=== PATIENT | male | born 1950 | race Caucasian/White ===

== ENCOUNTER → 2018-01-23 | Day surgery (SDC) | payer OTHER, SELFPAY | END | disposition home or self-care (01) | PROVIDERS: Family Provider Family Medicine; PCP Family Medicine; Visit Provider Surgery | DX: Z12.11 Encounter for screening for malignant neoplasm of colon (principal); K57.30 Diverticulosis of large intestine without perforation or abscess without bleeding; K64.0 First degree hemorrhoids; D12.0 Benign neoplasm of cecum | CPT/HCPCS: 45380; 99152; 99153; J2250; J3010 ==

== ENCOUNTER → 2019-02-11 07:09 | Outpatient (CLI) | payer OTHER, SELFPAY ==
[2019-02-11 08:11] LABS: Add Manual Diff / Slide Review NO; Basophils Absolute Auto 0 /uL (0-100); Basophils Percent Auto 0.7 % (0-2); Eosinophils Absolute Auto 100 /uL (0-450); Eosinophils Percent Auto 1.3 % (2-4); Hematocrit 47.3 % (41-53); Hemoglobin 15.8 g/dL (13.5-17.5); Lymphocytes Absolute Auto 1500 /uL (1100-4500); Lymphocytes Percent Auto 22.7 % (25-40); Mean Corpuscular HGB Conc 33.5 % (30-36); Mean Corpuscular Hemoglobin 32.8 PG (26-34); Monocytes Absolute Auto 500 /uL (0-900); Monocytes Percent Auto 7.5 % (3-14); Neutrophils Absolute Auto 4500 /uL (1500-7000); Neutrophils Percent Auto 67.8 % (50-75); Platelet Count 256 X10^3/uL (150-400); Red Blood Cell Count 4.83 X10^6/uL (4.5-5.9); Red Cell Distribution Width 12.9 % (11.6-14.8); White Blood Cell Count 6.7 X10^3/uL (4.5-11.0)
[2019-02-11 08:15] LABS: Alanine Aminotransferase 29 IU/L (21-72); Albumin 3.9 g/dL (3.5-5.0); Albumin Globulin Ratio 1.4 (1.0-2.8); Alkaline Phosphatase 70 U/L (38-126); Aspartate Aminotransferase 44 IU/L (17-59); BUN Creatinine Ratio 21.1 (6-22); Bilirubin Total 0.8 mg/dL (0.2-1.3); Blood Urea Nitrogen 19 mg/dL (9-20); Carbon Dioxide 30 mmol/L (22-32); Chloride 103 mmol/L (98-107); Cholesterol 145 mg/dL (140-199); Estimated Glomerular Filt Rate > 60.0 mL/min (>60); Globulin 2.7 g/dL (1.7-4.1); Glucose 105 mg/dL (80-110); HDL Cholesterol 42 mg/dL (40-60); HEMOLYSIS < 15 (0-50); LDL Cholesterol Calculated 93 mg/dL (<100); Sodium 140 mmol/L (137-145); Total Protein 6.6 g/dL (6.3-8.2); Triglycerides 51 mg/dL (35-150)
[2019-02-11 08:42] LABS: Prostate Specific Antigen Scrn 1.15 ng/mL (0.1-4.0)
[2019-02-11 08:44] LABS: Thyroid Stimulating Hormone 2.75 uIU/mL (0.47-4.68)
== END ==
PROVIDERS: PCP Family Medicine; Visit Provider Family Medicine
DX: R89.9 Unspecified abnormal finding in specimens from other organs, systems and tissues (principal); Z12.5 Encounter for screening for malignant neoplasm of prostate; Z13.0 Encounter for screening for diseases of the blood and blood-forming organs and certain disorders involving the immune mechanism; Z13.1 Encounter for screening for diabetes mellitus; Z13.220 Encounter for screening for lipoid disorders; Z68.32 Body mass index [BMI] 32.0-32.9, adult
CPT/HCPCS: 36415; 80053; 80061; 84443; 85025; G0103

== ENCOUNTER → 2020-04-10 07:14 | Outpatient (CLI) | payer OTHER, SELFPAY ==
[2020-04-10 08:29] LABS: Add Manual Diff / Slide Review NO; Basophils Absolute Auto 0 /uL (0-100); Basophils Percent Auto 0.7 % (0-2); Eosinophils Absolute Auto 200 /uL (0-450); Eosinophils Percent Auto 3.3 % (2-4); Hematocrit 45.2 % (41-53); Lymphocytes Absolute Auto 1400 /uL (1100-4500); Lymphocytes Percent Auto 23.9 % (25-40); Mean Corpuscular HGB Conc 35.3 % (30-36); Mean Corpuscular Hemoglobin 34.7 PG (26-34); Mean Corpuscular Volume 98.3 fL (80-100); Monocytes Absolute Auto 400 /uL (0-900); Monocytes Percent Auto 7.7 % (3-14); Neutrophils Absolute Auto 3700 /uL (1500-7000); Neutrophils Percent Auto 64.4 % (50-75); Platelet Count 203 X10^3/uL (150-400); Red Cell Distribution Width 12.5 % (11.6-14.8); White Blood Cell Count 5.8 X10^3/uL (4.5-11.0)
[2020-04-10 08:54] LABS: Alanine Aminotransferase 24 IU/L (<50); Albumin 3.7 g/dL (3.5-5.0); Albumin Globulin Ratio 1.5 (1.0-2.8); Alkaline Phosphatase 49 U/L (38-126); Aspartate Aminotransferase 39 IU/L (17-59); BUN Creatinine Ratio 19.5 (6-22); Bilirubin Total 0.7 mg/dL (0.2-1.3); Blood Urea Nitrogen 17 mg/dL (9-20); Calcium 9.2 mg/dL (8.4-10.2); Carbon Dioxide 28 mmol/L (22-32); Chloride 105 mmol/L (98-107); Cholesterol 128 mg/dL (140-199); Estimated Glomerular Filt Rate > 60.0 mL/min (>60); Globulin 2.4 g/dL (1.7-4.1); Glucose 102 mg/dL (80-110); HDL Cholesterol 44 mg/dL (40-60); HEMOLYSIS < 15 (0-50); LDL Cholesterol Calculated 75 mg/dL (<100); Potassium 4.3 mmol/L (3.4-5.1); Sodium 138 mmol/L (137-145); Total Protein 6.1 g/dL (6.3-8.2); Triglycerides 44 mg/dL (35-150)
[2020-04-10 09:17] LABS: Prostate Specific Antigen Scrn 0.866 ng/mL (0.1-4.0)
== END ==
PROVIDERS: PCP Family Medicine; Referring Provider Family Medicine; Visit Provider Family Medicine
DX: N40.1 Benign prostatic hyperplasia with lower urinary tract symptoms (principal); R39.11 Hesitancy of micturition; Z12.5 Encounter for screening for malignant neoplasm of prostate
CPT/HCPCS: 36415; 80053; 80061; 85025; G0103

== ENCOUNTER → 2021-01-11 15:28 | Outpatient (CLI) | payer OTHER, SELFPAY ==
--- NOTE | 2021-01-11 15:31 | DI.RAD.S_ITS ---
PROCEDURE: XR CHEST 2V INDICATIONS: dizziness TECHNIQUE: 2 views of the chest were acquired. COMPARISON: [facility], , XR CXR 2 VIEW, 09/16/2003, 12:20. FINDINGS: Surgical changes and devices: None. Lungs and pleura: Lungs are clear. No pleural effusions or pneumothorax. Mediastinum: Mediastinal contours are normal. Heart size is normal. Bones and chest wall: No suspicious bony abnormalities. Soft tissues appear unremarkable. IMPRESSION: No acute cardiopulmonary disease. Dictated by: Suzie Denton M.D. on 01/11/2021 at 17:23 Approved by: Suzie Denton M.D. on 01/11/2021 at 17:23
--- NOTE | 2021-01-11 15:31 | DI.RAD.S_ITS ---
PROCEDURE: XR SHOULDER LT MIN 2V INDICATIONS: Left shoulder pain. TECHNIQUE: 3 views of the shoulder were acquired. COMPARISON: [facility], CR, XR CHEST 2V, 01/11/2021, 15:46. FINDINGS: Bones: No fractures or dislocations. No suspicious bony lesions. Downsloping acromion. Visualized ribs appear intact. Soft tissues: Calcific densities over the humeral head suspicious for calcific tendinitis. IMPRESSION: 1. Downsloping acromion likely impinging the rotator cuff tendons. If clinically indicated, MRI would be helpful. 2. Suspect rotator cuff calcific tendinitis. Dictated by: Suzie Denton M.D. on 01/11/2021 at 17:23 Approved by: Suzie Denton M.D. on 01/11/2021 at 17:25
[2021-01-11 16:05] LABS: Add Manual Diff / Slide Review NO; Basophils Absolute Auto 0 /uL (0-100); Basophils Percent Auto 0.5 % (0-2); Eosinophils Absolute Auto 100 /uL (0-450); Eosinophils Percent Auto 0.8 % (2-4); Hematocrit 42.5 % (41-53); Hemoglobin 14.5 g/dL (13.5-17.5); Lymphocytes Absolute Auto 1300 /uL (1100-4500); Lymphocytes Percent Auto 15.9 % (25-40); Mean Corpuscular Hemoglobin 32.2 PG (26-34); Mean Corpuscular Volume 94.5 fL (80-100); Monocytes Absolute Auto 600 /uL (0-900); Monocytes Percent Auto 6.6 % (3-14); Neutrophils Absolute Auto 6400 /uL (1500-7000); Neutrophils Percent Auto 76.2 % (50-75); Platelet Count 247 X10^3/uL (150-400); Red Cell Distribution Width 12.9 % (11.6-14.8); White Blood Cell Count 8.4 X10^3/uL (4.5-11.0)
[2021-01-11 16:35] LABS: Alanine Aminotransferase 18 IU/L (<50); Albumin Globulin Ratio 1.5 (1.0-2.8); Alkaline Phosphatase 68 U/L (38-126); Aspartate Aminotransferase 37 IU/L (17-59); BUN Creatinine Ratio 25.6 (6-22); Bilirubin Total 0.5 mg/dL (0.2-1.3); Blood Urea Nitrogen 21 mg/dL (9-20); Calcium 9.6 mg/dL (8.4-10.2); Carbon Dioxide 30 mmol/L (22-32); Chloride 105 mmol/L (98-107); Estimated Glomerular Filt Rate > 60.0 mL/min (>60); Globulin 2.6 g/dL (1.7-4.1); Glucose 121 mg/dL (80-110); HEMOLYSIS < 15 (0-50); Potassium 4.2 mmol/L (3.4-5.1); Sodium 141 mmol/L (137-145); Total Protein 6.6 g/dL (6.3-8.2)
[2021-01-11 17:52] LABS: TSH w/ Reflex to FT4 2.07 uIU/mL (0.47-4.68)
== END ==
PROVIDERS: PCP Family Medicine; Referring Provider Family Medicine; Visit Provider Family Medicine
DX: D33.2 Benign neoplasm of brain, unspecified (principal); R42 Dizziness and giddiness; D33.3 Benign neoplasm of cranial nerves; M25.512 Pain in left shoulder
CPT/HCPCS: 36415; 71046; 73030; 80053; 84443; 85025

== ENCOUNTER → 2021-01-22 13:45 | Outpatient (CLI) | payer OTHER, SELFPAY ==
--- NOTE | 2021-01-22 13:46 | DI.MRI.S_ITS ---
PROCEDURE: MR BRAIN (IAC) WWO CON INDICATIONS: persistent vertigo and hx of acoustic neuroma TECHNIQUE: Noncontrast sagittal T1 spin echo, axial FLAIR, axial gradient echo, axial diffusion and ADC through the brain. Axial thin-slice 3D CISS, coronal TruFISP, axial T1 spin echo with fat saturation through the internal auditory canals. After the administration of contrast, thin slice axial and coronal T1 spin echo with fat saturation through the internal auditory canals, and axial T1 spin echo with fat saturation through the brain. COMPARISON: [facility], , BRAIN (IAC) W AND WO CONTRAST, 10/05/2009, 8:08. [facility], , MRI BRAIN (IAC) W/WO CONTRAST, 10/08/2006, 10:25. [facility], , MRI BRAIN (IAC) W/WO CONTRAST, 09/21/2003, 14:02. FINDINGS: Image quality: Excellent. Cerebellopontine angles: No cerebellopontine angle masses. Inner ear structures appear normally formed. No suspicious enhancement in the internal auditory canal or along the course of the 7th cranial nerve. CSF spaces: Ventricles are normal in size and shape. No extra-axial fluid collections. Basal cisterns are patent. Brain: No intracranial bleeds or mass effects. Ferrer-white matter interface is intact. No abnormal intracranial enhancement. Diffusion weighted images demonstrate no acute ischemic insults. Brainstem appears normal. Curvilinear foci of decreased signal on all sequences and GRE blossoming noted in the right parietal lobe which is not significantly changed in size or contour compared to prior exams. Lesion may represent an area of focal superficial siderosis or could represent thrombosed venous anomaly such as DVA. Normal intravascular flow voids are present. Dural sinuses demonstrate normal postcontrast enhancement. Skull and face: Calvarial marrow signal is normal. Orbits appear normal. Sinuses: Mucosal thickening causes complete opacification of the right maxillary sinus. The mastoids are clear. IMPRESSION: 1. No evidence of residual or recurrent vestibular schwannoma. 2. No acute intracranial disease process. 3. No abnormal intracranial mass or mass effect. 4. No areas of acute or chronic infarction. 5. No suspicious postcontrast enhancement. Dictated by: Kaylan Hernandez MD, PhD on 01/22/2021 at 16:29 Approved by: Kaylan Hernandez MD, PhD on 01/22/2021 at 16:38
== END ==
PROVIDERS: PCP Family Medicine; Referring Provider Family Medicine; Visit Provider Family Medicine
DX: R42 Dizziness and giddiness (principal); D33.3 Benign neoplasm of cranial nerves
CPT/HCPCS: 70553; A9579

== ENCOUNTER → 2021-04-18 13:03 | Outpatient (CLI) | payer OTHER, SELFPAY ==
--- NOTE | 2021-04-18 13:48 | DI.MRI.S_ITS ---
PROCEDURE: MR SHOULDER LT WO CON INDICATIONS: ongoing pain TECHNIQUE: Noncontrast oblique coronal T2 fast spin echo with fat saturation, oblique sagittal T1 spin echo and T2 fast spin echo with fat saturation, axial T1 spin echo and T2 fast spin echo with fat saturation through the shoulder. COMPARISON: None. FINDINGS: Image quality: Excellent. Rotator cuff: There is full-thickness rupture of distal supraspinatus at its insertion on the humeral head with up to 2.9 cm medial retraction of torn tendon fibers to the level of acromion. Tendinosis and low-grade articular surface partial-thickness tear involving distal infraspinatus at its insertion on the humeral head is also seen. Distal subscapularis tendinosis and low-grade intrasubstance partial-thickness tear is noted. Sagittal images demonstrate moderate supraspinatus muscle atrophy. Bones and bursae: No bone marrow contusions or fractures. Moderate acromioclavicular joint and glenohumeral joint osteoarthritic changes are seen. Moderate amount of joint effusion and subacromial subdeltoid bursal fluid is noted. No gross intra-articular loose body. Capsule and soft tissues: There is suggestion of focal superior anterior labral tear at 12 to 1 o'clock position. The long head of the biceps tendinosis and moderate grade partial-thickness tear is seen. The rotator interval appears normal, without fibrosis. The coracohumeral ligament is normal in thickness. IMPRESSION: 1. Full-thickness rupture of distal supraspinatus at its insertion on the humeral head with up to 2.9 cm medial retraction of torn tendon fibers to the level of acromion. Moderate supraspinatus muscle atrophy. 2. Tendinosis and low to moderate grade articular surface partial thickness tear involving distal infraspinatus. Tendinosis and low-grade intrasubstance partial-thickness tear involving distal subscapularis. 3. Moderate acromioclavicular joint and glenohumeral joint osteoarthritis. Moderate amount of joint effusion and subacromial subdeltoid bursal fluid. 4. Suggestion of focal superior anterior labral tear at 12 to 1 o'clock position. 5. Tendinosis and moderate grade intrasubstance partial-thickness tear involving intra-articular portion of proximal long head of biceps tendon. Dictated by: Chu Wheeler M.D. on 04/18/2021 at 15:50 Approved by: Chu Wheeler M.D. on 04/18/2021 at 15:54
== END ==
PROVIDERS: PCP Family Medicine; Referring Provider Family Medicine; Visit Provider Family Medicine
DX: M25.512 Pain in left shoulder (principal); M75.122 Complete rotator cuff tear or rupture of left shoulder, not specified as traumatic; M19.012 Primary osteoarthritis, left shoulder; S46.112A Strain of muscle, fascia and tendon of long head of biceps, left arm, initial encounter
CPT/HCPCS: 73221

== ENCOUNTER 2021-06-12 09:00 | Outpatient (RCR) | payer OTHER, SELFPAY ==
--- NOTE | 2021-02-26 16:03 | PT.OIE ---
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) Dizziness and giddiness (02/26/21) Other reduced mobility (02/26/21) Past Medical History (Last Updated 01/11/21 @ 14:39 by Francesco Chester MD) Acoustic neuroma (1987) Benign colon polyp (01/23/18) BPH w urinary obs/LUTS Diverticular disease (2006) Edema Hearing loss (1987) History of poliovirus vaccination (1954) History of recurrent ear infection (1955) Hyperglycemia Measles (1955) Nocturia Screening for hyperlipidemia Skin cancer (1993) Tinnitus (1967) Vertigo Past Surgical History (Last Reviewed 11/22/20 @ 18:22 by Marcelo Weeks MD) Anesthesia H/O knee surgery H/O vasectomy History of brain surgery (1987) History of colonoscopy (11/24/06) History of colonoscopy with polypectomy (01/23/18) Status post surgical removal of malignant neoplasm of skin (2010) Status post tonsillectomy and adenoidectomy Visit Care Team Role Provider Type Neal Foote DO Attending Provider Physician Primary Care Provider Referring Provider Specialty: [facility] Address: [address] [place] [address], [facility] Email: Physical Therapy Initial Evaluation PT-OP-A Visit Information Start: 02/26/21 07:29 Freq: Status: Active Protocol: Document 02/26/21 14:31 MB (Rec: 02/26/21 14:49 MB [id number]) Out-Patient Physical Therapy Visit Information Visit Information Visit Type Initial Evaluation Visit Note [facility] [place], Medicare Advantage Visit Start Time 14:31 Visit Stop Time 15:15 Total Visit Minutes 44 Visit Number 1 Evaluation Information Evaluation Date 02/26/21 Precautions Precautions Fall risk PT-OP-B Current Condition Start: 02/26/21 07:29 Freq: Status: Active Protocol: Document 02/26/21 14:31 MB (Rec: 02/26/21 14:49 MB [id number]) Current Condition History of Current Condition Onset Date 12/12/20 Current Complaints Balance issues come and go History of Current Condition Pt states that after his second COVID shot, he had a lot of dizziness and he was horizontal for two days. He had worst dizziness and nausea with eyes opened. He vomited a lot. Pt saw a neurologist. He was concerned about PD and the neurologist said it is not PD. He was told to keep doing the Carrie 3x/day which he has been doing. He was told that dizziness should go away within few months. He went to an opthamologist and was told that his vision is okay. He did see abnormal eye movement in his right eye. 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 He lost his balance nerve and auditory nerve with the surgery. 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 He had balance trouble after the surgery. Ultimately, his brain adjusted and he had normal balance and could ride a bike. He has ringing in his right ear. PMH: essential tremor, removed right acoustic neuroma, B foot numbness Pt states that he is getting better. He did have falls and injured his left shoulder. He always fell to the left. Pt reports left shoulder pain rated 3-4/10. Pt reports 5 falls in the last year and three in the last three months . He is just now feeling comfortable driving in town. Pt reports numbness and tingling in bottom of his feet only, vision changes with reports that his vision bounces around and roaring/ ringing in the ears, performance of sit-ups, chronic hearing change. Pt denies ear pressure, history of concussion or whiplash, weakness, sinus/allergy issues , trouble swallowing, recent overhead lifting, B12 deficiency, eye pressure changes, chirpractor treatment , TMJ/headache. Pt is afraid of falling, walking downstairs is a challenge, he cannot ride a bike and occ has to use his walking sticks. Walking in the dark is really a problem. Prior Treatments and Tests MR brain: some changes on the report but the impression says NAD X-ray left shoulder: downsloping acromion likely impinging the rotator cuff tendons, if clinically indicated, MRI may be helpful. Treatment Goals Patient/Caregiver Goals To improve balance and confidence with walking. PT-OP-C Subjective Start: 02/26/21 07:29 Freq: Status: Active Protocol: Document 02/26/21 14:31 MB (Rec: 02/26/21 15:31 MB [id number]) OP-PT Subjective Patient Comments Patient Comments See history of current condition Patient Reported Progress Improving PT-OP-D Balance Start: 02/26/21 07:29 Freq: Status: Active Protocol: Document 02/26/21 14:31 MB (Rec: 02/26/21 16:03 MB [id number]) OP-PT Balance Assessment Sitting Balance Static Sitting Balance Ability Fair Dynamic Sitting Balance Ability Fair Sitting Balance Comments UE support for static and dynamic sitting balance Standing Balance Static Standing Balance Ability Fair Dynamic Standing Balance Ability Fair Standing Balance Comments Pt occ reaches for chair d/t LOB Mullins Fall Scale Copyright Permission PT-OP-H Neuro Start: 02/26/21 07:29 Freq: Status: Active Protocol: Document 02/26/21 14:31 MB (Rec: 02/26/21 16:03 MB [id number]) Sensation Evaluation Comments Summary Comments Pt reports chronic change in sensation both feet Coordination Evaluation Comments Coordination Comments B finger to nose altered d/t B tremor, more noticeable in right UE today Vital Signs Comments Vital Signs Comments Positive orthostatic assessment with BP and HR in LUE: supine 168/81, 73; standing 150/80, 76; standing 30 sec 140/76, 69; standing 1 min 30 sec 144/77, 70. Pt reports spinning type dizziness upon standing PT-OP-J Posture/Palpation/Skin Start: 02/26/21 07:29 Freq: Status: Active Protocol: Document 02/26/21 14:31 MB (Rec: 02/26/21 16:03 MB [id number]) Posture Evaluation Comments Posture Comments Standing with shoes donned: forward head with left tragus 2 1/2 inch in front of left AC joint, rounded left shoulder, decreased cervical and thoracic curvature, increased convexity right thoracic spine , right shoulder lower than the left with some scapular positioning differences, anterior tilt pelvis, head rests in mild right rotation and left SB PT-OP-K Range of Motion Start: 02/26/21 07:29 Freq: Status: Active Protocol: Document 02/26/21 14:31 MB (Rec: 02/26/21 16:03 MB [id number]) Cervical Spine Range of Motion Cervical Spine Active Testing Position Standing Flexion 40 Extension 30 Rotation Left 20 Rotation Right 35 Comments Increased tension right SCM and scalenes Shoulder Goniometric Range of Motion Shoulder ROM Limitations Comments B shoulder flexion and abduction grossly normal and pt reports pain 3-4/10 left shoulder PT-OP-M Strength Start: 02/26/21 07:29 Freq: Status: Active Protocol: Document 02/26/21 14:31 MB (Rec: 02/26/21 16:03 MB [id number]) Shoulder Strength Shoulder Manual Muscle Testing Left Comments NT in setting of injury and painful active movement Right Flexion 5 Normal Abduction (C5) 5 Normal Elbow/Forearm Strength Elbow and Forearm Manual Muscle Testing Left Comments NT in setting of left shoulder injury Right Flexion (C6) 5 Normal Extension (C7) 5 Normal Pronation 5 Normal Supination 5 Normal Wrist Strength Wrist Manual Muscle Testing Left Flexion (C7) 5 Normal Extension (C6) 4 Good Right Flexion (C7) 5 Normal Extension (C6) 5 Normal PT-OP-O Vestibular Start: 02/26/21 07:29 Freq: Status: Active Protocol: Document 02/26/21 14:31 MB (Rec: 02/26/21 16:03 MB [id number]) Vestibular Assessment Visual Testing Smooth Pursuits Horizontal Normal Smooth Pursuits Vertical Normal Gaze Evoked Nystagmus With Fixation Negative Convergence Test WNL Spontaneous Nystagmus Negative Positional Testing [place]-Hallpike Negative Left,Negative Right Rolling Test Negative Left,Negative Right Comments Vestibular Comments Pt reports dizziness with Roll Test moving from right to left and may have had one beat nystagmus but very difficult to see if it was PT-OP-Q Treatments Start: 02/26/21 07:29 Freq: Status: Active Protocol: Document 02/26/21 14:31 MB (Rec: 02/26/21 16:03 MB [id number]) Self-Care/Home Management Treatment Education Other Education Stop sit ups and self-Carrie Increase non-caffeinated fluid intake Signs and sxs of PD, BPPV, decreasing BP Proper sleeping position with towel roll in pillow case PT-OP-T Assessment and Plan Start: 02/26/21 07:29 Freq: Status: Active Protocol: Document 02/26/21 14:31 MB (Rec: 02/26/21 16:03 MB [id number]) Physical Therapy Assessment Rehab Potential Rehabilitation Potential Fair Evaluation Complexity Number of Personal Factors/Comorbidities 1-2 Number of Body Systems Impaired 3 Clinical Presentation at Evaluation Evolving Impairments Impairments Activity Tolerance,Balance, Coordination,Functional Activities,Functional Mobility ,Gait,Pain,Posture,ROM, Sensation,Soft Tissue Mobility ,Strength,Vestibular Other Concerns Fall Risk Yes Goals 4 Marine Electrician Goal (LTG) Pt will gait train at least 1400 feet in 6 minutes without AD to decrease fall risk by . LTG Duration 8 weeks 3 Marine Electrician Goal (LTG) Pt will perform HEP with I including postural, cervical, VOR, balance, and relaxation exercises to improve dizziness and balance by 04/28/21. LTG Duration 8 weeks 2 Skilled Nursing Goal (LTG) Pt will perform WNLs on FGA to decrease fall risk by 04/28/21 . LTG Duration 8 weeks 1 Marine Electrician Goal (LTG) Pt will deny falls to decrease risk of injury by 04/28/21. LTG Duration 8 weeks Assessment Summary Assessment Pt is a 70 y/o male presenting with postural changes, thoracic and cervical limitations, cervical myofascial changes, imbalance, B UE and cervical tremor and left shoulder pain and weakness. BPPV testing is essentially negative with reports of dizziness with log roll from right side lying to upright (rolling left) with perhaps one quick beat nystagmus. Orthostatic testing is positive. Pt reports he has been performing the Carrie 3x/day and performing sit ups. PT ed him to stop this in setting of his cervical changes and dizziness. 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 Pt's brain MRI does have a lot of comments in it and the overall impression is negative. He has a history of right schanoma removal. Of note, his right pupil constricts less than the left when checked by pen light in dark room today. Physical Therapy Plan Frequency and Duration Frequency of Treatment 2x/Week Duration of Treatment 8 weeks Plan of Care Start Date 02/26/21 Plan of Care End Date 04/30/21 Therapeutic Interventions Therapeutic Interventions Balance Training,Canalithic Repositioning,Coordination Training,Gait Training,Home Exercise Program,Joint Mobilizations,Manual Therapy, Neuromuscular Re-education, Patient/Caregiver Education, Self-Care/Home Management,Soft Tissue Mobilization,Taping, Therapeutic Activities, Therapeutic Exercises, Vestibular Rehabilitation Modalities Cold Pack/Ice Massage,Hot Packs Next Visit Focus/Plan Next Note Type Treatment Note Next Visit Plan Postural training, use of racquet ball, consider VOR testing
--- NOTE | 2021-02-26 16:03 | PT.OPPOC ---
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) Dizziness and giddiness (02/26/21) Other reduced mobility (02/26/21) Visit Care Team Role Provider Type Neal Foote DO Attending Provider Physician Primary Care Provider Referring Provider Specialty: [facility] Practice Address: [address] [place] [address], [facility] Email: Plan Of Care PT-OP-T Assessment and Plan Start: 02/26/21 07:29 Freq: Status: Active Protocol: Document 02/26/21 14:31 MB (Rec: 02/26/21 16:03 MB [id number]) Physical Therapy Assessment Rehab Potential Rehabilitation Potential Fair Evaluation Complexity Number of Personal Factors/Comorbidities 1-2 Number of Body Systems Impaired 3 Clinical Presentation at Evaluation Evolving Impairments Impairments Activity Tolerance,Balance, Coordination,Functional Activities,Functional Mobility ,Gait,Pain,Posture,ROM, Sensation,Soft Tissue Mobility ,Strength,Vestibular Other Concerns Fall Risk Yes Goals 4 Mcc Goal (LTG) Pt will gait train at least 1400 feet in 6 minutes without AD to decrease fall risk by . LTG Duration 8 weeks 3 Physician Relations Specialist Goal (LTG) Pt will perform HEP with I including postural, cervical, VOR, balance, and relaxation exercises to improve dizziness and balance by 04/28/21. LTG Duration 8 weeks 2 Mcc Goal (LTG) Pt will perform WNLs on FGA to decrease fall risk by 04/28/21 . LTG Duration 8 weeks 1 Physician Relations Specialist Goal (LTG) Pt will deny falls to decrease risk of injury by 04/28/21. LTG Duration 8 weeks Assessment Summary Assessment Pt is a 70 y/o male presenting with postural changes, thoracic and cervical limitations, cervical myofascial changes, imbalance, B UE and cervical tremor and left shoulder pain and weakness. BPPV testing is essentially negative with reports of dizziness with log roll from right side lying to upright (rolling left) with perhaps one quick beat nystagmus. Orthostatic testing is positive. Pt reports he has been performing the Carrie 3x/day and performing sit ups. PT ed him to stop this in setting of his cervical changes and dizziness. 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 Pt's brain MRI does have a lot of comments in it and the overall impression is negative. He has a history of right schanoma removal. Of note, his right pupil constricts less than the left when checked by pen light in dark room today. Physical Therapy Plan Frequency and Duration Frequency of Treatment 2x/Week Duration of Treatment 8 weeks Plan of Care Start Date 02/26/21 Plan of Care End Date 04/30/21 Therapeutic Interventions Therapeutic Interventions Balance Training,Canalithic Repositioning,Coordination Training,Gait Training,Home Exercise Program,Joint Mobilizations,Manual Therapy, Neuromuscular Re-education, Patient/Caregiver Education, Self-Care/Home Management,Soft Tissue Mobilization,Taping, Therapeutic Activities, Therapeutic Exercises, Vestibular Rehabilitation Modalities Cold Pack/Ice Massage,Hot Packs Next Visit Focus/Plan Next Note Type Treatment Note Next Visit Plan Postural training, use of racquet ball, consider VOR testing Plan of Care Dates Plan of Care Start Date 02/26/21 Plan of Care End Date 04/30/21 Electronically Signed by: Frida Polo PT 02/26/21 [id number] Please Sign and Return: I have reviewed this Plan of Care and certify that the skilled therapy services above are required to meet the patient?s needs. Physician Signature Date Printed Name and Credentials Clinical Instructor Signature Printed Name and Credentials
--- NOTE | 2021-03-01 15:39 | PT.OTN ---
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) Dizziness and giddiness (03/01/21) Other reduced mobility (03/01/21) Physical Therapy Treatment Note PT-OP-A Visit Information Start: 02/26/21 07:29 Freq: Status: Active Protocol: Document 03/01/21 13:48 MB (Rec: 03/01/21 14:34 MB [id number]) Out-Patient Physical Therapy Visit Information Visit Information Visit Type Treatment Note Visit Note [facility] [place], Medicare Advantage Pt's , Glory, comes to appointment Visit Start Time 13:48 Visit Stop Time 14:30 Total Visit Minutes 42 Visit Number 2 PT-OP-B Current Condition Start: 02/26/21 07:29 Freq: Status: Active Protocol: Document 02/26/21 14:31 MB (Rec: 02/26/21 14:49 MB [id number]) Current Condition History of Current Condition Onset Date 12/12/20 Current Complaints Balance issues come and go History of Current Condition Pt states that after his second COVID shot, he had a lot of dizziness and he was horizontal for two days. He had worst dizziness and nausea with eyes opened. He vomited a lot. Pt saw a neurologist. He was concerned about PD and the neurologist said it is not PD. He was told to keep doing the Carrie 3x/day which he has been doing. He was told that dizziness should go away within few months. He went to an opthamologist and was told that his vision is okay. He did see abnormal eye movement in his right eye. 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 He lost his balance nerve and auditory nerve with the surgery. 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 He had balance trouble after the surgery. Ultimately, his brain adjusted and he had normal balance and could ride a bike. He has ringing in his right ear. PMH: essential tremor, removed right acoustic neuroma, B foot numbness Pt states that he is getting better. He did have falls and injured his left shoulder. He always fell to the left. Pt reports left shoulder pain rated 3-4/10. Pt reports 5 falls in the last year and three in the last three months . He is just now feeling comfortable driving in town. Pt reports numbness and tingling in bottom of his feet only, vision changes with reports that his vision bounces around and roaring/ ringing in the ears, performance of sit-ups, chronic hearing change. Pt denies ear pressure, history of concussion or whiplash, weakness, sinus/allergy issues , trouble swallowing, recent overhead lifting, B12 deficiency, eye pressure changes, chirpractor treatment , TMJ/headache. Pt is afraid of falling, walking downstairs is a challenge, he cannot ride a bike and occ has to use his walking sticks. Walking in the dark is really a problem. Prior Treatments and Tests MR brain: some changes on the report but the impression says NAD X-ray left shoulder: downsloping acromion likely impinging the rotator cuff tendons, if clinically indicated, MRI may be helpful. Treatment Goals Patient/Caregiver Goals To improve balance and confidence with walking. PT-OP-C Subjective Start: 02/26/21 07:29 Freq: Status: Active Protocol: Document 03/01/21 13:48 MB (Rec: 03/01/21 14:34 MB [id number]) OP-PT Subjective Patient Comments Patient Comments Pt presents in , Glory, who is a retired teacher. He asks about PT's comments about his spinal changes, sit-ups, superman and double leg lifts. Pt con't to feel like his eyes are bouncing in his head. PT-OP-D Balance Start: 02/26/21 07:29 Freq: Status: Active Protocol: Document 02/26/21 14:31 MB (Rec: 02/26/21 16:03 MB [id number]) OP-PT Balance Assessment Sitting Balance Static Sitting Balance Ability Fair Dynamic Sitting Balance Ability Fair Sitting Balance Comments UE support for static and dynamic sitting balance Standing Balance Static Standing Balance Ability Fair Dynamic Standing Balance Ability Fair Standing Balance Comments Pt occ reaches for chair d/t LOB Mullins Fall Scale Copyright Permission PT-OP-H Neuro Start: 02/26/21 07:29 Freq: Status: Active Protocol: Document 02/26/21 14:31 MB (Rec: 02/26/21 16:03 MB [id number]) Sensation Evaluation Comments Summary Comments Pt reports chronic change in sensation both feet Coordination Evaluation Comments Coordination Comments B finger to nose altered d/t B tremor, more noticeable in right UE today Vital Signs Comments Vital Signs Comments Positive orthostatic assessment with BP and HR in LUE: supine 168/81, 73; standing 150/80, 76; standing 30 sec 140/76, 69; standing 1 min 30 sec 144/77, 70. Pt reports spinning type dizziness upon standing PT-OP-J Posture/Palpation/Skin Start: 02/26/21 07:29 Freq: Status: Active Protocol: Document 02/26/21 14:31 MB (Rec: 02/26/21 16:03 MB [id number]) Posture Evaluation Comments Posture Comments Standing with shoes donned: forward head with left tragus 2 1/2 inch in front of left AC joint, rounded left shoulder, decreased cervical and thoracic curvature, increased convexity right thoracic spine , right shoulder lower than the left with some scapular positioning differences, anterior tilt pelvis, head rests in mild right rotation and left SB PT-OP-K Range of Motion Start: 02/26/21 07:29 Freq: Status: Active Protocol: Document 02/26/21 14:31 MB (Rec: 02/26/21 16:03 MB [id number]) Cervical Spine Range of Motion Cervical Spine Active Testing Position Standing Flexion 40 Extension 30 Rotation Left 20 Rotation Right 35 Comments Increased tension right SCM and scalenes Shoulder Goniometric Range of Motion Shoulder ROM Limitations Comments B shoulder flexion and abduction grossly normal and pt reports pain 3-4/10 left shoulder PT-OP-M Strength Start: 02/26/21 07:29 Freq: Status: Active Protocol: Document 02/26/21 14:31 MB (Rec: 02/26/21 16:03 MB [id number]) Shoulder Strength Shoulder Manual Muscle Testing Left Comments NT in setting of injury and painful active movement Right Flexion 5 Normal Abduction (C5) 5 Normal Elbow/Forearm Strength Elbow and Forearm Manual Muscle Testing Left Comments NT in setting of left shoulder injury Right Flexion (C6) 5 Normal Extension (C7) 5 Normal Pronation 5 Normal Supination 5 Normal Wrist Strength Wrist Manual Muscle Testing Left Flexion (C7) 5 Normal Extension (C6) 4 Good Right Flexion (C7) 5 Normal Extension (C6) 5 Normal PT-OP-O Vestibular Start: 02/26/21 07:29 Freq: Status: Active Protocol: Document 02/26/21 14:31 MB (Rec: 02/26/21 16:03 MB [id number]) Vestibular Assessment Visual Testing Smooth Pursuits Horizontal Normal Smooth Pursuits Vertical Normal Gaze Evoked Nystagmus With Fixation Negative Convergence Test WNL Spontaneous Nystagmus Negative Positional Testing М[place]-Hallpike Negative Left,Negative Right Rolling Test Negative Left,Negative Right Comments Vestibular Comments Pt reports dizziness with Roll Test moving from right to left and may have had one beat nystagmus but very difficult to see if it was PT-OP-Q Treatments Start: 02/26/21 07:29 Freq: Status: Active Protocol: Document 03/01/21 13:48 MB (Rec: 03/01/21 15:39 MB [id number]) Self-Care/Home Management Treatment Education Other Education Extensive education to patient and about PT findings about pt's posture, further plan to recheck orthostatics and for BPPV, PT plan for postural, vestibular and visual motor exercises. Pt presents with negative orthostatic hypotension with BP and HR in left UE: supine 144/84; standing 142/70, 70; standing 1' 138/80, 73; standing 2' 148/84, 75. Pt had spinning vertigo upon standing up quickly from the left and Semont was performed Canalithic Repositioning BPPV Treatment Semont Comments L [place]-Hallpike negative for nystagmus though findings for 1 to 2 beat rotatory nystagmus found with rolling pt from right side lying to center and also with lying down on the the left. Treated with modified Carrie for left posterior canalithiasis. Once this was done, roll test was performed and pt still with dizziness and so treated with Semont for left posterior canalithiasis. PT-OP-T Assessment and Plan Start: 02/26/21 07:29 Freq: Status: Active Protocol: Document 03/01/21 13:48 MB (Rec: 03/01/21 14:34 MB [id number]) Physical Therapy Assessment Rehab Potential Rehabilitation Potential Fair Evaluation Complexity Number of Personal Factors/Comorbidities 1-2 Number of Body Systems Impaired 3 Clinical Presentation at Evaluation Evolving Impairments Impairments Activity Tolerance,Balance, Coordination,Functional Activities,Functional Mobility ,Gait,Pain,Posture,ROM, Sensation,Soft Tissue Mobility ,Strength,Vestibular Other Concerns Fall Risk Yes Goals 4 Crane Crew Supervisor Goal (LTG) Pt will gait train at least 1400 feet in 6 minutes without AD to decrease fall risk by . LTG Duration 8 weeks 3 Detention Goal (LTG) Pt will perform HEP with I including postural, cervical, VOR, balance, and relaxation exercises to improve dizziness and balance by 04/28/21. LTG Duration 8 weeks 2 Detention Goal (LTG) Pt will perform WNLs on FGA to decrease fall risk by 04/28/21 . LTG Duration 8 weeks 1 Detention Goal (LTG) Pt will deny falls to decrease risk of injury by 04/28/21. LTG Duration 8 weeks Assessment Summary Assessment Pt arrives with , Glory. Pt has concerns about his posture, asks PT if it is okay for him to give blood given his dizziness, con't to report rotatory symptoms. Pt has one beat torsional nystagmus with roll test from right side lying to the left and also dizziness and two beat rotatory nystagmus moving from sitting to left side lying. PT treats pt with modified Carrie and Vanessa. Extensive education to pt and about his postural and vestibular presentation, benefits of further VOR and visual motor work-up, treat for BPPV as needed. Physical Therapy Plan Frequency and Duration Frequency of Treatment 2x/Week Duration of Treatment 8 weeks Plan of Care Start Date 02/26/21 Plan of Care End Date 04/30/21 Therapeutic Interventions Therapeutic Interventions Balance Training,Canalithic Repositioning,Coordination Training,Gait Training,Home Exercise Program,Joint Mobilizations,Manual Therapy, Neuromuscular Re-education, Patient/Caregiver Education, Self-Care/Home Management,Soft Tissue Mobilization,Taping, Therapeutic Activities, Therapeutic Exercises, Vestibular Rehabilitation Modalities Cold Pack/Ice Massage,Hot Packs Next Visit Focus/Plan Next Note Type Treatment Note Next Visit Plan Postural training, use of racquet ball, consider VOR testing and visual motor testing
--- NOTE | 2021-03-06 14:30 | PT.OTN ---
Current Diagnoses Benign neoplasm of cranial nerves (03/06/21) Dizziness and giddiness (03/06/21) Other reduced mobility (03/06/21) Physical Therapy Treatment Note PT-OP-A Visit Information Start: 02/26/21 07:29 Freq: Status: Active Protocol: Document 03/06/21 13:41 MB (Rec: 03/06/21 14:15 MB [id number]) Out-Patient Physical Therapy Visit Information Visit Information Visit Type Treatment Note Visit Note [facility] [place], Medicare Advantage Visit Start Time 13:41 Visit Stop Time 14:21 Total Visit Minutes 40 Visit Number 3 PT-OP-B Current Condition Start: 02/26/21 07:29 Freq: Status: Active Protocol: Document 02/26/21 14:31 MB (Rec: 02/26/21 14:49 MB [id number]) Current Condition History of Current Condition Onset Date 12/12/20 Current Complaints Balance issues come and go History of Current Condition Pt states that after his second COVID shot, he had a lot of dizziness and he was horizontal for two days. He had worst dizziness and nausea with eyes opened. He vomited a lot. Pt saw a neurologist. He was concerned about PD and the neurologist said it is not PD. He was told to keep doing the Carrie 3x/day which he has been doing. He was told that dizziness should go away within few months. He went to an opthamologist and was told that his vision is okay. He did see abnormal eye movement in his right eye. 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 He lost his balance nerve and auditory nerve with the surgery. 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 He had balance trouble after the surgery. Ultimately, his brain adjusted and he had normal balance and could ride a bike. He has ringing in his right ear. PMH: essential tremor, removed right acoustic neuroma, B foot numbness Pt states that he is getting better. He did have falls and injured his left shoulder. He always fell to the left. Pt reports left shoulder pain rated 3-4/10. Pt reports 5 falls in the last year and three in the last three months . He is just now feeling comfortable driving in town. Pt reports numbness and tingling in bottom of his feet only, vision changes with reports that his vision bounces around and roaring/ ringing in the ears, performance of sit-ups, chronic hearing change. Pt denies ear pressure, history of concussion or whiplash, weakness, sinus/allergy issues , trouble swallowing, recent overhead lifting, B12 deficiency, eye pressure changes, chirpractor treatment , TMJ/headache. Pt is afraid of falling, walking downstairs is a challenge, he cannot ride a bike and occ has to use his walking sticks. Walking in the dark is really a problem. Prior Treatments and Tests MR brain: some changes on the report but the impression says NAD X-ray left shoulder: downsloping acromion likely impinging the rotator cuff tendons, if clinically indicated, MRI may be helpful. Treatment Goals Patient/Caregiver Goals To improve balance and confidence with walking. PT-OP-C Subjective Start: 02/26/21 07:29 Freq: Status: Active Protocol: Document 03/06/21 13:41 MB (Rec: 03/06/21 14:15 MB [id number]) OP-PT Subjective Patient Comments Patient Comments Pt asks about exercises to do at home. PT-OP-D Balance Start: 02/26/21 07:29 Freq: Status: Active Protocol: Document 02/26/21 14:31 MB (Rec: 02/26/21 16:03 MB [id number]) OP-PT Balance Assessment Sitting Balance Static Sitting Balance Ability Fair Dynamic Sitting Balance Ability Fair Sitting Balance Comments UE support for static and dynamic sitting balance Standing Balance Static Standing Balance Ability Fair Dynamic Standing Balance Ability Fair Standing Balance Comments Pt occ reaches for chair d/t LOB Mullins Fall Scale Copyright Permission PT-OP-H Neuro Start: 02/26/21 07:29 Freq: Status: Active Protocol: Document 02/26/21 14:31 MB (Rec: 02/26/21 16:03 MB [id number]) Sensation Evaluation Comments Summary Comments Pt reports chronic change in sensation both feet Coordination Evaluation Comments Coordination Comments B finger to nose altered d/t B tremor, more noticeable in right UE today Vital Signs Comments Vital Signs Comments Positive orthostatic assessment with BP and HR in LUE: supine 168/81, 73; standing 150/80, 76; standing 30 sec 140/76, 69; standing 1 min 30 sec 144/77, 70. Pt reports spinning type dizziness upon standing PT-OP-J Posture/Palpation/Skin Start: 02/26/21 07:29 Freq: Status: Active Protocol: Document 02/26/21 14:31 MB (Rec: 02/26/21 16:03 MB [id number]) Posture Evaluation Comments Posture Comments Standing with shoes donned: forward head with left tragus 2 1/2 inch in front of left AC joint, rounded left shoulder, decreased cervical and thoracic curvature, increased convexity right thoracic spine , right shoulder lower than the left with some scapular positioning differences, anterior tilt pelvis, head rests in mild right rotation and left SB PT-OP-K Range of Motion Start: 02/26/21 07:29 Freq: Status: Active Protocol: Document 02/26/21 14:31 MB (Rec: 02/26/21 16:03 MB [id number]) Cervical Spine Range of Motion Cervical Spine Active Testing Position Standing Flexion 40 Extension 30 Rotation Left 20 Rotation Right 35 Comments Increased tension right SCM and scalenes Shoulder Goniometric Range of Motion Shoulder ROM Limitations Comments B shoulder flexion and abduction grossly normal and pt reports pain 3-4/10 left shoulder PT-OP-M Strength Start: 02/26/21 07:29 Freq: Status: Active Protocol: Document 02/26/21 14:31 MB (Rec: 02/26/21 16:03 MB [id number]) Shoulder Strength Shoulder Manual Muscle Testing Left Comments NT in setting of injury and painful active movement Right Flexion 5 Normal Abduction (C5) 5 Normal Elbow/Forearm Strength Elbow and Forearm Manual Muscle Testing Left Comments NT in setting of left shoulder injury Right Flexion (C6) 5 Normal Extension (C7) 5 Normal Pronation 5 Normal Supination 5 Normal Wrist Strength Wrist Manual Muscle Testing Left Flexion (C7) 5 Normal Extension (C6) 4 Good Right Flexion (C7) 5 Normal Extension (C6) 5 Normal PT-OP-O Vestibular Start: 02/26/21 07:29 Freq: Status: Active Protocol: Document 02/26/21 14:31 MB (Rec: 02/26/21 16:03 MB [id number]) Vestibular Assessment Visual Testing Smooth Pursuits Horizontal Normal Smooth Pursuits Vertical Normal Gaze Evoked Nystagmus With Fixation Negative Convergence Test WNL Spontaneous Nystagmus Negative Positional Testing [place]-Hallpike Negative Left,Negative Right Rolling Test Negative Left,Negative Right Comments Vestibular Comments Pt reports dizziness with Roll Test moving from right to left and may have had one beat nystagmus but very difficult to see if it was PT-OP-Q Treatments Start: 02/26/21 07:29 Freq: Status: Active Protocol: Document 03/06/21 13:41 MB (Rec: 03/06/21 14:15 MB [id number]) Neuro Re-Education Treatment Vestibular Rehabilitation DVA testing and exercises Comments Pt has 6 line difference with reading eye chart with head still and head moving right and left and up and down Exercises: letter a provided and pt ed and practices 3 exercises for home: letter still with head turns, pt holding card with both hands; letter moving, head still with both hands holding card, card and hands moving opposite. Next, ed pt in up and down with these exercises Self-Care/Home Management Treatment Education Other Education Reviewed inner ear anatomy using head of acquisitions, provided APTA patient education handouts about the VOR, why see a PT for dizziness and how the balance system works and ed pt and answered questions PT-OP-T Assessment and Plan Start: 02/26/21 07:29 Freq: Status: Active Protocol: Document 03/06/21 13:41 MB (Rec: 03/06/21 14:15 MB [id number]) Physical Therapy Assessment Rehab Potential Rehabilitation Potential Fair Evaluation Complexity Number of Personal Factors/Comorbidities 1-2 Number of Body Systems Impaired 3 Clinical Presentation at Evaluation Evolving Impairments Impairments Activity Tolerance,Balance, Coordination,Functional Activities,Functional Mobility ,Gait,Pain,Posture,ROM, Sensation,Soft Tissue Mobility ,Strength,Vestibular Other Concerns Fall Risk Yes Goals 4 Mcc Goal (LTG) Pt will gait train at least 1400 feet in 6 minutes without AD to decrease fall risk by . LTG Duration 8 weeks 3 Mcc Goal (LTG) Pt will perform HEP with I including postural, cervical, VOR, balance, and relaxation exercises to improve dizziness and balance by 04/28/21. LTG Duration 8 weeks 2 Mcc Goal (LTG) Pt will perform WNLs on FGA to decrease fall risk by 04/28/21 . LTG Duration 8 weeks 1 Mcc Goal (LTG) Pt will deny falls to decrease risk of injury by 04/28/21. LTG Duration 8 weeks Assessment Summary Assessment Initiated VOR testing today and exercises. Pt has 6 line difference between reading eye chart with head still and reading it with vertical and horizontal head turns. 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 Testing and exercises are very challenging for pt. Pt presents with unsteadiness with gait, has walking sticks, unsteadiness is similar after VOR exercises and pt does state that he feels light-headed. Provided water and chair for pt to rest in. Physical Therapy Plan Frequency and Duration Frequency of Treatment 2x/Week Duration of Treatment 8 weeks Plan of Care Start Date 02/26/21 Plan of Care End Date 04/30/21 Therapeutic Interventions Therapeutic Interventions Balance Training,Canalithic Repositioning,Coordination Training,Gait Training,Home Exercise Program,Joint Mobilizations,Manual Therapy, Neuromuscular Re-education, Patient/Caregiver Education, Self-Care/Home Management,Soft Tissue Mobilization,Taping, Therapeutic Activities, Therapeutic Exercises, Vestibular Rehabilitation Modalities Cold Pack/Ice Massage,Hot Packs Next Visit Focus/Plan Next Note Type Treatment Note Next Visit Plan Postural training, use of racquet ball, balance exercises
--- NOTE | 2021-03-08 10:31 | PT.OTN ---
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) Dizziness and giddiness (03/08/21) Other reduced mobility (03/08/21) Physical Therapy Treatment Note PT-OP-A Visit Information Start: 02/26/21 07:29 Freq: Status: Active Protocol: Document 03/08/21 09:45 MB (Rec: 03/08/21 10:26 MB [id number]) Out-Patient Physical Therapy Visit Information Visit Information Visit Type Treatment Note Visit Note [facility] [place], Medicare Advantage Visit Start Time 09:45 Visit Stop Time 10:28 Total Visit Minutes 43 Visit Number 4 PT-OP-B Current Condition Start: 02/26/21 07:29 Freq: Status: Active Protocol: Document 02/26/21 14:31 MB (Rec: 02/26/21 14:49 MB [id number]) Current Condition History of Current Condition Onset Date 12/12/20 Current Complaints Balance issues come and go History of Current Condition Pt states that after his second COVID shot, he had a lot of dizziness and he was horizontal for two days. He had worst dizziness and nausea with eyes opened. He vomited a lot. Pt saw a neurologist. He was concerned about PD and the neurologist said it is not PD. He was told to keep doing the Carrie 3x/day which he has been doing. He was told that dizziness should go away within few months. He went to an opthamologist and was told that his vision is okay. He did see abnormal eye movement in his right eye. 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 He lost his balance nerve and auditory nerve with the surgery. 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 He had balance trouble after the surgery. Ultimately, his brain adjusted and he had normal balance and could ride a bike. He has ringing in his right ear. PMH: essential tremor, removed right acoustic neuroma, B foot numbness Pt states that he is getting better. He did have falls and injured his left shoulder. He always fell to the left. Pt reports left shoulder pain rated 3-4/10. Pt reports 5 falls in the last year and three in the last three months . He is just now feeling comfortable driving in town. Pt reports numbness and tingling in bottom of his feet only, vision changes with reports that his vision bounces around and roaring/ ringing in the ears, performance of sit-ups, chronic hearing change. Pt denies ear pressure, history of concussion or whiplash, weakness, sinus/allergy issues , trouble swallowing, recent overhead lifting, B12 deficiency, eye pressure changes, chirpractor treatment , TMJ/headache. Pt is afraid of falling, walking downstairs is a challenge, he cannot ride a bike and occ has to use his walking sticks. Walking in the dark is really a problem. Prior Treatments and Tests MR brain: some changes on the report but the impression says NAD X-ray left shoulder: downsloping acromion likely impinging the rotator cuff tendons, if clinically indicated, MRI may be helpful. Treatment Goals Patient/Caregiver Goals To improve balance and confidence with walking. PT-OP-C Subjective Start: 02/26/21 07:29 Freq: Status: Active Protocol: Document 03/08/21 09:45 MB (Rec: 03/08/21 10:26 MB [id number]) OP-PT Subjective Patient Comments Patient Comments Pt has a few questions. He does leg lifts lying today and asks about his neck. PT-OP-D Balance Start: 02/26/21 07:29 Freq: Status: Active Protocol: Document 02/26/21 14:31 MB (Rec: 02/26/21 16:03 MB [id number]) OP-PT Balance Assessment Sitting Balance Static Sitting Balance Ability Fair Dynamic Sitting Balance Ability Fair Sitting Balance Comments UE support for static and dynamic sitting balance Standing Balance Static Standing Balance Ability Fair Dynamic Standing Balance Ability Fair Standing Balance Comments Pt occ reaches for chair d/t LOB Mullins Fall Scale Copyright Permission PT-OP-H Neuro Start: 02/26/21 07:29 Freq: Status: Active Protocol: Document 02/26/21 14:31 MB (Rec: 02/26/21 16:03 MB [id number]) Sensation Evaluation Comments Summary Comments Pt reports chronic change in sensation both feet Coordination Evaluation Comments Coordination Comments B finger to nose altered d/t B tremor, more noticeable in right UE today Vital Signs Comments Vital Signs Comments Positive orthostatic assessment with BP and HR in LUE: supine 168/81, 73; standing 150/80, 76; standing 30 sec 140/76, 69; standing 1 min 30 sec 144/77, 70. Pt reports spinning type dizziness upon standing PT-OP-J Posture/Palpation/Skin Start: 02/26/21 07:29 Freq: Status: Active Protocol: Document 02/26/21 14:31 MB (Rec: 02/26/21 16:03 MB [id number]) Posture Evaluation Comments Posture Comments Standing with shoes donned: forward head with left tragus 2 1/2 inch in front of left AC joint, rounded left shoulder, decreased cervical and thoracic curvature, increased convexity right thoracic spine , right shoulder lower than the left with some scapular positioning differences, anterior tilt pelvis, head rests in mild right rotation and left SB PT-OP-K Range of Motion Start: 02/26/21 07:29 Freq: Status: Active Protocol: Document 02/26/21 14:31 MB (Rec: 02/26/21 16:03 MB [id number]) Cervical Spine Range of Motion Cervical Spine Active Testing Position Standing Flexion 40 Extension 30 Rotation Left 20 Rotation Right 35 Comments Increased tension right SCM and scalenes Shoulder Goniometric Range of Motion Shoulder ROM Limitations Comments B shoulder flexion and abduction grossly normal and pt reports pain 3-4/10 left shoulder PT-OP-M Strength Start: 02/26/21 07:29 Freq: Status: Active Protocol: Document 02/26/21 14:31 MB (Rec: 02/26/21 16:03 MB [id number]) Shoulder Strength Shoulder Manual Muscle Testing Left Comments NT in setting of injury and painful active movement Right Flexion 5 Normal Abduction (C5) 5 Normal Elbow/Forearm Strength Elbow and Forearm Manual Muscle Testing Left Comments NT in setting of left shoulder injury Right Flexion (C6) 5 Normal Extension (C7) 5 Normal Pronation 5 Normal Supination 5 Normal Wrist Strength Wrist Manual Muscle Testing Left Flexion (C7) 5 Normal Extension (C6) 4 Good Right Flexion (C7) 5 Normal Extension (C6) 5 Normal PT-OP-O Vestibular Start: 02/26/21 07:29 Freq: Status: Active Protocol: Document 02/26/21 14:31 MB (Rec: 02/26/21 16:03 MB [id number]) Vestibular Assessment Visual Testing Smooth Pursuits Horizontal Normal Smooth Pursuits Vertical Normal Gaze Evoked Nystagmus With Fixation Negative Convergence Test WNL Spontaneous Nystagmus Negative Positional Testing [place]-Hallpike Negative Left,Negative Right Rolling Test Negative Left,Negative Right Comments Vestibular Comments Pt reports dizziness with Roll Test moving from right to left and may have had one beat nystagmus but very difficult to see if it was PT-OP-Q Treatments Start: 02/26/21 07:29 Freq: Status: Active Protocol: Document 03/08/21 09:45 MB (Rec: 03/08/21 10:26 MB [id number]) Therapeutic Exercises Supine Exercises Core progression Supine Exercise Name Abdominal drawing in, lumbar rotation, HS, knee fall out, mini march Side bilateral Comments Lots of ed and practice with abd draw in, then 10 reps all exercises Neuro Re-Education Treatment Vestibular Rehabilitation DVA testing and exercises Comments Pt demonstrates all letter a exercises with horizontal and vertical movements and performs well. Started in setting and pt presents with forward head posture and having to extend neck. Moved to standing against the wall and he performs better Added convergence with letter a. Self-Care/Home Management Treatment Education Other Education Proper position for core exercises with head and neck support, proper sleeping position, need to change core exercises to help neck, COR and how cervical muscles contribute to dizziness, benefits of Buteyko/nasal breathing PT-OP-T Assessment and Plan Start: 02/26/21 07:29 Freq: Status: Active Protocol: Document 03/08/21 09:45 MB (Rec: 03/08/21 10:26 MB [id number]) Physical Therapy Assessment Rehab Potential Rehabilitation Potential Fair Evaluation Complexity Number of Personal Factors/Comorbidities 1-2 Number of Body Systems Impaired 3 Clinical Presentation at Evaluation Evolving Impairments Impairments Activity Tolerance,Balance, Coordination,Functional Activities,Functional Mobility ,Gait,Pain,Posture,ROM, Sensation,Soft Tissue Mobility ,Strength,Vestibular Other Concerns Fall Risk Yes Goals 4 [employer] Goal (LTG) Pt will gait train at least 1400 feet in 6 minutes without AD to decrease fall risk by . LTG Duration 8 weeks 3 Mcfp Goal (LTG) Pt will perform HEP with I including postural, cervical, VOR, balance, and relaxation exercises to improve dizziness and balance by 04/28/21. LTG Duration 8 weeks 2 Mcfp Goal (LTG) Pt will perform WNLs on FGA to decrease fall risk by 04/28/21 . LTG Duration 8 weeks 1 Mcfp Goal (LTG) Pt will deny falls to decrease risk of injury by 04/28/21. LTG Duration 8 weeks Assessment Summary Assessment Education to pt and today , core education and training with lots of cues and practice and re-training on VOR and visual motor exercises with cues and in standing. Pt does well with core training and will con't to work on anterior neck relaxation. Physical Therapy Plan Frequency and Duration Frequency of Treatment 2x/Week Duration of Treatment 8 weeks Plan of Care Start Date 02/26/21 Plan of Care End Date 04/30/21 Therapeutic Interventions Therapeutic Interventions Balance Training,Canalithic Repositioning,Coordination Training,Gait Training,Home Exercise Program,Joint Mobilizations,Manual Therapy, Neuromuscular Re-education, Patient/Caregiver Education, Self-Care/Home Management,Soft Tissue Mobilization,Taping, Therapeutic Activities, Therapeutic Exercises, Vestibular Rehabilitation Modalities Cold Pack/Ice Massage,Hot Packs Next Visit Focus/Plan Next Note Type Treatment Note Next Visit Plan Postural training, use of racquet ball, balance exercises, intrascpaular and shoulder ER strengthening, multifidi strengthening with band in standing, possibly self-massage SCM, Buteyko breathing in hook lying
--- NOTE | 2021-03-14 15:43 | PT.OTN ---
Current Diagnoses Benign neoplasm of cranial nerves (03/14/21) Dizziness and giddiness (03/14/21) Other reduced mobility (03/14/21) Physical Therapy Treatment Note PT-OP-A Visit Information Start: 02/26/21 07:29 Freq: Status: Active Protocol: Document 03/14/21 13:47 MB (Rec: 03/14/21 14:30 MB [id number]) Out-Patient Physical Therapy Visit Information Visit Information Visit Type Treatment Note Visit Note [facility] [place], Medicare Advantage Visit Start Time 13:47 Visit Stop Time 14:30 Total Visit Minutes 43 Visit Number 5 PT-OP-B Current Condition Start: 02/26/21 07:29 Freq: Status: Active Protocol: Document 02/26/21 14:31 MB (Rec: 02/26/21 14:49 MB [id number]) Current Condition History of Current Condition Onset Date 12/12/20 Current Complaints Balance issues come and go History of Current Condition Pt states that after his second COVID shot, he had a lot of dizziness and he was horizontal for two days. He had worst dizziness and nausea with eyes opened. He vomited a lot. Pt saw a neurologist. He was concerned about PD and the neurologist said it is not PD. He was told to keep doing the Carrie 3x/day which he has been doing. He was told that dizziness should go away within few months. He went to an opthamologist and was told that his vision is okay. He did see abnormal eye movement in his right eye. 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 He lost his balance nerve and auditory nerve with the surgery. 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 He had balance trouble after the surgery. Ultimately, his brain adjusted and he had normal balance and could ride a bike. He has ringing in his right ear. PMH: essential tremor, removed right acoustic neuroma, B foot numbness Pt states that he is getting better. He did have falls and injured his left shoulder. He always fell to the left. Pt reports left shoulder pain rated 3-4/10. Pt reports 5 falls in the last year and three in the last three months . He is just now feeling comfortable driving in town. Pt reports numbness and tingling in bottom of his feet only, vision changes with reports that his vision bounces around and roaring/ ringing in the ears, performance of sit-ups, chronic hearing change. Pt denies ear pressure, history of concussion or whiplash, weakness, sinus/allergy issues , trouble swallowing, recent overhead lifting, B12 deficiency, eye pressure changes, chirpractor treatment , TMJ/headache. Pt is afraid of falling, walking downstairs is a challenge, he cannot ride a bike and occ has to use his walking sticks. Walking in the dark is really a problem. Prior Treatments and Tests MR brain: some changes on the report but the impression says NAD X-ray left shoulder: downsloping acromion likely impinging the rotator cuff tendons, if clinically indicated, MRI may be helpful. Treatment Goals Patient/Caregiver Goals To improve balance and confidence with walking. PT-OP-C Subjective Start: 02/26/21 07:29 Freq: Status: Active Protocol: Document 03/14/21 13:47 MB (Rec: 03/14/21 14:30 MB [id number]) OP-PT Subjective Patient Comments Patient Comments Pt states that he feels better . He has stopped sit-ups and leg lifts. He is doing push-up . Occ, he gets dizzy sensation with getting up. PT-OP-D Balance Start: 02/26/21 07:29 Freq: Status: Active Protocol: Document 02/26/21 14:31 MB (Rec: 02/26/21 16:03 MB [id number]) OP-PT Balance Assessment Sitting Balance Static Sitting Balance Ability Fair Dynamic Sitting Balance Ability Fair Sitting Balance Comments UE support for static and dynamic sitting balance Standing Balance Static Standing Balance Ability Fair Dynamic Standing Balance Ability Fair Standing Balance Comments Pt occ reaches for chair d/t LOB Mullins Fall Scale Copyright Permission PT-OP-H Neuro Start: 02/26/21 07:29 Freq: Status: Active Protocol: Document 02/26/21 14:31 MB (Rec: 02/26/21 16:03 MB [id number]) Sensation Evaluation Comments Summary Comments Pt reports chronic change in sensation both feet Coordination Evaluation Comments Coordination Comments B finger to nose altered d/t B tremor, more noticeable in right UE today Vital Signs Comments Vital Signs Comments Positive orthostatic assessment with BP and HR in LUE: supine 168/81, 73; standing 150/80, 76; standing 30 sec 140/76, 69; standing 1 min 30 sec 144/77, 70. Pt reports spinning type dizziness upon standing PT-OP-J Posture/Palpation/Skin Start: 02/26/21 07:29 Freq: Status: Active Protocol: Document 02/26/21 14:31 MB (Rec: 02/26/21 16:03 MB [id number]) Posture Evaluation Comments Posture Comments Standing with shoes donned: forward head with left tragus 2 1/2 inch in front of left AC joint, rounded left shoulder, decreased cervical and thoracic curvature, increased convexity right thoracic spine , right shoulder lower than the left with some scapular positioning differences, anterior tilt pelvis, head rests in mild right rotation and left SB PT-OP-K Range of Motion Start: 02/26/21 07:29 Freq: Status: Active Protocol: Document 02/26/21 14:31 MB (Rec: 02/26/21 16:03 MB [id number]) Cervical Spine Range of Motion Cervical Spine Active Testing Position Standing Flexion 40 Extension 30 Rotation Left 20 Rotation Right 35 Comments Increased tension right SCM and scalenes Shoulder Goniometric Range of Motion Shoulder ROM Limitations Comments B shoulder flexion and abduction grossly normal and pt reports pain 3-4/10 left shoulder PT-OP-M Strength Start: 02/26/21 07:29 Freq: Status: Active Protocol: Document 02/26/21 14:31 MB (Rec: 02/26/21 16:03 MB [id number]) Shoulder Strength Shoulder Manual Muscle Testing Left Comments NT in setting of injury and painful active movement Right Flexion 5 Normal Abduction (C5) 5 Normal Elbow/Forearm Strength Elbow and Forearm Manual Muscle Testing Left Comments NT in setting of left shoulder injury Right Flexion (C6) 5 Normal Extension (C7) 5 Normal Pronation 5 Normal Supination 5 Normal Wrist Strength Wrist Manual Muscle Testing Left Flexion (C7) 5 Normal Extension (C6) 4 Good Right Flexion (C7) 5 Normal Extension (C6) 5 Normal PT-OP-O Vestibular Start: 02/26/21 07:29 Freq: Status: Active Protocol: Document 02/26/21 14:31 MB (Rec: 02/26/21 16:03 MB [id number]) Vestibular Assessment Visual Testing Smooth Pursuits Horizontal Normal Smooth Pursuits Vertical Normal Gaze Evoked Nystagmus With Fixation Negative Convergence Test WNL Spontaneous Nystagmus Negative Positional Testing [place]-Hallpike Negative Left,Negative Right Rolling Test Negative Left,Negative Right Comments Vestibular Comments Pt reports dizziness with Roll Test moving from right to left and may have had one beat nystagmus but very difficult to see if it was PT-OP-Q Treatments Start: 02/26/21 07:29 Freq: Status: Active Protocol: Document 03/14/21 13:47 MB (Rec: 03/14/21 15:40 MB [id number]) Therapeutic Exercises Sidelying Exercises Open book with elbows bent and rib breathing Side bilateral Comments Several reps slowly both sides with rib breathing Other Exercises Push-up posture Comments Ed in chin tuck, scapular retraction and to slow down, several reps Self-Care/Home Management Treatment Education Other Education Talk with provider and about electrolytes and increased non-caffeinated fluid intake on the days that he swims and works outside, postural changes to include relaxing neck and keeping it loose, head and neck support with abdominal exercises, handouts and education about BPPV, anatomy, likelihood of recurrence given his spinal posture and neck stiffness Canalithic Repositioning BPPV Treatment Other Comments Positive dizziness and no nystagmus with B Roll Test. Pt has 2 slow beat torsional nystagmus with left [place]- Hallpike and treated x2 PT-OP-T Assessment and Plan Start: 02/26/21 07:29 Freq: Status: Active Protocol: Document 03/14/21 13:47 MB (Rec: 03/14/21 14:30 MB [id number]) Physical Therapy Assessment Rehab Potential Rehabilitation Potential Fair Evaluation Complexity Number of Personal Factors/Comorbidities 1-2 Number of Body Systems Impaired 3 Clinical Presentation at Evaluation Evolving Impairments Impairments Activity Tolerance,Balance, Coordination,Functional Activities,Functional Mobility ,Gait,Pain,Posture,ROM, Sensation,Soft Tissue Mobility ,Strength,Vestibular Other Concerns Fall Risk Yes Goals 4 [employer] Goal (LTG) Pt will gait train at least 1400 feet in 6 minutes without AD to decrease fall risk by . LTG Duration 8 weeks 3 Alf Goal (LTG) Pt will perform HEP with I including postural, cervical, VOR, balance, and relaxation exercises to improve dizziness and balance by 04/28/21. LTG Duration 8 weeks 2 [employer] Goal (LTG) Pt will perform WNLs on FGA to decrease fall risk by 04/28/21 . LTG Duration 8 weeks 1 Alf Goal (LTG) Pt will deny falls to decrease risk of injury by 04/28/21. LTG Duration 8 weeks Assessment Summary Assessment Pt presents with dizziness and transient nystagmus with lying down on the left for open book exercise today and so re-checked for BPPV and treated. Ed pt in pect stretch with open book and will need to give handout in future treatment. Ed pt in self-care as well. Pt's presentation is complicated and includes cervicogenic, BPPV, and vestibular hypofunction as well as balance and postural changes. His presentation is complicated. Con't per plan. Physical Therapy Plan Frequency and Duration Frequency of Treatment 2x/Week Duration of Treatment 8 weeks Plan of Care Start Date 02/26/21 Plan of Care End Date 04/30/21 Therapeutic Interventions Therapeutic Interventions Balance Training,Canalithic Repositioning,Coordination Training,Gait Training,Home Exercise Program,Joint Mobilizations,Manual Therapy, Neuromuscular Re-education, Patient/Caregiver Education, Self-Care/Home Management,Soft Tissue Mobilization,Taping, Therapeutic Activities, Therapeutic Exercises, Vestibular Rehabilitation Modalities Cold Pack/Ice Massage,Hot Packs Next Visit Focus/Plan Next Note Type Treatment Note Next Visit Plan Provide handout for open book with elbows bent. Postural training, use of racquet ball, balance exercises, intrascpaular and shoulder ER strengthening, multifidi strengthening with band in standing, possibly self- massage SCM, Buteyko breathing in hook lying
--- NOTE | 2021-03-19 14:03 | PT.OTN ---
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) Dizziness and giddiness (03/19/21) Other reduced mobility (03/19/21) Physical Therapy Treatment Note PT-OP-A Visit Information Start: 02/26/21 07:29 Freq: Status: Active Protocol: Document 03/19/21 13:02 MB (Rec: 03/19/21 13:51 MB [id number]) Out-Patient Physical Therapy Visit Information Visit Information Visit Type Treatment Note Visit Note [facility] [place], Medicare Advantage Visit Start Time 13:02 Visit Stop Time 13:45 Total Visit Minutes 43 Visit Number 6 PT-OP-B Current Condition Start: 02/26/21 07:29 Freq: Status: Active Protocol: Document 02/26/21 14:31 MB (Rec: 02/26/21 14:49 MB [id number]) Current Condition History of Current Condition Onset Date 12/12/20 Current Complaints Balance issues come and go History of Current Condition Pt states that after his second COVID shot, he had a lot of dizziness and he was horizontal for two days. He had worst dizziness and nausea with eyes opened. He vomited a lot. Pt saw a neurologist. He was concerned about PD and the neurologist said it is not PD. He was told to keep doing the Carrie 3x/day which he has been doing. He was told that dizziness should go away within few months. He went to an opthamologist and was told that his vision is okay. He did see abnormal eye movement in his right eye. 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 He lost his balance nerve and auditory nerve with the surgery. 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 He had balance trouble after the surgery. Ultimately, his brain adjusted and he had normal balance and could ride a bike. He has ringing in his right ear. PMH: essential tremor, removed right acoustic neuroma, B foot numbness Pt states that he is getting better. He did have falls and injured his left shoulder. He always fell to the left. Pt reports left shoulder pain rated 3-4/10. Pt reports 5 falls in the last year and three in the last three months . He is just now feeling comfortable driving in town. Pt reports numbness and tingling in bottom of his feet only, vision changes with reports that his vision bounces around and roaring/ ringing in the ears, performance of sit-ups, chronic hearing change. Pt denies ear pressure, history of concussion or whiplash, weakness, sinus/allergy issues , trouble swallowing, recent overhead lifting, B12 deficiency, eye pressure changes, chirpractor treatment , TMJ/headache. Pt is afraid of falling, walking downstairs is a challenge, he cannot ride a bike and occ has to use his walking sticks. Walking in the dark is really a problem. Prior Treatments and Tests MR brain: some changes on the report but the impression says NAD X-ray left shoulder: downsloping acromion likely impinging the rotator cuff tendons, if clinically indicated, MRI may be helpful. Treatment Goals Patient/Caregiver Goals To improve balance and confidence with walking. PT-OP-C Subjective Start: 02/26/21 07:29 Freq: Status: Active Protocol: Document 03/19/21 13:02 MB (Rec: 03/19/21 13:51 MB [id number]) OP-PT Subjective Patient Comments Patient Comments Pt states that he drove today. He just got out of the pool. PT-OP-D Balance Start: 02/26/21 07:29 Freq: Status: Active Protocol: Document 02/26/21 14:31 MB (Rec: 02/26/21 16:03 MB [id number]) OP-PT Balance Assessment Sitting Balance Static Sitting Balance Ability Fair Dynamic Sitting Balance Ability Fair Sitting Balance Comments UE support for static and dynamic sitting balance Standing Balance Static Standing Balance Ability Fair Dynamic Standing Balance Ability Fair Standing Balance Comments Pt occ reaches for chair d/t LOB Mullins Fall Scale Copyright Permission PT-OP-H Neuro Start: 02/26/21 07:29 Freq: Status: Active Protocol: Document 02/26/21 14:31 MB (Rec: 02/26/21 16:03 MB [id number]) Sensation Evaluation Comments Summary Comments Pt reports chronic change in sensation both feet Coordination Evaluation Comments Coordination Comments B finger to nose altered d/t B tremor, more noticeable in right UE today Vital Signs Comments Vital Signs Comments Positive orthostatic assessment with BP and HR in LUE: supine 168/81, 73; standing 150/80, 76; standing 30 sec 140/76, 69; standing 1 min 30 sec 144/77, 70. Pt reports spinning type dizziness upon standing PT-OP-J Posture/Palpation/Skin Start: 02/26/21 07:29 Freq: Status: Active Protocol: Document 02/26/21 14:31 MB (Rec: 02/26/21 16:03 MB [id number]) Posture Evaluation Comments Posture Comments Standing with shoes donned: forward head with left tragus 2 1/2 inch in front of left AC joint, rounded left shoulder, decreased cervical and thoracic curvature, increased convexity right thoracic spine , right shoulder lower than the left with some scapular positioning differences, anterior tilt pelvis, head rests in mild right rotation and left SB PT-OP-K Range of Motion Start: 02/26/21 07:29 Freq: Status: Active Protocol: Document 02/26/21 14:31 MB (Rec: 02/26/21 16:03 MB [id number]) Cervical Spine Range of Motion Cervical Spine Active Testing Position Standing Flexion 40 Extension 30 Rotation Left 20 Rotation Right 35 Comments Increased tension right SCM and scalenes Shoulder Goniometric Range of Motion Shoulder ROM Limitations Comments B shoulder flexion and abduction grossly normal and pt reports pain 3-4/10 left shoulder PT-OP-M Strength Start: 02/26/21 07:29 Freq: Status: Active Protocol: Document 02/26/21 14:31 MB (Rec: 02/26/21 16:03 MB [id number]) Shoulder Strength Shoulder Manual Muscle Testing Left Comments NT in setting of injury and painful active movement Right Flexion 5 Normal Abduction (C5) 5 Normal Elbow/Forearm Strength Elbow and Forearm Manual Muscle Testing Left Comments NT in setting of left shoulder injury Right Flexion (C6) 5 Normal Extension (C7) 5 Normal Pronation 5 Normal Supination 5 Normal Wrist Strength Wrist Manual Muscle Testing Left Flexion (C7) 5 Normal Extension (C6) 4 Good Right Flexion (C7) 5 Normal Extension (C6) 5 Normal PT-OP-O Vestibular Start: 02/26/21 07:29 Freq: Status: Active Protocol: Document 02/26/21 14:31 MB (Rec: 02/26/21 16:03 MB [id number]) Vestibular Assessment Visual Testing Smooth Pursuits Horizontal Normal Smooth Pursuits Vertical Normal Gaze Evoked Nystagmus With Fixation Negative Convergence Test WNL Spontaneous Nystagmus Negative Positional Testing [place]-Hallpike Negative Left,Negative Right Rolling Test Negative Left,Negative Right Comments Vestibular Comments Pt reports dizziness with Roll Test moving from right to left and may have had one beat nystagmus but very difficult to see if it was PT-OP-Q Treatments Start: 02/26/21 07:29 Freq: Status: Active Protocol: Document 03/19/21 13:02 MB (Rec: 03/19/21 13:51 MB [id number]) Neuro Re-Education Treatment Balance Activities FGA tasks Comments Walking with head turns, backwards walking, eyes closed with superv to CGA and then ed how to safely perform at home with one index finger on the wall FGA Comments FGA score is 18/30, indicating increased risk for falling and pt with most trouble with walking with eyes closed, tandem, head turns, and he must use rail to descend steps and must slow down to prepare to step over obstacles Self-Care/Home Management Treatment Education Other Education Ed pt in signs and symptoms of central movement problems such as festinating gait, trouble smelling, trouble swallowing, ED, orthostatic hypotension, weakness in one limb, cogwheeling. Pt states that he has had trouble smelling and with tasting. He reports trouble with slowing his gait and keeping his feet under him (pt with forward gait and weight shifting of upper body) PT-OP-T Assessment and Plan Start: 02/26/21 07:29 Freq: Status: Active Protocol: Document 03/19/21 13:02 MB (Rec: 03/19/21 13:51 MB [id number]) Physical Therapy Assessment Rehab Potential Rehabilitation Potential Fair Evaluation Complexity Number of Personal Factors/Comorbidities 1-2 Number of Body Systems Impaired 3 Clinical Presentation at Evaluation Evolving Impairments Impairments Activity Tolerance,Balance, Coordination,Functional Activities,Functional Mobility ,Gait,Pain,Posture,ROM, Sensation,Soft Tissue Mobility ,Strength,Vestibular Other Concerns Fall Risk Yes Goals 4 Detention Goal (LTG) Pt will gait train at least 1400 feet in 6 minutes without AD to decrease fall risk by . LTG Duration 8 weeks 3 Racetrack Steward Goal (LTG) Pt will perform HEP with I including postural, cervical, VOR, balance, and relaxation exercises to improve dizziness and balance by 04/28/21. LTG Duration 8 weeks 2 Detention Goal (LTG) Pt will perform WNLs on FGA to decrease fall risk by 04/28/21 . LTG Duration 8 weeks 1 Racetrack Steward Goal (LTG) Pt will deny falls to decrease risk of injury by 04/28/21. LTG Duration 8 weeks Assessment Summary Assessment FGA score reflects increased risk for falls and extensive balance training today. Pt states that he returns to neurologist on 03/07/21. He states that he had a cervical MRI and is awaiting speaking with neurologist about it as well as neuropathic symptoms in his feet. He states that that neurologist reported he did not have PD and he pulled on his arms to see if they were stiff. PT is concerned about central process given pt 's festinating gait pattern, tremor, reports of trouble smelling and testing, and overall postural presentation. Recommend a second opinion or follow-up with his current neurologist. PT will send this note to Dr. Foote, referring provider, and asked pt to sign release so that PT can send this note to his neurologist. Pt does have cervical and vestibular components to his imbalance. He will con't to benefit from PT to address these. Physical Therapy Plan Frequency and Duration Frequency of Treatment 2x/Week Duration of Treatment 8 weeks Plan of Care Start Date 02/26/21 Plan of Care End Date 04/30/21 Therapeutic Interventions Therapeutic Interventions Balance Training,Canalithic Repositioning,Coordination Training,Gait Training,Home Exercise Program,Joint Mobilizations,Manual Therapy, Neuromuscular Re-education, Patient/Caregiver Education, Self-Care/Home Management,Soft Tissue Mobilization,Taping, Therapeutic Activities, Therapeutic Exercises, Vestibular Rehabilitation Modalities Cold Pack/Ice Massage,Hot Packs Next Visit Focus/Plan Next Note Type Treatment Note Next Visit Plan Ongoing balance work. Provide handout for open book with elbows bent. Postural training, use of racquet ball, balance exercises, intrascpaular and shoulder ER strengthening, multifidi strengthening with band in standing, hip abduction and extension with band in standing, possibly self- massage SCM, Buteyko breathing in hook lying
--- NOTE | 2021-03-28 08:24 | PT.OTN ---
Current Diagnoses Benign neoplasm of cranial nerves (03/28/21) Dizziness and giddiness (03/28/21) Other reduced mobility (03/28/21) Physical Therapy Treatment Note PT-OP-A Visit Information Start: 02/26/21 07:29 Freq: Status: Active Protocol: Document 03/28/21 07:32 MB (Rec: 03/28/21 08:19 MB [id number]) Out-Patient Physical Therapy Visit Information Visit Information Visit Type Treatment Note Visit Note [facility] [place], Medicare Advantage Visit Start Time 07:32 Visit Stop Time 08:15 Total Visit Minutes 43 Visit Number 7 PT-OP-B Current Condition Start: 02/26/21 07:29 Freq: Status: Active Protocol: Document 02/26/21 14:31 MB (Rec: 02/26/21 14:49 MB [id number]) Current Condition History of Current Condition Onset Date 12/12/20 Current Complaints Balance issues come and go History of Current Condition Pt states that after his second COVID shot, he had a lot of dizziness and he was horizontal for two days. He had worst dizziness and nausea with eyes opened. He vomited a lot. Pt saw a neurologist. He was concerned about PD and the neurologist said it is not PD. He was told to keep doing the Carrie 3x/day which he has been doing. He was told that dizziness should go away within few months. He went to an opthamologist and was told that his vision is okay. He did see abnormal eye movement in his right eye. 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 He lost his balance nerve and auditory nerve with the surgery. 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 He had balance trouble after the surgery. Ultimately, his brain adjusted and he had normal balance and could ride a bike. He has ringing in his right ear. PMH: essential tremor, removed right acoustic neuroma, B foot numbness Pt states that he is getting better. He did have falls and injured his left shoulder. He always fell to the left. Pt reports left shoulder pain rated 3-4/10. Pt reports 5 falls in the last year and three in the last three months . He is just now feeling comfortable driving in town. Pt reports numbness and tingling in bottom of his feet only, vision changes with reports that his vision bounces around and roaring/ ringing in the ears, performance of sit-ups, chronic hearing change. Pt denies ear pressure, history of concussion or whiplash, weakness, sinus/allergy issues , trouble swallowing, recent overhead lifting, B12 deficiency, eye pressure changes, chirpractor treatment , TMJ/headache. Pt is afraid of falling, walking downstairs is a challenge, he cannot ride a bike and occ has to use his walking sticks. Walking in the dark is really a problem. Prior Treatments and Tests MR brain: some changes on the report but the impression says NAD X-ray left shoulder: downsloping acromion likely impinging the rotator cuff tendons, if clinically indicated, MRI may be helpful. Treatment Goals Patient/Caregiver Goals To improve balance and confidence with walking. PT-OP-C Subjective Start: 02/26/21 07:29 Freq: Status: Active Protocol: Document 03/28/21 07:32 MB (Rec: 03/28/21 08:19 MB [id number]) OP-PT Subjective Patient Comments Patient Comments Pt states that he got a MRI of his cervical spine and was told by the nurse that he might need a neurosurgery consult if he has pain in his arms. When he lies down, he gets a tense neck and vertigo symptom lying down. PT-OP-D Balance Start: 02/26/21 07:29 Freq: Status: Active Protocol: Document 02/26/21 14:31 MB (Rec: 02/26/21 16:03 MB [id number]) OP-PT Balance Assessment Sitting Balance Static Sitting Balance Ability Fair Dynamic Sitting Balance Ability Fair Sitting Balance Comments UE support for static and dynamic sitting balance Standing Balance Static Standing Balance Ability Fair Dynamic Standing Balance Ability Fair Standing Balance Comments Pt occ reaches for chair d/t LOB Mullins Fall Scale Copyright Permission PT-OP-H Neuro Start: 02/26/21 07:29 Freq: Status: Active Protocol: Document 02/26/21 14:31 MB (Rec: 02/26/21 16:03 MB [id number]) Sensation Evaluation Comments Summary Comments Pt reports chronic change in sensation both feet Coordination Evaluation Comments Coordination Comments B finger to nose altered d/t B tremor, more noticeable in right UE today Vital Signs Comments Vital Signs Comments Positive orthostatic assessment with BP and HR in LUE: supine 168/81, 73; standing 150/80, 76; standing 30 sec 140/76, 69; standing 1 min 30 sec 144/77, 70. Pt reports spinning type dizziness upon standing PT-OP-J Posture/Palpation/Skin Start: 02/26/21 07:29 Freq: Status: Active Protocol: Document 02/26/21 14:31 MB (Rec: 02/26/21 16:03 MB [id number]) Posture Evaluation Comments Posture Comments Standing with shoes donned: forward head with left tragus 2 1/2 inch in front of left AC joint, rounded left shoulder, decreased cervical and thoracic curvature, increased convexity right thoracic spine , right shoulder lower than the left with some scapular positioning differences, anterior tilt pelvis, head rests in mild right rotation and left SB PT-OP-K Range of Motion Start: 02/26/21 07:29 Freq: Status: Active Protocol: Document 02/26/21 14:31 MB (Rec: 02/26/21 16:03 MB [id number]) Cervical Spine Range of Motion Cervical Spine Active Testing Position Standing Flexion 40 Extension 30 Rotation Left 20 Rotation Right 35 Comments Increased tension right SCM and scalenes Shoulder Goniometric Range of Motion Shoulder ROM Limitations Comments B shoulder flexion and abduction grossly normal and pt reports pain 3-4/10 left shoulder PT-OP-M Strength Start: 02/26/21 07:29 Freq: Status: Active Protocol: Document 02/26/21 14:31 MB (Rec: 02/26/21 16:03 MB [id number]) Shoulder Strength Shoulder Manual Muscle Testing Left Comments NT in setting of injury and painful active movement Right Flexion 5 Normal Abduction (C5) 5 Normal Elbow/Forearm Strength Elbow and Forearm Manual Muscle Testing Left Comments NT in setting of left shoulder injury Right Flexion (C6) 5 Normal Extension (C7) 5 Normal Pronation 5 Normal Supination 5 Normal Wrist Strength Wrist Manual Muscle Testing Left Flexion (C7) 5 Normal Extension (C6) 4 Good Right Flexion (C7) 5 Normal Extension (C6) 5 Normal PT-OP-O Vestibular Start: 02/26/21 07:29 Freq: Status: Active Protocol: Document 02/26/21 14:31 MB (Rec: 02/26/21 16:03 MB [id number]) Vestibular Assessment Visual Testing Smooth Pursuits Horizontal Normal Smooth Pursuits Vertical Normal Gaze Evoked Nystagmus With Fixation Negative Convergence Test WNL Spontaneous Nystagmus Negative Positional Testing [place]-Hallpike Negative Left,Negative Right Rolling Test Negative Left,Negative Right Comments Vestibular Comments Pt reports dizziness with Roll Test moving from right to left and may have had one beat nystagmus but very difficult to see if it was PT-OP-Q Treatments Start: 02/26/21 07:29 Freq: Status: Active Protocol: Document 03/28/21 07:32 MB (Rec: 03/28/21 08:19 MB [id number]) Manual Therapy Treatment Other Other Manual Treatments Pt agrees to Counterstrain to assess and treat fascial tension and pt presents with tension in the following fascial systems: costocartilage, AINTs, LF, ALL , DPR, sympathetics, spinal medullary veins and standard lymphatic row. PT treats stacks in lymphatic venous and ALL systems and his scan improves and pt tolerates treatment well. Self-Care/Home Management Treatment Education Other Education PT and pt discuss impression on brain MRI in 01/24 and recent cervical MRI and possible central contributions to brain and neck and PT plan for this: manual work, postural training, ongoing vestibular and balance work. PT answers questions. PT-OP-T Assessment and Plan Start: 02/26/21 07:29 Freq: Status: Active Protocol: Document 03/28/21 07:32 MB (Rec: 03/28/21 08:19 MB [id number]) Physical Therapy Assessment Rehab Potential Rehabilitation Potential Fair Evaluation Complexity Number of Personal Factors/Comorbidities 1-2 Number of Body Systems Impaired 3 Clinical Presentation at Evaluation Evolving Impairments Impairments Activity Tolerance,Balance, Coordination,Functional Activities,Functional Mobility ,Gait,Pain,Posture,ROM, Sensation,Soft Tissue Mobility ,Strength,Vestibular Other Concerns Fall Risk Yes Goals 4 Public Health Educator Goal (LTG) Pt will gait train at least 1400 feet in 6 minutes without AD to decrease fall risk by . LTG Duration 8 weeks 3 Half-Way Goal (LTG) Pt will perform HEP with I including postural, cervical, VOR, balance, and relaxation exercises to improve dizziness and balance by 04/28/21. LTG Duration 8 weeks 2 Half-Way Goal (LTG) Pt will perform WNLs on FGA to decrease fall risk by 04/28/21 . LTG Duration 8 weeks 1 Public Health Educator Goal (LTG) Pt will deny falls to decrease risk of injury by 04/28/21. LTG Duration 8 weeks Assessment Summary Assessment Cervical MRI has changes and impression says that results do not correlate with his balance changes and surgical consult can be offered if he has UE pain, which he does not . PT does feel that cervical changes influence his balance and will con't to work on manual, postural, balance and strengthening interventions to assist pt with this as best as possible in setting of cervical postural changes. His thorax is also tight. He responds well to initial Counterstrain assessment today . Physical Therapy Plan Frequency and Duration Frequency of Treatment 2x/Week Duration of Treatment 8 weeks Plan of Care Start Date 02/26/21 Plan of Care End Date 04/30/21 Therapeutic Interventions Therapeutic Interventions Balance Training,Canalithic Repositioning,Coordination Training,Gait Training,Home Exercise Program,Joint Mobilizations,Manual Therapy, Neuromuscular Re-education, Patient/Caregiver Education, Self-Care/Home Management,Soft Tissue Mobilization,Taping, Therapeutic Activities, Therapeutic Exercises, Vestibular Rehabilitation Modalities Cold Pack/Ice Massage,Hot Packs Next Visit Focus/Plan Next Note Type Treatment Note Next Visit Plan Ongoing balance work and manual work. Provide handout for open book with elbows bent. Postural training, use of racquet ball, balance exercises, intrascpaular and shoulder ER strengthening, multifidi strengthening with band in standing, hip abduction and extension with band in standing, possibly self- massage SCM, Buteyko breathing in hook lying
--- NOTE | 2021-03-30 12:12 | PT.OTN ---
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) Dizziness and giddiness (03/30/21) Other reduced mobility (03/30/21) Physical Therapy Treatment Note PT-OP-A Visit Information Start: 02/26/21 07:29 Freq: Status: Active Protocol: Document 03/30/21 10:30 MB (Rec: 03/30/21 11:18 MB [id number]) Out-Patient Physical Therapy Visit Information Visit Information Visit Type Treatment Note Visit Note [facility] [place], Medicare Advantage Visit Start Time 10:30 Visit Stop Time 11:15 Total Visit Minutes 45 Visit Number 8 PT-OP-B Current Condition Start: 02/26/21 07:29 Freq: Status: Active Protocol: Document 02/26/21 14:31 MB (Rec: 02/26/21 14:49 MB [id number]) Current Condition History of Current Condition Onset Date 12/12/20 Current Complaints Balance issues come and go History of Current Condition Pt states that after his second COVID shot, he had a lot of dizziness and he was horizontal for two days. He had worst dizziness and nausea with eyes opened. He vomited a lot. Pt saw a neurologist. He was concerned about PD and the neurologist said it is not PD. He was told to keep doing the Carrie 3x/day which he has been doing. He was told that dizziness should go away within few months. He went to an opthamologist and was told that his vision is okay. He did see abnormal eye movement in his right eye. 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 He lost his balance nerve and auditory nerve with the surgery. 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 He had balance trouble after the surgery. Ultimately, his brain adjusted and he had normal balance and could ride a bike. He has ringing in his right ear. PMH: essential tremor, removed right acoustic neuroma, B foot numbness Pt states that he is getting better. He did have falls and injured his left shoulder. He always fell to the left. Pt reports left shoulder pain rated 3-4/10. Pt reports 5 falls in the last year and three in the last three months . He is just now feeling comfortable driving in town. Pt reports numbness and tingling in bottom of his feet only, vision changes with reports that his vision bounces around and roaring/ ringing in the ears, performance of sit-ups, chronic hearing change. Pt denies ear pressure, history of concussion or whiplash, weakness, sinus/allergy issues , trouble swallowing, recent overhead lifting, B12 deficiency, eye pressure changes, chirpractor treatment , TMJ/headache. Pt is afraid of falling, walking downstairs is a challenge, he cannot ride a bike and occ has to use his walking sticks. Walking in the dark is really a problem. Prior Treatments and Tests MR brain: some changes on the report but the impression says NAD X-ray left shoulder: downsloping acromion likely impinging the rotator cuff tendons, if clinically indicated, MRI may be helpful. Treatment Goals Patient/Caregiver Goals To improve balance and confidence with walking. PT-OP-C Subjective Start: 02/26/21 07:29 Freq: Status: Active Protocol: Document 03/30/21 10:30 MB (Rec: 03/30/21 11:18 MB [id number]) OP-PT Subjective Patient Comments Patient Comments Pt states that yesterday was not a good balance day. He was working outside. His hydration may have been off. He felt a little loopy. Looking up is his problem with balance with gait. PT-OP-D Balance Start: 02/26/21 07:29 Freq: Status: Active Protocol: Document 02/26/21 14:31 MB (Rec: 02/26/21 16:03 MB [id number]) OP-PT Balance Assessment Sitting Balance Static Sitting Balance Ability Fair Dynamic Sitting Balance Ability Fair Sitting Balance Comments UE support for static and dynamic sitting balance Standing Balance Static Standing Balance Ability Fair Dynamic Standing Balance Ability Fair Standing Balance Comments Pt occ reaches for chair d/t LOB Mullins Fall Scale Copyright Permission PT-OP-H Neuro Start: 02/26/21 07:29 Freq: Status: Active Protocol: Document 02/26/21 14:31 MB (Rec: 02/26/21 16:03 MB [id number]) Sensation Evaluation Comments Summary Comments Pt reports chronic change in sensation both feet Coordination Evaluation Comments Coordination Comments B finger to nose altered d/t B tremor, more noticeable in right UE today Vital Signs Comments Vital Signs Comments Positive orthostatic assessment with BP and HR in LUE: supine 168/81, 73; standing 150/80, 76; standing 30 sec 140/76, 69; standing 1 min 30 sec 144/77, 70. Pt reports spinning type dizziness upon standing PT-OP-J Posture/Palpation/Skin Start: 02/26/21 07:29 Freq: Status: Active Protocol: Document 02/26/21 14:31 MB (Rec: 02/26/21 16:03 MB [id number]) Posture Evaluation Comments Posture Comments Standing with shoes donned: forward head with left tragus 2 1/2 inch in front of left AC joint, rounded left shoulder, decreased cervical and thoracic curvature, increased convexity right thoracic spine , right shoulder lower than the left with some scapular positioning differences, anterior tilt pelvis, head rests in mild right rotation and left SB PT-OP-K Range of Motion Start: 02/26/21 07:29 Freq: Status: Active Protocol: Document 02/26/21 14:31 MB (Rec: 02/26/21 16:03 MB [id number]) Cervical Spine Range of Motion Cervical Spine Active Testing Position Standing Flexion 40 Extension 30 Rotation Left 20 Rotation Right 35 Comments Increased tension right SCM and scalenes Shoulder Goniometric Range of Motion Shoulder ROM Limitations Comments B shoulder flexion and abduction grossly normal and pt reports pain 3-4/10 left shoulder PT-OP-M Strength Start: 02/26/21 07:29 Freq: Status: Active Protocol: Document 02/26/21 14:31 MB (Rec: 02/26/21 16:03 MB [id number]) Shoulder Strength Shoulder Manual Muscle Testing Left Comments NT in setting of injury and painful active movement Right Flexion 5 Normal Abduction (C5) 5 Normal Elbow/Forearm Strength Elbow and Forearm Manual Muscle Testing Left Comments NT in setting of left shoulder injury Right Flexion (C6) 5 Normal Extension (C7) 5 Normal Pronation 5 Normal Supination 5 Normal Wrist Strength Wrist Manual Muscle Testing Left Flexion (C7) 5 Normal Extension (C6) 4 Good Right Flexion (C7) 5 Normal Extension (C6) 5 Normal PT-OP-O Vestibular Start: 02/26/21 07:29 Freq: Status: Active Protocol: Document 02/26/21 14:31 MB (Rec: 02/26/21 16:03 MB [id number]) Vestibular Assessment Visual Testing Smooth Pursuits Horizontal Normal Smooth Pursuits Vertical Normal Gaze Evoked Nystagmus With Fixation Negative Convergence Test WNL Spontaneous Nystagmus Negative Positional Testing [place]-Hallpike Negative Left,Negative Right Rolling Test Negative Left,Negative Right Comments Vestibular Comments Pt reports dizziness with Roll Test moving from right to left and may have had one beat nystagmus but very difficult to see if it was PT-OP-Q Treatments Start: 02/26/21 07:29 Freq: Status: Active Protocol: Document 03/30/21 10:30 MB (Rec: 03/30/21 11:18 MB [id number]) Manual Therapy Treatment Other Other Manual Treatments PT tapes pt's mouth before Counterstrain. Pt agrees to Counterstrain to assess and treat fascial tension and pt presents with tension in the following fascial systems: standard lymphatic row, spinal medullary venous row, dura, DPR and sympathetic nervis. PT treats stacks in lymphatic venous system and pt tolerates well. PT also treats spinal vein extension and some periosteal points. PT-OP-T Assessment and Plan Start: 02/26/21 07:29 Freq: Status: Active Protocol: Document 03/30/21 10:30 MB (Rec: 03/30/21 11:18 MB [id number]) Physical Therapy Assessment Rehab Potential Rehabilitation Potential Fair Evaluation Complexity Number of Personal Factors/Comorbidities 1-2 Number of Body Systems Impaired 3 Clinical Presentation at Evaluation Evolving Impairments Impairments Activity Tolerance,Balance, Coordination,Functional Activities,Functional Mobility ,Gait,Pain,Posture,ROM, Sensation,Soft Tissue Mobility ,Strength,Vestibular Other Concerns Fall Risk Yes Goals 4 Care Home Goal (LTG) Pt will gait train at least 1400 feet in 6 minutes without AD to decrease fall risk by . LTG Duration 8 weeks 3 Software Engineering Project Manager Goal (LTG) Pt will perform HEP with I including postural, cervical, VOR, balance, and relaxation exercises to improve dizziness and balance by 04/28/21. LTG Duration 8 weeks 2 Software Engineering Project Manager Goal (LTG) Pt will perform WNLs on FGA to decrease fall risk by 04/28/21 . LTG Duration 8 weeks 1 Software Engineering Project Manager Goal (LTG) Pt will deny falls to decrease risk of injury by 04/28/21. LTG Duration 8 weeks Assessment Summary Assessment Pt feels like he is doing better. He is more conscious about his posture, is more upright, is not using walking sticks. Even though he is better, he states that he realizes he does have trouble with his balance and posture. Today during Counterstrain, he presents with pain and decreased PROM left shoulder and he reports history of 3 falls to the left, at least one injuring left shoulder and while a MRI was ordered in the past, he never got it. He will follow-up with his PCP about that next week. PT is concerned about left-sided falling in setting of tremor with trouble signing name today on release for PT to write neurologist, balance impairment, postural changes and possible weakness left side. PT con't to have underlying central process such as PD in back of mind. He will con't to benefit from postural, vestibular and balance training and so will con't to perform these and see how he improves. His nasal breathing is better after having his mouth taped during Counterstrain. Physical Therapy Plan Frequency and Duration Frequency of Treatment 2x/Week Duration of Treatment 8 weeks Plan of Care Start Date 02/26/21 Plan of Care End Date 04/30/21 Therapeutic Interventions Therapeutic Interventions Balance Training,Canalithic Repositioning,Coordination Training,Gait Training,Home Exercise Program,Joint Mobilizations,Manual Therapy, Neuromuscular Re-education, Patient/Caregiver Education, Self-Care/Home Management,Soft Tissue Mobilization,Taping, Therapeutic Activities, Therapeutic Exercises, Vestibular Rehabilitation Modalities Cold Pack/Ice Massage,Hot Packs Next Visit Focus/Plan Next Note Type Treatment Note Next Visit Plan Open book with elbows bent and rib breathing, B[place] breathing, ongoing balance work and manual work. Postural training, use of racquet ball , balance exercises, intrascpaular and shoulder ER strengthening, multifidi strengthening with band in standing, hip abduction and extension with band in standing, possibly self- massage SCM, B[place]yko breathing in hook lying
--- NOTE | 2021-04-02 09:46 | PT.OTN ---
Current Diagnoses Benign neoplasm of cranial nerves (04/02/21) Dizziness and giddiness (04/02/21) Other reduced mobility (04/02/21) Physical Therapy Treatment Note PT-OP-A Visit Information Start: 02/26/21 07:29 Freq: Status: Active Protocol: Document 04/02/21 09:00 MB (Rec: 04/02/21 09:46 MB [id number]) Out-Patient Physical Therapy Visit Information Visit Information Visit Type Progress Note Visit Note [facility] [place], Medicare Advantage Visit Start Time 09:00 Visit Stop Time 09:40 Total Visit Minutes 40 Visit Number 9 PT-OP-B Current Condition Start: 02/26/21 07:29 Freq: Status: Active Protocol: Document 02/26/21 14:31 MB (Rec: 02/26/21 14:49 MB [id number]) Current Condition History of Current Condition Onset Date 12/12/20 Current Complaints Balance issues come and go History of Current Condition Pt states that after his second COVID shot, he had a lot of dizziness and he was horizontal for two days. He had worst dizziness and nausea with eyes opened. He vomited a lot. Pt saw a neurologist. He was concerned about PD and the neurologist said it is not PD. He was told to keep doing the Carrie 3x/day which he has been doing. He was told that dizziness should go away within few months. He went to an opthamologist and was told that his vision is okay. He did see abnormal eye movement in his right eye. 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 He lost his balance nerve and auditory nerve with the surgery. 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 He had balance trouble after the surgery. Ultimately, his brain adjusted and he had normal balance and could ride a bike. He has ringing in his right ear. PMH: essential tremor, removed right acoustic neuroma, B foot numbness Pt states that he is getting better. He did have falls and injured his left shoulder. He always fell to the left. Pt reports left shoulder pain rated 3-4/10. Pt reports 5 falls in the last year and three in the last three months . He is just now feeling comfortable driving in town. Pt reports numbness and tingling in bottom of his feet only, vision changes with reports that his vision bounces around and roaring/ ringing in the ears, performance of sit-ups, chronic hearing change. Pt denies ear pressure, history of concussion or whiplash, weakness, sinus/allergy issues , trouble swallowing, recent overhead lifting, B12 deficiency, eye pressure changes, chirpractor treatment , TMJ/headache. Pt is afraid of falling, walking downstairs is a challenge, he cannot ride a bike and occ has to use his walking sticks. Walking in the dark is really a problem. Prior Treatments and Tests MR brain: some changes on the report but the impression says NAD X-ray left shoulder: downsloping acromion likely impinging the rotator cuff tendons, if clinically indicated, MRI may be helpful. Treatment Goals Patient/Caregiver Goals To improve balance and confidence with walking. PT-OP-C Subjective Start: 02/26/21 07:29 Freq: Status: Active Protocol: Document 04/02/21 09:00 MB (Rec: 04/02/21 09:46 MB [id number]) OP-PT Subjective Patient Comments Patient Comments Pt walks in from the [employer] to [place] and then he got a ride to PT. He will be walking back to the [employer]. He might stop by the pool first. PT-OP-D Balance Start: 02/26/21 07:29 Freq: Status: Active Protocol: Document 02/26/21 14:31 MB (Rec: 02/26/21 16:03 MB [id number]) OP-PT Balance Assessment Sitting Balance Static Sitting Balance Ability Fair Dynamic Sitting Balance Ability Fair Sitting Balance Comments UE support for static and dynamic sitting balance Standing Balance Static Standing Balance Ability Fair Dynamic Standing Balance Ability Fair Standing Balance Comments Pt occ reaches for chair d/t LOB Mullins Fall Scale Copyright Permission PT-OP-H Neuro Start: 02/26/21 07:29 Freq: Status: Active Protocol: Document 02/26/21 14:31 MB (Rec: 02/26/21 16:03 MB [id number]) Sensation Evaluation Comments Summary Comments Pt reports chronic change in sensation both feet Coordination Evaluation Comments Coordination Comments B finger to nose altered d/t B tremor, more noticeable in right UE today Vital Signs Comments Vital Signs Comments Positive orthostatic assessment with BP and HR in LUE: supine 168/81, 73; standing 150/80, 76; standing 30 sec 140/76, 69; standing 1 min 30 sec 144/77, 70. Pt reports spinning type dizziness upon standing PT-OP-J Posture/Palpation/Skin Start: 02/26/21 07:29 Freq: Status: Active Protocol: Document 02/26/21 14:31 MB (Rec: 02/26/21 16:03 MB [id number]) Posture Evaluation Comments Posture Comments Standing with shoes donned: forward head with left tragus 2 1/2 inch in front of left AC joint, rounded left shoulder, decreased cervical and thoracic curvature, increased convexity right thoracic spine , right shoulder lower than the left with some scapular positioning differences, anterior tilt pelvis, head rests in mild right rotation and left SB PT-OP-K Range of Motion Start: 02/26/21 07:29 Freq: Status: Active Protocol: Document 02/26/21 14:31 MB (Rec: 02/26/21 16:03 MB [id number]) Cervical Spine Range of Motion Cervical Spine Active Testing Position Standing Flexion 40 Extension 30 Rotation Left 20 Rotation Right 35 Comments Increased tension right SCM and scalenes Shoulder Goniometric Range of Motion Shoulder ROM Limitations Comments B shoulder flexion and abduction grossly normal and pt reports pain 3-4/10 left shoulder PT-OP-M Strength Start: 02/26/21 07:29 Freq: Status: Active Protocol: Document 02/26/21 14:31 MB (Rec: 02/26/21 16:03 MB [id number]) Shoulder Strength Shoulder Manual Muscle Testing Left Comments NT in setting of injury and painful active movement Right Flexion 5 Normal Abduction (C5) 5 Normal Elbow/Forearm Strength Elbow and Forearm Manual Muscle Testing Left Comments NT in setting of left shoulder injury Right Flexion (C6) 5 Normal Extension (C7) 5 Normal Pronation 5 Normal Supination 5 Normal Wrist Strength Wrist Manual Muscle Testing Left Flexion (C7) 5 Normal Extension (C6) 4 Good Right Flexion (C7) 5 Normal Extension (C6) 5 Normal PT-OP-O Vestibular Start: 02/26/21 07:29 Freq: Status: Active Protocol: Document 02/26/21 14:31 MB (Rec: 02/26/21 16:03 MB [id number]) Vestibular Assessment Visual Testing Smooth Pursuits Horizontal Normal Smooth Pursuits Vertical Normal Gaze Evoked Nystagmus With Fixation Negative Convergence Test WNL Spontaneous Nystagmus Negative Positional Testing [place]-Hallpike Negative Left,Negative Right Rolling Test Negative Left,Negative Right Comments Vestibular Comments Pt reports dizziness with Roll Test moving from right to left and may have had one beat nystagmus but very difficult to see if it was PT-OP-Q Treatments Start: 02/26/21 07:29 Freq: Status: Active Protocol: Document 04/02/21 09:00 MB (Rec: 04/02/21 09:46 MB [id number]) Therapeutic Exercises Standing Exercises STM with racquet ball Standing Exercise Name Intrascapular massage and cervical rotation holding TrP Side bilateral Equipment Used Racquet ball in sock Other Exercises HEP review Comments Verbally reviewed today for progress note Gait Training Gait Activity 6MWT Comments Pt meets goal today, gait trains 1602 feet in 6 minutes. His gait pattern is similar during 6MWT and throughout treatment when walking in clinic: stiff posture with elevated left shoulder and little left scapular movement, forward head and posture Neuro Re-Education Treatment Balance Activities FGA Comments Score is 21/30 today and see goal for comments PT-OP-T Assessment and Plan Start: 02/26/21 07:29 Freq: Status: Active Protocol: Document 04/02/21 09:00 MB (Rec: 04/02/21 09:46 MB [id number]) Physical Therapy Assessment Rehab Potential Rehabilitation Potential Fair Evaluation Complexity Number of Personal Factors/Comorbidities 1-2 Number of Body Systems Impaired 3 Clinical Presentation at Evaluation Evolving Impairments Impairments Activity Tolerance,Balance, Coordination,Functional Activities,Functional Mobility ,Gait,Pain,Posture,ROM, Sensation,Soft Tissue Mobility ,Strength,Vestibular Other Concerns Fall Risk Yes Goals 4 Foreign Agent Goal (LTG) Pt will gait train at least 1400 feet in 6 minutes without AD to decrease fall risk by . 04/02/21: Pt gait trains 1602 feet in 6 minutes without problems LTG Duration Met 3 Intermediate Goal (LTG) Pt will perform HEP with I including postural, cervical, VOR, balance, and relaxation exercises to improve dizziness and balance by 06/02/21. 04/02/21: Pt is performing tandem gait, corner balance for SLS (PT did not give him this one), letter a exercise for VOR, head turns with gait and abdominal exercises LTG Duration 8 weeks 2 Foreign Agent Goal (LTG) Pt will perform WNLs on FGA to decrease fall risk by 06/02/21 . 04/02/21: FGA score is 21/30 and pt has most trouble gait training with narrow AMADOU, eyes closed, head turns and walking backwards LTG Duration 8 weeks 1 Foreign Agent Goal (LTG) Pt will deny falls to decrease risk of injury by 06/02/21. 04/02/21: Pt reports a fall when wacking weeds with his walking stick on [employer] last week. LTG Duration 8 weeks Assessment Summary Assessment Pt is diphoretic upon arrival and PT is concerned as [place] [employer] [place] [facility] [place] got a ride here and he will be walking after PT--it is up to the 90s today. He has not bought electrolytes yet. PT con't to encourage this. PT gives pt water, a towel to wipe his face, and cervical ice for 5' before treatment. Pt has met 6MWT goal since starting PT. He is performing progressive HEP . He con't to make questionable decisions about self-care regarding balance and hydration. This caused him to fall and PT is concerned about this. He sees his doctor tomorrow and he will ask him about his left shoulder. His left shoulder is elevated and does not move much passively with PT in previous PT treatments or actively when walking today. Tried open book with elbows bent today and pt had a lot of left shoulder pain and so stopped. He will benefit fromg ongoing PT for postual, VOR, balance and manual interventions. PT has not ruled out central contribution given left-sided weakness and falls, tremor. Physical Therapy Plan Frequency and Duration Frequency of Treatment 2x/Week Duration of Treatment 8 weeks Plan of Care Start Date 04/02/21 Plan of Care End Date 06/04/21 Therapeutic Interventions Therapeutic Interventions Balance Training,Canalithic Repositioning,Coordination Training,Gait Training,Home Exercise Program,Joint Mobilizations,Manual Therapy, Neuromuscular Re-education, Patient/Caregiver Education, Self-Care/Home Management,Soft Tissue Mobilization,Taping, Therapeutic Activities, Therapeutic Exercises, Vestibular Rehabilitation Modalities Cold Pack/Ice Massage,Hot Packs Next Visit Focus/Plan Next Note Type Treatment Note Next Visit Plan Progress outdoors balance training. B[place]yko breathing, ongoing balance work and manual work, hip abduction and extension with band in standing, possibly self- massage SCM
--- NOTE | 2021-04-02 09:46 | PT.OPPOC ---
Physical, Occupational & Speech Therapy At 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) Dizziness and giddiness (04/02/21) Other reduced mobility (04/02/21) Visit Care Team Role Provider Type Neal Foote DO Attending Provider Physician Primary Care Provider Referring Provider Specialty: [facility] Practice Address: [address] [place] [address], [facility] Email: Plan Of Care PT-OP-T Assessment and Plan Start: 02/26/21 07:29 Freq: Status: Active Protocol: Document 04/02/21 09:00 MB (Rec: 04/02/21 09:46 MB [id number]) Physical Therapy Assessment Rehab Potential Rehabilitation Potential Fair Evaluation Complexity Number of Personal Factors/Comorbidities 1-2 Number of Body Systems Impaired 3 Clinical Presentation at Evaluation Evolving Impairments Impairments Activity Tolerance,Balance, Coordination,Functional Activities,Functional Mobility ,Gait,Pain,Posture,ROM, Sensation,Soft Tissue Mobility ,Strength,Vestibular Other Concerns Fall Risk Yes Goals 4 Forest Economist Goal (LTG) Pt will gait train at least 1400 feet in 6 minutes without AD to decrease fall risk by . 04/02/21: Pt gait trains 1602 feet in 6 minutes without problems LTG Duration Met 3 Long-Term Goal (LTG) Pt will perform HEP with I including postural, cervical, VOR, balance, and relaxation exercises to improve dizziness and balance by 06/02/21. 04/02/21: Pt is performing tandem gait, corner balance for SLS (PT did not give him this one), letter a exercise for VOR, head turns with gait and abdominal exercises LTG Duration 8 weeks 2 Long-Term Goal (LTG) Pt will perform WNLs on FGA to decrease fall risk by 06/02/21 . 04/02/21: FGA score is 21/30 and pt has most trouble gait training with narrow AMADOU, eyes closed, head turns and walking backwards LTG Duration 8 weeks 1 Forest Economist Goal (LTG) Pt will deny falls to decrease risk of injury by 06/02/21. 04/02/21: Pt reports a fall when wacking weeds with his walking stick [place] last week. LTG Duration 8 weeks Assessment Summary Assessment Pt is diphoretic upon arrival and PT is concerned as he walked from [employer] to [facility] [place] and then got a ride here and he will be walking after PT--it is up to the 90s today. He has not bought electrolytes yet. PT con't to encourage this. PT gives pt water, a towel to wipe his face, and cervical ice for 5' before treatment. Pt has met 6MWT goal since starting PT. He is performing progressive HEP . He con't to make questionable decisions about self-care regarding balance and hydration. This caused him to fall and PT is concerned about this. He sees his doctor tomorrow and he will ask him about his left shoulder. His left shoulder is elevated and does not move much passively with PT in previous PT treatments or actively when walking today. Tried open book with elbows bent today and pt had a lot of left shoulder pain and so stopped. He will benefit fromg ongoing PT for postual, VOR, balance and manual interventions. PT has not ruled out central contribution given left-sided weakness and falls, tremor. Physical Therapy Plan Frequency and Duration Frequency of Treatment 2x/Week Duration of Treatment 8 weeks Plan of Care Start Date 04/02/21 Plan of Care End Date 06/04/21 Therapeutic Interventions Therapeutic Interventions Balance Training,Canalithic Repositioning,Coordination Training,Gait Training,Home Exercise Program,Joint Mobilizations,Manual Therapy, Neuromuscular Re-education, Patient/Caregiver Education, Self-Care/Home Management,Soft Tissue Mobilization,Taping, Therapeutic Activities, Therapeutic Exercises, Vestibular Rehabilitation Modalities Cold Pack/Ice Massage,Hot Packs Next Visit Focus/Plan Next Note Type Treatment Note Next Visit Plan Progress outdoors balance training. Buteyko breathing, ongoing balance work and manual work, hip abduction and extension with band in standing, possibly self- massage SCM Plan of Care Dates Plan of Care Start Date 04/02/21 Plan of Care End Date 06/04/21 Electronically Signed by: Frida Polo PT 04/02/21 0114 Please Sign and Return: I have reviewed this Plan of Care and certify that the skilled therapy services above are required to meet the patient?s needs. Physician Signature Date Printed Name and Credentials Clinical Instructor Signature Printed Name and Credentials
--- NOTE | 2021-04-06 15:07 | PT.OTN ---
Current Diagnoses Benign neoplasm of cranial nerves (04/06/21) Dizziness and giddiness (04/06/21) Other reduced mobility (04/06/21) Physical Therapy Treatment Note PT-OP-A Visit Information Start: 02/26/21 07:29 Freq: Status: Active Protocol: Document 04/06/21 14:30 MB (Rec: 04/06/21 15:07 MB [id number]) Out-Patient Physical Therapy Visit Information Visit Information Visit Type Treatment Note Visit Start Time 14:30 Visit Stop Time 15:00 Total Visit Minutes 30 Visit Number 10 PT-OP-B Current Condition Start: 02/26/21 07:29 Freq: Status: Active Protocol: Document 02/26/21 14:31 MB (Rec: 02/26/21 14:49 MB [id number]) Current Condition History of Current Condition Onset Date 12/12/20 Current Complaints Balance issues come and go History of Current Condition Pt states that after his second COVID shot, he had a lot of dizziness and he was horizontal for two days. He had worst dizziness and nausea with eyes opened. He vomited a lot. Pt saw a neurologist. He was concerned about PD and the neurologist said it is not PD. He was told to keep doing the Carrie 3x/day which he has been doing. He was told that dizziness should go away within few months. He went to an opthamologist and was told that his vision is okay. He did see abnormal eye movement in his right eye. 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 He lost his balance nerve and auditory nerve with the surgery. 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 He had balance trouble after the surgery. Ultimately, his brain adjusted and he had normal balance and could ride a bike. He has ringing in his right ear. PMH: essential tremor, removed right acoustic neuroma, B foot numbness Pt states that he is getting better. He did have falls and injured his left shoulder. He always fell to the left. Pt reports left shoulder pain rated 3-4/10. Pt reports 5 falls in the last year and three in the last three months . He is just now feeling comfortable driving in town. Pt reports numbness and tingling in bottom of his feet only, vision changes with reports that his vision bounces around and roaring/ ringing in the ears, performance of sit-ups, chronic hearing change. Pt denies ear pressure, history of concussion or whiplash, weakness, sinus/allergy issues , trouble swallowing, recent overhead lifting, B12 deficiency, eye pressure changes, chirpractor treatment , TMJ/headache. Pt is afraid of falling, walking downstairs is a challenge, he cannot ride a bike and occ has to use his walking sticks. Walking in the dark is really a problem. Prior Treatments and Tests MR brain: some changes on the report but the impression says NAD X-ray left shoulder: downsloping acromion likely impinging the rotator cuff tendons, if clinically indicated, MRI may be helpful. Treatment Goals Patient/Caregiver Goals To improve balance and confidence with walking. PT-OP-C Subjective Start: 02/26/21 07:29 Freq: Status: Active Protocol: Document 04/06/21 14:30 MB (Rec: 04/06/21 15:07 MB [id number]) OP-PT Subjective Patient Comments Patient Comments Pt states that he didn't have a good day yesterday. He mowed his yard with a push mower for one hour and a half yesterday and got hot and dehydrated. He tried to drink a lot including electrolytes. He felt a little light-headed and imbalanced and dizzy. He got EMG and nerve testing for his feet. He was told he has mild neuropathy. PT-OP-D Balance Start: 02/26/21 07:29 Freq: Status: Active Protocol: Document 02/26/21 14:31 MB (Rec: 02/26/21 16:03 MB [id number]) OP-PT Balance Assessment Sitting Balance Static Sitting Balance Ability Fair Dynamic Sitting Balance Ability Fair Sitting Balance Comments UE support for static and dynamic sitting balance Standing Balance Static Standing Balance Ability Fair Dynamic Standing Balance Ability Fair Standing Balance Comments Pt occ reaches for chair d/t LOB Mullins Fall Scale Copyright Permission PT-OP-H Neuro Start: 02/26/21 07:29 Freq: Status: Active Protocol: Document 02/26/21 14:31 MB (Rec: 02/26/21 16:03 MB [id number]) Sensation Evaluation Comments Summary Comments Pt reports chronic change in sensation both feet Coordination Evaluation Comments Coordination Comments B finger to nose altered d/t B tremor, more noticeable in right UE today Vital Signs Comments Vital Signs Comments Positive orthostatic assessment with BP and HR in LUE: supine 168/81, 73; standing 150/80, 76; standing 30 sec 140/76, 69; standing 1 min 30 sec 144/77, 70. Pt reports spinning type dizziness upon standing PT-OP-J Posture/Palpation/Skin Start: 02/26/21 07:29 Freq: Status: Active Protocol: Document 02/26/21 14:31 MB (Rec: 02/26/21 16:03 MB [id number]) Posture Evaluation Comments Posture Comments Standing with shoes donned: forward head with left tragus 2 1/2 inch in front of left AC joint, rounded left shoulder, decreased cervical and thoracic curvature, increased convexity right thoracic spine , right shoulder lower than the left with some scapular positioning differences, anterior tilt pelvis, head rests in mild right rotation and left SB PT-OP-K Range of Motion Start: 02/26/21 07:29 Freq: Status: Active Protocol: Document 02/26/21 14:31 MB (Rec: 02/26/21 16:03 MB [id number]) Cervical Spine Range of Motion Cervical Spine Active Testing Position Standing Flexion 40 Extension 30 Rotation Left 20 Rotation Right 35 Comments Increased tension right SCM and scalenes Shoulder Goniometric Range of Motion Shoulder ROM Limitations Comments B shoulder flexion and abduction grossly normal and pt reports pain 3-4/10 left shoulder PT-OP-M Strength Start: 02/26/21 07:29 Freq: Status: Active Protocol: Document 02/26/21 14:31 MB (Rec: 02/26/21 16:03 MB [id number]) Shoulder Strength Shoulder Manual Muscle Testing Left Comments NT in setting of injury and painful active movement Right Flexion 5 Normal Abduction (C5) 5 Normal Elbow/Forearm Strength Elbow and Forearm Manual Muscle Testing Left Comments NT in setting of left shoulder injury Right Flexion (C6) 5 Normal Extension (C7) 5 Normal Pronation 5 Normal Supination 5 Normal Wrist Strength Wrist Manual Muscle Testing Left Flexion (C7) 5 Normal Extension (C6) 4 Good Right Flexion (C7) 5 Normal Extension (C6) 5 Normal PT-OP-O Vestibular Start: 02/26/21 07:29 Freq: Status: Active Protocol: Document 02/26/21 14:31 MB (Rec: 02/26/21 16:03 MB [id number]) Vestibular Assessment Visual Testing Smooth Pursuits Horizontal Normal Smooth Pursuits Vertical Normal Gaze Evoked Nystagmus With Fixation Negative Convergence Test WNL Spontaneous Nystagmus Negative Positional Testing [place]-Hallpike Negative Left,Negative Right Rolling Test Negative Left,Negative Right Comments Vestibular Comments Pt reports dizziness with Roll Test moving from right to left and may have had one beat nystagmus but very difficult to see if it was PT-OP-Q Treatments Start: 02/26/21 07:29 Freq: Status: Active Protocol: Document 04/06/21 14:30 MB (Rec: 04/06/21 15:07 MB [id number]) Therapeutic Exercises Supine Exercises Buteyko breathing Supine Exercise Name Initiated Hortencia today, ed in in theory, practiced ex 1 with diaphragm Comments See assessment comments, pt hook lying and ice under neck, legs supported Manual Therapy Treatment Other Other Manual Treatments STM B SCM PT-OP-T Assessment and Plan Start: 02/26/21 07:29 Freq: Status: Active Protocol: Document 04/06/21 14:30 MB (Rec: 04/06/21 15:07 MB [id number]) Physical Therapy Assessment Rehab Potential Rehabilitation Potential Fair Evaluation Complexity Number of Personal Factors/Comorbidities 1-2 Number of Body Systems Impaired 3 Clinical Presentation at Evaluation Evolving Impairments Impairments Activity Tolerance,Balance, Coordination,Functional Activities,Functional Mobility ,Gait,Pain,Posture,ROM, Sensation,Soft Tissue Mobility ,Strength,Vestibular Other Concerns Fall Risk Yes Goals 3 Plastics Technician Goal (LTG) Pt will perform HEP with I including postural, cervical, VOR, balance, and relaxation exercises to improve dizziness and balance by 06/02/21. 04/02/21: Pt is performing tandem gait, corner balance for SLS (PT did not give him this one), letter a exercise for VOR, head turns with gait and abdominal exercises LTG Duration 8 weeks 2 Prison Goal (LTG) Pt will perform WNLs on FGA to decrease fall risk by 06/02/21 . 04/02/21: FGA score is 21/30 and pt has most trouble gait training with narrow AMADOU, eyes closed, head turns and walking backwards LTG Duration 8 weeks 1 Prison Goal (LTG) Pt will deny falls to decrease risk of injury by 06/02/21. 04/02/21: Pt reports a fall when wacking weeds with his walking stick [place] last week. LTG Duration 8 weeks Assessment Summary Assessment Initiated Buteyko breathing today and HR and O2 sats before breathing are: 55 BPM and 95%. Paper tape over mouth and pt is able to perform 6 reps with improving saturation up to 97%. CP 12-15 sec. Added diaphragm breathing after several reps and pt performs well. After several reps of diaphram breathing, CP up to 38 sec and O2 sats 98%. His HR does not reduce with exercise. Ed pt to initiate nasal breathing with mouth closed with walking outside and he will try. Pt states that he saw Dr. Foote for his left shoulder and he will be getting an order added for PT for his left shoulder. He is also awaiting MRI of left shoulder. Physical Therapy Plan Frequency and Duration Frequency of Treatment 2x/Week Duration of Treatment 8 weeks Plan of Care Start Date 04/02/21 Plan of Care End Date 06/04/21 Therapeutic Interventions Therapeutic Interventions Balance Training,Canalithic Repositioning,Coordination Training,Gait Training,Home Exercise Program,Joint Mobilizations,Manual Therapy, Neuromuscular Re-education, Patient/Caregiver Education, Self-Care/Home Management,Soft Tissue Mobilization,Taping, Therapeutic Activities, Therapeutic Exercises, Vestibular Rehabilitation Modalities Cold Pack/Ice Massage,Hot Packs Next Visit Focus/Plan Next Note Type Treatment Note Next Visit Plan Progress outdoors balance training, manual work, hip abduction and extension with band in standing, possibly self-massage SCM
--- NOTE | 2021-04-11 15:57 | PT.OTN ---
Current Diagnoses Benign neoplasm of cranial nerves (04/11/21) Dizziness and giddiness (04/11/21) Other reduced mobility (04/11/21) Physical Therapy Treatment Note PT-OP-A Visit Information Start: 02/26/21 07:29 Freq: Status: Active Protocol: Document 04/11/21 14:30 MB (Rec: 04/11/21 15:16 MB [id number]) Out-Patient Physical Therapy Visit Information Visit Information Visit Type Treatment Note Visit Start Time 14:30 Visit Stop Time 15:15 Total Visit Minutes 45 Visit Number 11 PT-OP-B Current Condition Start: 02/26/21 07:29 Freq: Status: Active Protocol: Document 02/26/21 14:31 MB (Rec: 02/26/21 14:49 MB [id number]) Current Condition History of Current Condition Onset Date 12/12/20 Current Complaints Balance issues come and go History of Current Condition Pt states that after his second COVID shot, he had a lot of dizziness and he was horizontal for two days. He had worst dizziness and nausea with eyes opened. He vomited a lot. Pt saw a neurologist. He was concerned about PD and the neurologist said it is not PD. He was told to keep doing the Carrie 3x/day which he has been doing. He was told that dizziness should go away within few months. He went to an opthamologist and was told that his vision is okay. He did see abnormal eye movement in his right eye. 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 He lost his balance nerve and auditory nerve with the surgery. 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 He had balance trouble after the surgery. Ultimately, his brain adjusted and he had normal balance and could ride a bike. He has ringing in his right ear. PMH: essential tremor, removed right acoustic neuroma, B foot numbness Pt states that he is getting better. He did have falls and injured his left shoulder. He always fell to the left. Pt reports left shoulder pain rated 3-4/10. Pt reports 5 falls in the last year and three in the last three months . He is just now feeling comfortable driving in town. Pt reports numbness and tingling in bottom of his feet only, vision changes with reports that his vision bounces around and roaring/ ringing in the ears, performance of sit-ups, chronic hearing change. Pt denies ear pressure, history of concussion or whiplash, weakness, sinus/allergy issues , trouble swallowing, recent overhead lifting, B12 deficiency, eye pressure changes, chirpractor treatment , TMJ/headache. Pt is afraid of falling, walking downstairs is a challenge, he cannot ride a bike and occ has to use his walking sticks. Walking in the dark is really a problem. Prior Treatments and Tests MR brain: some changes on the report but the impression says NAD X-ray left shoulder: downsloping acromion likely impinging the rotator cuff tendons, if clinically indicated, MRI may be helpful. Treatment Goals Patient/Caregiver Goals To improve balance and confidence with walking. PT-OP-C Subjective Start: 02/26/21 07:29 Freq: Status: Active Protocol: Document 04/11/21 14:30 MB (Rec: 04/11/21 15:16 MB [id number]) OP-PT Subjective Patient Comments Patient Comments Pt states that today is a good day. His son brought over a limb saw and he spent a lot of time looking up and that made him really loopy. He did the Carrie and it helped. PT-OP-D Balance Start: 02/26/21 07:29 Freq: Status: Active Protocol: Document 02/26/21 14:31 MB (Rec: 02/26/21 16:03 MB [id number]) OP-PT Balance Assessment Sitting Balance Static Sitting Balance Ability Fair Dynamic Sitting Balance Ability Fair Sitting Balance Comments UE support for static and dynamic sitting balance Standing Balance Static Standing Balance Ability Fair Dynamic Standing Balance Ability Fair Standing Balance Comments Pt occ reaches for chair d/t LOB Mullins Fall Scale Copyright Permission PT-OP-H Neuro Start: 02/26/21 07:29 Freq: Status: Active Protocol: Document 02/26/21 14:31 MB (Rec: 02/26/21 16:03 MB [id number]) Sensation Evaluation Comments Summary Comments Pt reports chronic change in sensation both feet Coordination Evaluation Comments Coordination Comments B finger to nose altered d/t B tremor, more noticeable in right UE today Vital Signs Comments Vital Signs Comments Positive orthostatic assessment with BP and HR in LUE: supine 168/81, 73; standing 150/80, 76; standing 30 sec 140/76, 69; standing 1 min 30 sec 144/77, 70. Pt reports spinning type dizziness upon standing PT-OP-J Posture/Palpation/Skin Start: 02/26/21 07:29 Freq: Status: Active Protocol: Document 02/26/21 14:31 MB (Rec: 02/26/21 16:03 MB [id number]) Posture Evaluation Comments Posture Comments Standing with shoes donned: forward head with left tragus 2 1/2 inch in front of left AC joint, rounded left shoulder, decreased cervical and thoracic curvature, increased convexity right thoracic spine , right shoulder lower than the left with some scapular positioning differences, anterior tilt pelvis, head rests in mild right rotation and left SB PT-OP-K Range of Motion Start: 02/26/21 07:29 Freq: Status: Active Protocol: Document 02/26/21 14:31 MB (Rec: 02/26/21 16:03 MB [id number]) Cervical Spine Range of Motion Cervical Spine Active Testing Position Standing Flexion 40 Extension 30 Rotation Left 20 Rotation Right 35 Comments Increased tension right SCM and scalenes Shoulder Goniometric Range of Motion Shoulder ROM Limitations Comments B shoulder flexion and abduction grossly normal and pt reports pain 3-4/10 left shoulder PT-OP-M Strength Start: 02/26/21 07:29 Freq: Status: Active Protocol: Document 02/26/21 14:31 MB (Rec: 02/26/21 16:03 MB [id number]) Shoulder Strength Shoulder Manual Muscle Testing Left Comments NT in setting of injury and painful active movement Right Flexion 5 Normal Abduction (C5) 5 Normal Elbow/Forearm Strength Elbow and Forearm Manual Muscle Testing Left Comments NT in setting of left shoulder injury Right Flexion (C6) 5 Normal Extension (C7) 5 Normal Pronation 5 Normal Supination 5 Normal Wrist Strength Wrist Manual Muscle Testing Left Flexion (C7) 5 Normal Extension (C6) 4 Good Right Flexion (C7) 5 Normal Extension (C6) 5 Normal PT-OP-O Vestibular Start: 02/26/21 07:29 Freq: Status: Active Protocol: Document 02/26/21 14:31 MB (Rec: 02/26/21 16:03 MB [id number]) Vestibular Assessment Visual Testing Smooth Pursuits Horizontal Normal Smooth Pursuits Vertical Normal Gaze Evoked Nystagmus With Fixation Negative Convergence Test WNL Spontaneous Nystagmus Negative Positional Testing Montgomery-Hallpike Negative Left,Negative Right Rolling Test Negative Left,Negative Right Comments Vestibular Comments Pt reports dizziness with Roll Test moving from right to left and may have had one beat nystagmus but very difficult to see if it was PT-OP-Q Treatments Start: 02/26/21 07:29 Freq: Status: Active Protocol: Document 04/11/21 14:30 MB (Rec: 04/11/21 15:57 MB [id number]) Self-Care/Home Management Treatment Education Other Education Pt demonstrates a modified Carrie that is extremely strenuous on his neck and so PT educates him that it is not beneficial for him to con't this at home. PT types up handout for Semont for left ear and ed pt how to perform safely at home. Also spent extensive time educating pt on taking rest breaks inside including drinking non- caffeinated fluid and cooling off. Pt con't to walk from the [employer] [place] and do poorly in the heat. Overall, PT is concerned about pt's self- awareness as far as posture, heat, hydration, taking breaks , not performing ongoing provocative postures like looking up, performing self- Carrie, etc Canalithic Repositioning BPPV Treatment Other Comments Pt presents with 2-3 beat nystagmus to the left that is torsional with left Nguyen- Daroff position and so check for BPPV with Montgomery-Hallpike and Roll Test and 1 beat left beating horizontal nystagmus and vertigo with left Марина- Hallpike and when being moved back to supine from right roll test and so treated with modified Carrie to the left and then Semont to the left d/t postural changes PT-OP-T Assessment and Plan Start: 02/26/21 07:29 Freq: Status: Active Protocol: Document 04/11/21 14:30 MB (Rec: 04/11/21 15:16 MB [id number]) Physical Therapy Assessment Rehab Potential Rehabilitation Potential Fair Evaluation Complexity Number of Personal Factors/Comorbidities 1-2 Number of Body Systems Impaired 3 Clinical Presentation at Evaluation Evolving Impairments Impairments Activity Tolerance,Balance, Coordination,Functional Activities,Functional Mobility ,Gait,Pain,Posture,ROM, Sensation,Soft Tissue Mobility ,Strength,Vestibular Other Concerns Fall Risk Yes Goals 3 Fdc Goal (LTG) Pt will perform HEP with I including postural, cervical, VOR, balance, and relaxation exercises to improve dizziness and balance by 06/02/21. 04/02/21: Pt is performing tandem gait, corner balance for SLS (PT did not give him this one), letter a exercise for VOR, head turns with gait and abdominal exercises LTG Duration 8 weeks 2 Ui Developer With Angular Js Goal (LTG) Pt will perform WNLs on FGA to decrease fall risk by 06/02/21 . 04/02/21: FGA score is 21/30 and pt has most trouble gait training with narrow AMADOU, eyes closed, head turns and walking backwards LTG Duration 8 weeks 1 Fdc Goal (LTG) Pt will deny falls to decrease risk of injury by 06/02/21. 04/02/21: Pt reports a fall when wacking weeds with his walking stick on [place] last week. LTG Duration 8 weeks Assessment Summary Assessment Pt presents with 2-3 beat nystagmus with positioninal for Nguyen-Daroff to the left today and he reports vertigo and so retested for BPPV and he presents with 1 beat left directional torsional nystagmus with left Montgomery- Hallpike and rolling back to neutral from right Roll Test. Treated with modified Carrie and Semont and pt's severe postural changes limit mobility with these maneuvers and so unsure if otoconia successful moved today. Also, postural changes may cause recurrence. Did provide pt with better self-maneuver than he was performing at home. Con't efforts and work on cervical spine. Physical Therapy Plan Frequency and Duration Frequency of Treatment 2x/Week Duration of Treatment 8 weeks Plan of Care Start Date 04/02/21 Plan of Care End Date 06/04/21 Therapeutic Interventions Therapeutic Interventions Balance Training,Canalithic Repositioning,Coordination Training,Gait Training,Home Exercise Program,Joint Mobilizations,Manual Therapy, Neuromuscular Re-education, Patient/Caregiver Education, Self-Care/Home Management,Soft Tissue Mobilization,Taping, Therapeutic Activities, Therapeutic Exercises, Vestibular Rehabilitation Modalities Cold Pack/Ice Massage,Hot Packs Next Visit Focus/Plan Next Note Type Treatment Note Next Visit Plan Cervical and thoracic exercises in hook lying to improve posture. Progress outdoors balance training, manual work, hip abduction and extension with band in standing, possibly self- massage SCM
--- NOTE | 2021-04-12 12:16 | PT-IP ANOTE ---
Communication note for Dr. Foote: Charlie has been very compliant with attending PT appointments. He con't to report some bad days, especially when he is outdoors too long or looking up a lot (such as when preparing to prune trees). He con't to walk from [employer] landing to appointments, even on hot days, and he has arrived overheated and PT has put ice around his neck and given him water. I encouraged him to consider staying up on electrolytes and I do not know if he is doing this. He con't to go swimming at the pool and work at [employer]. I did look at the cervical MRI report and the impression was that his neck is not the main cause of his imbalance. I do feel that his severe cervical and thoracic postural changes are contributers to his imbalance and dizziness. Last treatment date, he had 1 beat nystagmus with BPPV testing and so I treated him and gave him a home maneuver to do because he was performing one that was really bad for his neck position and said he wanted one to do. He and I discussed his previous neurologist appointment and he said that the neurologist told him he did not have PD. I con't to be concerned about an underlying neurodegenerative process given his tremor, imbalance and facial expression. I wanted to write today to let you know that we will con't with PT for balance, cervical and postural work, vestibular PT and that I do continue to feel like he is going to need a neurology work-up. I am also concerned about cervical vasculature/neurovascular integrity given his forward posture, overheating and symptoms and dizziness looking up. Thank you, Frida
--- NOTE | 2021-04-25 08:40 | PT-OP ANOTE ---
PT reviews left shoulder MRI results and it reveals full-thickness supraspinatus tear and a labral tear among other findings.
--- NOTE | 2021-04-26 09:45 | PT.OTN ---
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) Dizziness and giddiness (04/26/21) Other reduced mobility (04/26/21) Physical Therapy Treatment Note PT-OP-A Visit Information Start: 02/26/21 07:29 Freq: Status: Active Protocol: Document 04/26/21 09:01 MB (Rec: 04/26/21 09:43 MB [id number]) Out-Patient Physical Therapy Visit Information Visit Information Visit Type Treatment Note Visit Start Time 09:01 Visit Stop Time 09:45 Total Visit Minutes 44 Visit Number 12 PT-OP-B Current Condition Start: 02/26/21 07:29 Freq: Status: Active Protocol: Document 02/26/21 14:31 MB (Rec: 02/26/21 14:49 MB [id number]) Current Condition History of Current Condition Onset Date 12/12/20 Current Complaints Balance issues come and go History of Current Condition Pt states that after his second COVID shot, he had a lot of dizziness and he was horizontal for two days. He had worst dizziness and nausea with eyes opened. He vomited a lot. Pt saw a neurologist. He was concerned about PD and the neurologist said it is not PD. He was told to keep doing the Carrie 3x/day which he has been doing. He was told that dizziness should go away within few months. He went to an opthamologist and was told that his vision is okay. He did see abnormal eye movement in his right eye. 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 He lost his balance nerve and auditory nerve with the surgery. 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 He had balance trouble after the surgery. Ultimately, his brain adjusted and he had normal balance and could ride a bike. He has ringing in his right ear. PMH: essential tremor, removed right acoustic neuroma, B foot numbness Pt states that he is getting better. He did have falls and injured his left shoulder. He always fell to the left. Pt reports left shoulder pain rated 3-4/10. Pt reports 5 falls in the last year and three in the last three months . He is just now feeling comfortable driving in town. Pt reports numbness and tingling in bottom of his feet only, vision changes with reports that his vision bounces around and roaring/ ringing in the ears, performance of sit-ups, chronic hearing change. Pt denies ear pressure, history of concussion or whiplash, weakness, sinus/allergy issues , trouble swallowing, recent overhead lifting, B12 deficiency, eye pressure changes, chirpractor treatment , TMJ/headache. Pt is afraid of falling, walking downstairs is a challenge, he cannot ride a bike and occ has to use his walking sticks. Walking in the dark is really a problem. Prior Treatments and Tests MR brain: some changes on the report but the impression says NAD X-ray left shoulder: downsloping acromion likely impinging the rotator cuff tendons, if clinically indicated, MRI may be helpful. Treatment Goals Patient/Caregiver Goals To improve balance and confidence with walking. PT-OP-C Subjective Start: 02/26/21 07:29 Freq: Status: Active Protocol: Document 04/26/21 09:01 MB (Rec: 04/26/21 09:43 MB [id number]) OP-PT Subjective Patient Comments Patient Comments Pt brings in left shoulder MRI report. He had a fall in the spring after the initial vertigo and injured the left shoulder. He had two more falls after that, each one re- injuring left shoulder. Pt wonders if left shoulder injury is major contributor to left neck pain and stiffness. Pt worked 6.5 hours in [employer] yesterday and he was wasted afterwards. It was hot in there. He is going swimming after PT today. Pt was out with a chain saw yesterday. He has to get on his knees to look up to the tree to look for an [employer] [place] [place]. The BPPV treatment was helpful. PT-OP-D Balance Start: 02/26/21 07:29 Freq: Status: Active Protocol: Document 02/26/21 14:31 MB (Rec: 02/26/21 16:03 MB [id number]) OP-PT Balance Assessment Sitting Balance Static Sitting Balance Ability Fair Dynamic Sitting Balance Ability Fair Sitting Balance Comments UE support for static and dynamic sitting balance Standing Balance Static Standing Balance Ability Fair Dynamic Standing Balance Ability Fair Standing Balance Comments Pt occ reaches for chair d/t LOB Mullins Fall Scale Copyright Permission PT-OP-H Neuro Start: 02/26/21 07:29 Freq: Status: Active Protocol: Document 02/26/21 14:31 MB (Rec: 02/26/21 16:03 MB [id number]) Sensation Evaluation Comments Summary Comments Pt reports chronic change in sensation both feet Coordination Evaluation Comments Coordination Comments B finger to nose altered d/t B tremor, more noticeable in right UE today Vital Signs Comments Vital Signs Comments Positive orthostatic assessment with BP and HR in LUE: supine 168/81, 73; standing 150/80, 76; standing 30 sec 140/76, 69; standing 1 min 30 sec 144/77, 70. Pt reports spinning type dizziness upon standing PT-OP-J Posture/Palpation/Skin Start: 02/26/21 07:29 Freq: Status: Active Protocol: Document 02/26/21 14:31 MB (Rec: 02/26/21 16:03 MB [id number]) Posture Evaluation Comments Posture Comments Standing with shoes donned: forward head with left tragus 2 1/2 inch in front of left AC joint, rounded left shoulder, decreased cervical and thoracic curvature, increased convexity right thoracic spine , right shoulder lower than the left with some scapular positioning differences, anterior tilt pelvis, head rests in mild right rotation and left SB PT-OP-K Range of Motion Start: 02/26/21 07:29 Freq: Status: Active Protocol: Document 02/26/21 14:31 MB (Rec: 02/26/21 16:03 MB [id number]) Cervical Spine Range of Motion Cervical Spine Active Testing Position Standing Flexion 40 Extension 30 Rotation Left 20 Rotation Right 35 Comments Increased tension right SCM and scalenes Shoulder Goniometric Range of Motion Shoulder ROM Limitations Comments B shoulder flexion and abduction grossly normal and pt reports pain 3-4/10 left shoulder PT-OP-M Strength Start: 02/26/21 07:29 Freq: Status: Active Protocol: Document 02/26/21 14:31 MB (Rec: 02/26/21 16:03 MB [id number]) Shoulder Strength Shoulder Manual Muscle Testing Left Comments NT in setting of injury and painful active movement Right Flexion 5 Normal Abduction (C5) 5 Normal Elbow/Forearm Strength Elbow and Forearm Manual Muscle Testing Left Comments NT in setting of left shoulder injury Right Flexion (C6) 5 Normal Extension (C7) 5 Normal Pronation 5 Normal Supination 5 Normal Wrist Strength Wrist Manual Muscle Testing Left Flexion (C7) 5 Normal Extension (C6) 4 Good Right Flexion (C7) 5 Normal Extension (C6) 5 Normal PT-OP-O Vestibular Start: 02/26/21 07:29 Freq: Status: Active Protocol: Document 02/26/21 14:31 MB (Rec: 02/26/21 16:03 MB [id number]) Vestibular Assessment Visual Testing Smooth Pursuits Horizontal Normal Smooth Pursuits Vertical Normal Gaze Evoked Nystagmus With Fixation Negative Convergence Test WNL Spontaneous Nystagmus Negative Positional Testing Sinclair-Hallpike Negative Left,Negative Right Rolling Test Negative Left,Negative Right Comments Vestibular Comments Pt reports dizziness with Roll Test moving from right to left and may have had one beat nystagmus but very difficult to see if it was PT-OP-Q Treatments Start: 02/26/21 07:29 Freq: Status: Active Protocol: Document 04/26/21 09:01 MB (Rec: 04/26/21 09:43 MB [id number]) Self-Care/Home Management Treatment Education Other Education Ed pt in avoid overheating, PT cannot help with left shoulder with regard to severity of injury and benefits of orthopedic appointment and pt to see orthopedist, importance of non -caffeinated fluids and electrolytes, better self-care for left arm. Re-ed in safety measures to consider with Semont/head and neck position, benefit of wicking clothing to stay cooler. BP is good today Canalithic Repositioning BPPV Treatment Other Comments Negative B Sinclair-Hallpike and Roll Test for dizziness and nystagmus. Moving from left side lying to sitting, PT notes reversal of nystagmus with right torsion/beat to the right, PT feels this indicates left posterior canalithiasis given nystagmus pattern and movement to get it . Guided Semont x2 today PT-OP-T Assessment and Plan Start: 02/26/21 07:29 Freq: Status: Active Protocol: Document 04/26/21 09:01 MB (Rec: 04/26/21 09:43 MB [id number]) Physical Therapy Assessment Rehab Potential Rehabilitation Potential Fair Evaluation Complexity Number of Personal Factors/Comorbidities 1-2 Number of Body Systems Impaired 3 Clinical Presentation at Evaluation Evolving Impairments Impairments Activity Tolerance,Balance, Coordination,Functional Activities,Functional Mobility ,Gait,Pain,Posture,ROM, Sensation,Soft Tissue Mobility ,Strength,Vestibular Other Concerns Fall Risk Yes Goals 3 Halfway Goal (LTG) Pt will perform HEP with I including postural, cervical, VOR, balance, and relaxation exercises to improve dizziness and balance by 06/02/21. 04/02/21: Pt is performing tandem gait, corner balance for SLS (PT did not give him this one), letter a exercise for VOR, head turns with gait and abdominal exercises LTG Duration 8 weeks 2 Halfway Goal (LTG) Pt will perform WNLs on FGA to decrease fall risk by 06/02/21 . 04/02/21: FGA score is 21/30 and pt has most trouble gait training with narrow AMADOU, eyes closed, head turns and walking backwards LTG Duration 8 weeks 1 Halfway Goal (LTG) Pt will deny falls to decrease risk of injury by 06/02/21. 04/02/21: Pt reports a fall when wacking weeds with his walking stick [place] last week. LTG Duration 8 weeks Assessment Summary Assessment BP and HR in LUE sittin/ 71, 69. Re-checked pt for BPPV today and nystagmus only seen when getting up from side lying and so Semont performed again today with PT guiding pt . PT cannot help a lot with extensive left shoulder issue but PT can help with other postural issues related to the shoulder. He is seeing an orthopedist. Con't PT. Physical Therapy Plan Frequency and Duration Frequency of Treatment 2x/Week Duration of Treatment 8 weeks Plan of Care Start Date 04/02/21 Plan of Care End Date 06/04/21 Therapeutic Interventions Therapeutic Interventions Balance Training,Canalithic Repositioning,Coordination Training,Gait Training,Home Exercise Program,Joint Mobilizations,Manual Therapy, Neuromuscular Re-education, Patient/Caregiver Education, Self-Care/Home Management,Soft Tissue Mobilization,Taping, Therapeutic Activities, Therapeutic Exercises, Vestibular Rehabilitation Modalities Cold Pack/Ice Massage,Hot Packs Next Visit Focus/Plan Next Note Type Treatment Note Next Visit Plan Cervical and thoracic exercises in hook lying to improve posture. Progress outdoors balance training, manual work, hip abduction and extension with band in standing, possibly self- massage SCM
--- NOTE | 2021-04-27 15:10 | PT.OTN ---
Current Diagnoses Benign neoplasm of cranial nerves (04/27/21) Dizziness and giddiness (04/27/21) Other reduced mobility (04/27/21) Physical Therapy Treatment Note PT-OP-A Visit Information Start: 02/26/21 07:29 Freq: Status: Active Protocol: Document 04/27/21 14:31 MB (Rec: 04/27/21 15:09 MB [id number]) Out-Patient Physical Therapy Visit Information Visit Information Visit Type Treatment Note Visit Note before KX Visit Start Time 14:31 Visit Stop Time 15:09 Total Visit Minutes 38 Visit Number 13 PT-OP-B Current Condition Start: 02/26/21 07:29 Freq: Status: Active Protocol: Document 02/26/21 14:31 MB (Rec: 02/26/21 14:49 MB [id number]) Current Condition History of Current Condition Onset Date 12/12/20 Current Complaints Balance issues come and go History of Current Condition Pt states that after his second COVID shot, he had a lot of dizziness and he was horizontal for two days. He had worst dizziness and nausea with eyes opened. He vomited a lot. Pt saw a neurologist. He was concerned about PD and the neurologist said it is not PD. He was told to keep doing the Carrie 3x/day which he has been doing. He was told that dizziness should go away within few months. He went to an opthamologist and was told that his vision is okay. He did see abnormal eye movement in his right eye. 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 He lost his balance nerve and auditory nerve with the surgery. 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 He had balance trouble after the surgery. Ultimately, his brain adjusted and he had normal balance and could ride a bike. He has ringing in his right ear. PMH: essential tremor, removed right acoustic neuroma, B foot numbness Pt states that he is getting better. He did have falls and injured his left shoulder. He always fell to the left. Pt reports left shoulder pain rated 3-4/10. Pt reports 5 falls in the last year and three in the last three months . He is just now feeling comfortable driving in town. Pt reports numbness and tingling in bottom of his feet only, vision changes with reports that his vision bounces around and roaring/ ringing in the ears, performance of sit-ups, chronic hearing change. Pt denies ear pressure, history of concussion or whiplash, weakness, sinus/allergy issues , trouble swallowing, recent overhead lifting, B12 deficiency, eye pressure changes, chirpractor treatment , TMJ/headache. Pt is afraid of falling, walking downstairs is a challenge, he cannot ride a bike and occ has to use his walking sticks. Walking in the dark is really a problem. Prior Treatments and Tests MR brain: some changes on the report but the impression says NAD X-ray left shoulder: downsloping acromion likely impinging the rotator cuff tendons, if clinically indicated, MRI may be helpful. Treatment Goals Patient/Caregiver Goals To improve balance and confidence with walking. PT-OP-C Subjective Start: 02/26/21 07:29 Freq: Status: Active Protocol: Document 04/27/21 14:31 MB (Rec: 04/27/21 15:09 MB [id number]) OP-PT Subjective Patient Comments Patient Comments Pt asks if there is any point in doing PT for the left shoulder before he sees the orthopedic surgeon. PT ed pt and (Re) that PT has not planned to work on shoulder too much given MRI findings and will focus on neck on thoracic spine. Pt does state that his left shoulder is better since the initial injury and he can do wall crawls and lift his arm better. Given this, PT does think that some gentle shoulder work may help posture . PT-OP-D Balance Start: 02/26/21 07:29 Freq: Status: Active Protocol: Document 02/26/21 14:31 MB (Rec: 02/26/21 16:03 MB [id number]) OP-PT Balance Assessment Sitting Balance Static Sitting Balance Ability Fair Dynamic Sitting Balance Ability Fair Sitting Balance Comments UE support for static and dynamic sitting balance Standing Balance Static Standing Balance Ability Fair Dynamic Standing Balance Ability Fair Standing Balance Comments Pt occ reaches for chair d/t LOB Mullins Fall Scale Copyright Permission PT-OP-H Neuro Start: 02/26/21 07:29 Freq: Status: Active Protocol: Document 02/26/21 14:31 MB (Rec: 02/26/21 16:03 MB [id number]) Sensation Evaluation Comments Summary Comments Pt reports chronic change in sensation both feet Coordination Evaluation Comments Coordination Comments B finger to nose altered d/t B tremor, more noticeable in right UE today Vital Signs Comments Vital Signs Comments Positive orthostatic assessment with BP and HR in LUE: supine 168/81, 73; standing 150/80, 76; standing 30 sec 140/76, 69; standing 1 min 30 sec 144/77, 70. Pt reports spinning type dizziness upon standing PT-OP-J Posture/Palpation/Skin Start: 02/26/21 07:29 Freq: Status: Active Protocol: Document 02/26/21 14:31 MB (Rec: 02/26/21 16:03 MB [id number]) Posture Evaluation Comments Posture Comments Standing with shoes donned: forward head with left tragus 2 1/2 inch in front of left AC joint, rounded left shoulder, decreased cervical and thoracic curvature, increased convexity right thoracic spine , right shoulder lower than the left with some scapular positioning differences, anterior tilt pelvis, head rests in mild right rotation and left SB PT-OP-K Range of Motion Start: 02/26/21 07:29 Freq: Status: Active Protocol: Document 02/26/21 14:31 MB (Rec: 02/26/21 16:03 MB [id number]) Cervical Spine Range of Motion Cervical Spine Active Testing Position Standing Flexion 40 Extension 30 Rotation Left 20 Rotation Right 35 Comments Increased tension right SCM and scalenes Shoulder Goniometric Range of Motion Shoulder ROM Limitations Comments B shoulder flexion and abduction grossly normal and pt reports pain 3-4/10 left shoulder PT-OP-M Strength Start: 02/26/21 07:29 Freq: Status: Active Protocol: Document 02/26/21 14:31 MB (Rec: 02/26/21 16:03 MB [id number]) Shoulder Strength Shoulder Manual Muscle Testing Left Comments NT in setting of injury and painful active movement Right Flexion 5 Normal Abduction (C5) 5 Normal Elbow/Forearm Strength Elbow and Forearm Manual Muscle Testing Left Comments NT in setting of left shoulder injury Right Flexion (C6) 5 Normal Extension (C7) 5 Normal Pronation 5 Normal Supination 5 Normal Wrist Strength Wrist Manual Muscle Testing Left Flexion (C7) 5 Normal Extension (C6) 4 Good Right Flexion (C7) 5 Normal Extension (C6) 5 Normal PT-OP-O Vestibular Start: 02/26/21 07:29 Freq: Status: Active Protocol: Document 02/26/21 14:31 MB (Rec: 02/26/21 16:03 MB [id number]) Vestibular Assessment Visual Testing Smooth Pursuits Horizontal Normal Smooth Pursuits Vertical Normal Gaze Evoked Nystagmus With Fixation Negative Convergence Test WNL Spontaneous Nystagmus Negative Positional Testing Марина-Hallpike Negative Left,Negative Right Rolling Test Negative Left,Negative Right Comments Vestibular Comments Pt reports dizziness with Roll Test moving from right to left and may have had one beat nystagmus but very difficult to see if it was PT-OP-Q Treatments Start: 02/26/21 07:29 Freq: Status: Active Protocol: Document 04/27/21 14:31 MB (Rec: 04/27/21 15:09 MB [id number]) Therapeutic Exercises Sitting Exercises Hung exercise Side left Comments Right hand assist for flexion, abduction, scaption x10 reps twice Standing Exercises Chin tuck and scapular retraction against wall Comments 10 reps x2 against wall Manual Therapy Treatment Taping KT to support left shoulder Comments I strip over AC joint anterior to posterior in vertical position, I strip to inhibit left traps Self-Care/Home Management Treatment Education Other Education Pt and : PT plan to include balance, manual work and leg strengthening and gentle left shoulder work as appropriate, ongoing hydration education and that they might hear from Dr. Foote's office after PT communication with him. Ed in benefits of KT and to take off if it is uncomfortable or itchy PT-OP-T Assessment and Plan Start: 02/26/21 07:29 Freq: Status: Active Protocol: Document 04/27/21 14:31 MB (Rec: 04/27/21 15:09 [id number]) Physical Therapy Assessment Rehab Potential Rehabilitation Potential Fair Evaluation Complexity Number of Personal Factors/Comorbidities 1-2 Number of Body Systems Impaired 3 Clinical Presentation at Evaluation Evolving Impairments Impairments Activity Tolerance,Balance, Coordination,Functional Activities,Functional Mobility ,Gait,Pain,Posture,ROM, Sensation,Soft Tissue Mobility ,Strength,Vestibular Other Concerns Fall Risk Yes Goals 3 Director [employer] Religious Activities Goal (LTG) Pt will perform HEP with I including postural, cervical, VOR, balance, and relaxation exercises to improve dizziness and balance by 06/02/21. 04/02/21: Pt is performing tandem gait, corner balance for SLS (PT did not give him this one), letter a exercise for VOR, head turns with gait and abdominal exercises LTG Duration 8 weeks 2 Nursing Home Goal (LTG) Pt will perform WNLs on FGA to decrease fall risk by 06/02/21 . 04/02/21: FGA score is 21/30 and pt has most trouble gait training with narrow AMADOU, eyes closed, head turns and walking backwards LTG Duration 8 weeks 1 Nursing Home Goal (LTG) Pt will deny falls to decrease risk of injury by 06/02/21. 04/02/21: Pt reports a fall when wacking weeds with his walking stick [place] last week. LTG Duration 8 weeks Assessment Summary Assessment Pt states that pt does not need vertigo assessment and treatment today. His head rests in gentle extension with attempted standing at wall with cranium and shoulder blades touching it today. PT does instruct pt in use of hung today and he does well with this and thinks that it is helpful. He is able to perform chin tuck and scapular retraction pretty well at the wall. Ongoing education and encouragement to pt and today. does not have many questions. Physical Therapy Plan Frequency and Duration Frequency of Treatment 2x/Week Duration of Treatment 8 weeks Plan of Care Start Date 04/02/21 Plan of Care End Date 06/04/21 Therapeutic Interventions Therapeutic Interventions Balance Training,Canalithic Repositioning,Coordination Training,Gait Training,Home Exercise Program,Joint Mobilizations,Manual Therapy, Neuromuscular Re-education, Patient/Caregiver Education, Self-Care/Home Management,Soft Tissue Mobilization,Taping, Therapeutic Activities, Therapeutic Exercises, Vestibular Rehabilitation Modalities Cold Pack/Ice Massage,Hot Packs Next Visit Focus/Plan Next Note Type Treatment Note Next Visit Plan Progress outdoors balance training, manual work, hip abduction and extension with band in standing, possibly self-massage SCM
--- NOTE | 2021-05-03 09:39 | PT.OTN ---
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) Dizziness and giddiness (05/03/21) Other reduced mobility (05/03/21) Physical Therapy Treatment Note PT-OP-A Visit Information Start: 02/26/21 07:29 Freq: Status: Active Protocol: Document 05/03/21 09:00 MB (Rec: 05/03/21 09:37 MB [id number]) Out-Patient Physical Therapy Visit Information Visit Information Visit Type Treatment Note Visit Note before KX Visit Start Time 09:00 Visit Stop Time 09:38 Total Visit Minutes 38 Visit Number 14 PT-OP-B Current Condition Start: 02/26/21 07:29 Freq: Status: Active Protocol: Document 02/26/21 14:31 MB (Rec: 02/26/21 14:49 MB [id number]) Current Condition History of Current Condition Onset Date 12/12/20 Current Complaints Balance issues come and go History of Current Condition Pt states that after his second COVID shot, he had a lot of dizziness and he was horizontal for two days. He had worst dizziness and nausea with eyes opened. He vomited a lot. Pt saw a neurologist. He was concerned about PD and the neurologist said it is not PD. He was told to keep doing the Carrie 3x/day which he has been doing. He was told that dizziness should go away within few months. He went to an opthamologist and was told that his vision is okay. He did see abnormal eye movement in his right eye. 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 He lost his balance nerve and auditory nerve with the surgery. 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 He had balance trouble after the surgery. Ultimately, his brain adjusted and he had normal balance and could ride a bike. He has ringing in his right ear. PMH: essential tremor, removed right acoustic neuroma, B foot numbness Pt states that he is getting better. He did have falls and injured his left shoulder. He always fell to the left. Pt reports left shoulder pain rated 3-4/10. Pt reports 5 falls in the last year and three in the last three months . He is just now feeling comfortable driving in town. Pt reports numbness and tingling in bottom of his feet only, vision changes with reports that his vision bounces around and roaring/ ringing in the ears, performance of sit-ups, chronic hearing change. Pt denies ear pressure, history of concussion or whiplash, weakness, sinus/allergy issues , trouble swallowing, recent overhead lifting, B12 deficiency, eye pressure changes, chirpractor treatment , TMJ/headache. Pt is afraid of falling, walking downstairs is a challenge, he cannot ride a bike and occ has to use his walking sticks. Walking in the dark is really a problem. Prior Treatments and Tests MR brain: some changes on the report but the impression says NAD X-ray left shoulder: downsloping acromion likely impinging the rotator cuff tendons, if clinically indicated, MRI may be helpful. Treatment Goals Patient/Caregiver Goals To improve balance and confidence with walking. PT-OP-C Subjective Start: 02/26/21 07:29 Freq: Status: Active Protocol: Document 05/03/21 09:00 MB (Rec: 05/03/21 09:37 MB [id number]) OP-PT Subjective Patient Comments Patient Comments Pt asks PT if she knows why he is seeing Dr. Foote after PT appointment today. Pt is most concerned about his balance. He wonders if he is getting better because he has good and bad days. He is doing the self-BPPV maneuver 3-4 times a week. Pt follows up with neurologist 05/22/21 about his balance and walking. PT-OP-D Balance Start: 02/26/21 07:29 Freq: Status: Active Protocol: Document 02/26/21 14:31 MB (Rec: 02/26/21 16:03 MB [id number]) OP-PT Balance Assessment Sitting Balance Static Sitting Balance Ability Fair Dynamic Sitting Balance Ability Fair Sitting Balance Comments UE support for static and dynamic sitting balance Standing Balance Static Standing Balance Ability Fair Dynamic Standing Balance Ability Fair Standing Balance Comments Pt occ reaches for chair d/t LOB Mullins Fall Scale Copyright Permission PT-OP-H Neuro Start: 02/26/21 07:29 Freq: Status: Active Protocol: Document 02/26/21 14:31 MB (Rec: 02/26/21 16:03 MB [id number]) Sensation Evaluation Comments Summary Comments Pt reports chronic change in sensation both feet Coordination Evaluation Comments Coordination Comments B finger to nose altered d/t B tremor, more noticeable in right UE today Vital Signs Comments Vital Signs Comments Positive orthostatic assessment with BP and HR in LUE: supine 168/81, 73; standing 150/80, 76; standing 30 sec 140/76, 69; standing 1 min 30 sec 144/77, 70. Pt reports spinning type dizziness upon standing PT-OP-J Posture/Palpation/Skin Start: 02/26/21 07:29 Freq: Status: Active Protocol: Document 02/26/21 14:31 MB (Rec: 02/26/21 16:03 MB [id number]) Posture Evaluation Comments Posture Comments Standing with shoes donned: forward head with left tragus 2 1/2 inch in front of left AC joint, rounded left shoulder, decreased cervical and thoracic curvature, increased convexity right thoracic spine , right shoulder lower than the left with some scapular positioning differences, anterior tilt pelvis, head rests in mild right rotation and left SB PT-OP-K Range of Motion Start: 02/26/21 07:29 Freq: Status: Active Protocol: Document 02/26/21 14:31 MB (Rec: 02/26/21 16:03 MB [id number]) Cervical Spine Range of Motion Cervical Spine Active Testing Position Standing Flexion 40 Extension 30 Rotation Left 20 Rotation Right 35 Comments Increased tension right SCM and scalenes Shoulder Goniometric Range of Motion Shoulder ROM Limitations Comments B shoulder flexion and abduction grossly normal and pt reports pain 3-4/10 left shoulder PT-OP-M Strength Start: 02/26/21 07:29 Freq: Status: Active Protocol: Document 02/26/21 14:31 MB (Rec: 02/26/21 16:03 MB [id number]) Shoulder Strength Shoulder Manual Muscle Testing Left Comments NT in setting of injury and painful active movement Right Flexion 5 Normal Abduction (C5) 5 Normal Elbow/Forearm Strength Elbow and Forearm Manual Muscle Testing Left Comments NT in setting of left shoulder injury Right Flexion (C6) 5 Normal Extension (C7) 5 Normal Pronation 5 Normal Supination 5 Normal Wrist Strength Wrist Manual Muscle Testing Left Flexion (C7) 5 Normal Extension (C6) 4 Good Right Flexion (C7) 5 Normal Extension (C6) 5 Normal PT-OP-O Vestibular Start: 02/26/21 07:29 Freq: Status: Active Protocol: Document 02/26/21 14:31 MB (Rec: 02/26/21 16:03 MB [id number]) Vestibular Assessment Visual Testing Smooth Pursuits Horizontal Normal Smooth Pursuits Vertical Normal Gaze Evoked Nystagmus With Fixation Negative Convergence Test WNL Spontaneous Nystagmus Negative Positional Testing Марина-Hallpike Negative Left,Negative Right Rolling Test Negative Left,Negative Right Comments Vestibular Comments Pt reports dizziness with Roll Test moving from right to left and may have had one beat nystagmus but very difficult to see if it was PT-OP-Q Treatments Start: 02/26/21 07:29 Freq: Status: Active Protocol: Document 05/03/21 09:00 MB (Rec: 05/03/21 09:37 [id number]) Neuro Re-Education Treatment Movement Re-Education Movement Re-education Activities Neurological screen to prepare to see Dr. Foote with comments written in assessment today Self-Care/Home Management Treatment Education Other Education Ed pt that he does not need to exercise more for left shoulder but can consider hung and recommend orthopedist consult Ed pt in ongoing hydration and overheating Spoke with pt after talking with doctor about his overall postural, shoulder, vestibular presentation, BPPV treatment challenges and role of cervical vasculature and testing PT-OP-T Assessment and Plan Start: 02/26/21 07:29 Freq: Status: Active Protocol: Document 05/03/21 09:00 MB (Rec: 05/03/21 09:37 [id number]) Physical Therapy Assessment Rehab Potential Rehabilitation Potential Fair Evaluation Complexity Number of Personal Factors/Comorbidities 1-2 Number of Body Systems Impaired 3 Clinical Presentation at Evaluation Evolving Impairments Impairments Activity Tolerance,Balance, Coordination,Functional Activities,Functional Mobility ,Gait,Pain,Posture,ROM, Sensation,Soft Tissue Mobility ,Strength,Vestibular Other Concerns Fall Risk Yes Goals 3 Production Cloth Cutter Goal (LTG) Pt will perform HEP with I including postural, cervical, VOR, balance, and relaxation exercises to improve dizziness and balance by 06/02/21. 04/02/21: Pt is performing tandem gait, corner balance for SLS (PT did not give him this one), letter a exercise for VOR, head turns with gait and abdominal exercises LTG Duration 8 weeks 2 Production Cloth Cutter Goal (LTG) Pt will perform WNLs on FGA to decrease fall risk by 06/02/21 . 04/02/21: FGA score is 21/30 and pt has most trouble gait training with narrow AMADOU, eyes closed, head turns and walking backwards LTG Duration 8 weeks 1 Production Cloth Cutter Goal (LTG) Pt will deny falls to decrease risk of injury by 06/02/21. 04/02/21: Pt reports a fall when wacking weeds with his walking stick [place] last week. LTG Duration 8 weeks Assessment Summary Assessment BP and HR in right UE sitting while neck being iced is 119/ 67, 66. O2 sats 97% left index finger. Neuro screen with PT today: slow rapid supination and pronation B, toe tap over opposite foot is slow B, slightly more effort LLE, B pupils respond equally to pen light, oculomotor screen and saccades normal. VOR cancellation is normal, ruling out central vestibular issue. B head thrust (with thrust to left) positive for hypofunction in setting of known vestibular hypofunction. Standing repeated cervical flexion and extension and rotation today with no dizziness in limited ROM. Of note, pt's AROM and posture are better today and pt is working on his posture. Romberg without LOB and pt does feel imbalanced. Romberg EC, pt feels nervous and no LOB, though he does start x1 d/t sway posteriorly. Pt requires OCC MED PHYSICIAN for tandem walking today. He is not particularly ataxic, just imbalanced. PT recommends orthopedist to comment about left shoulder and plan. 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 Certainly, his shoulder changes affect his cervical posture. Given dizziness looking up and when heated, PT recommends checking cervical vasculature and PT and Dr. Foote talk about this today and pt to head up to see Dr. Foote after PT. PT will con't for balance, vestibular and manual work. Physical Therapy Plan Frequency and Duration Frequency of Treatment 2x/Week Duration of Treatment 8 weeks Plan of Care Start Date 04/02/21 Plan of Care End Date 06/04/21 Therapeutic Interventions Therapeutic Interventions Balance Training,Canalithic Repositioning,Coordination Training,Gait Training,Home Exercise Program,Joint Mobilizations,Manual Therapy, Neuromuscular Re-education, Patient/Caregiver Education, Self-Care/Home Management,Soft Tissue Mobilization,Taping, Therapeutic Activities, Therapeutic Exercises, Vestibular Rehabilitation Modalities Cold Pack/Ice Massage,Hot Packs Next Visit Focus/Plan Next Note Type Treatment Note Next Visit Plan Progress balance training, manual work, hip abduction and extension with band in standing, review VOR exercises as needed
--- NOTE | 2021-05-15 12:59 | PT.OTN ---
Current Diagnoses Benign neoplasm of cranial nerves (05/15/21) Dizziness and giddiness (05/15/21) Other reduced mobility (05/15/21) Physical Therapy Treatment Note PT-OP-A Visit Information Start: 02/26/21 07:29 Freq: Status: Active Protocol: Document 05/15/21 12:19 MB (Rec: 05/15/21 12:53 MB [id number]) Out-Patient Physical Therapy Visit Information Visit Information Visit Type Treatment Note Visit Note before KX Visit Start Time 12:19 Visit Stop Time 12:57 Total Visit Minutes 38 Visit Number 15 PT-OP-B Current Condition Start: 02/26/21 07:29 Freq: Status: Active Protocol: Document 02/26/21 14:31 MB (Rec: 02/26/21 14:49 MB [id number]) Current Condition History of Current Condition Onset Date 12/12/20 Current Complaints Balance issues come and go History of Current Condition Pt states that after his second COVID shot, he had a lot of dizziness and he was horizontal for two days. He had worst dizziness and nausea with eyes opened. He vomited a lot. Pt saw a neurologist. He was concerned about PD and the neurologist said it is not PD. He was told to keep doing the Carrie 3x/day which he has been doing. He was told that dizziness should go away within few months. He went to an opthamologist and was told that his vision is okay. He did see abnormal eye movement in his right eye. 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 He lost his balance nerve and auditory nerve with the surgery. 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 He had balance trouble after the surgery. Ultimately, his brain adjusted and he had normal balance and could ride a bike. He has ringing in his right ear. PMH: essential tremor, removed right acoustic neuroma, B foot numbness Pt states that he is getting better. He did have falls and injured his left shoulder. He always fell to the left. Pt reports left shoulder pain rated 3-4/10. Pt reports 5 falls in the last year and three in the last three months . He is just now feeling comfortable driving in town. Pt reports numbness and tingling in bottom of his feet only, vision changes with reports that his vision bounces around and roaring/ ringing in the ears, performance of sit-ups, chronic hearing change. Pt denies ear pressure, history of concussion or whiplash, weakness, sinus/allergy issues , trouble swallowing, recent overhead lifting, B12 deficiency, eye pressure changes, chirpractor treatment , TMJ/headache. Pt is afraid of falling, walking downstairs is a challenge, he cannot ride a bike and occ has to use his walking sticks. Walking in the dark is really a problem. Prior Treatments and Tests MR brain: some changes on the report but the impression says NAD X-ray left shoulder: downsloping acromion likely impinging the rotator cuff tendons, if clinically indicated, MRI may be helpful. Treatment Goals Patient/Caregiver Goals To improve balance and confidence with walking. PT-OP-C Subjective Start: 02/26/21 07:29 Freq: Status: Active Protocol: Document 05/15/21 12:19 MB (Rec: 05/15/21 12:53 MB [id number]) OP-PT Subjective Patient Comments Patient Comments Pt saw Dr. Foote (PT reviewed note) and he gave pt a couple of neck exercises. Pt saw Dr. Lui about his left shoulder . He was told that he does not need surgery and just needs PT. Pt has had two good days and a few days ago, he had a rougher day. He felt imbalanced and insecure like he might fall. He is performing Semont Maneuver, SLS and tandem walking. Pt would like to work on balance today. PT-OP-D Balance Start: 02/26/21 07:29 Freq: Status: Active Protocol: Document 02/26/21 14:31 MB (Rec: 02/26/21 16:03 MB [id number]) OP-PT Balance Assessment Sitting Balance Static Sitting Balance Ability Fair Dynamic Sitting Balance Ability Fair Sitting Balance Comments UE support for static and dynamic sitting balance Standing Balance Static Standing Balance Ability Fair Dynamic Standing Balance Ability Fair Standing Balance Comments Pt occ reaches for chair d/t LOB Mullins Fall Scale Copyright Permission PT-OP-H Neuro Start: 02/26/21 07:29 Freq: Status: Active Protocol: Document 02/26/21 14:31 MB (Rec: 02/26/21 16:03 MB [id number]) Sensation Evaluation Comments Summary Comments Pt reports chronic change in sensation both feet Coordination Evaluation Comments Coordination Comments B finger to nose altered d/t B tremor, more noticeable in right UE today Vital Signs Comments Vital Signs Comments Positive orthostatic assessment with BP and HR in LUE: supine 168/81, 73; standing 150/80, 76; standing 30 sec 140/76, 69; standing 1 min 30 sec 144/77, 70. Pt reports spinning type dizziness upon standing PT-OP-J Posture/Palpation/Skin Start: 02/26/21 07:29 Freq: Status: Active Protocol: Document 02/26/21 14:31 MB (Rec: 02/26/21 16:03 MB [id number]) Posture Evaluation Comments Posture Comments Standing with shoes donned: forward head with left tragus 2 1/2 inch in front of left AC joint, rounded left shoulder, decreased cervical and thoracic curvature, increased convexity right thoracic spine , right shoulder lower than the left with some scapular positioning differences, anterior tilt pelvis, head rests in mild right rotation and left SB PT-OP-K Range of Motion Start: 02/26/21 07:29 Freq: Status: Active Protocol: Document 02/26/21 14:31 MB (Rec: 02/26/21 16:03 MB [id number]) Cervical Spine Range of Motion Cervical Spine Active Testing Position Standing Flexion 40 Extension 30 Rotation Left 20 Rotation Right 35 Comments Increased tension right SCM and scalenes Shoulder Goniometric Range of Motion Shoulder ROM Limitations Comments B shoulder flexion and abduction grossly normal and pt reports pain 3-4/10 left shoulder PT-OP-M Strength Start: 02/26/21 07:29 Freq: Status: Active Protocol: Document 02/26/21 14:31 MB (Rec: 02/26/21 16:03 MB [id number]) Shoulder Strength Shoulder Manual Muscle Testing Left Comments NT in setting of injury and painful active movement Right Flexion 5 Normal Abduction (C5) 5 Normal Elbow/Forearm Strength Elbow and Forearm Manual Muscle Testing Left Comments NT in setting of left shoulder injury Right Flexion (C6) 5 Normal Extension (C7) 5 Normal Pronation 5 Normal Supination 5 Normal Wrist Strength Wrist Manual Muscle Testing Left Flexion (C7) 5 Normal Extension (C6) 4 Good Right Flexion (C7) 5 Normal Extension (C6) 5 Normal PT-OP-O Vestibular Start: 02/26/21 07:29 Freq: Status: Active Protocol: Document 02/26/21 14:31 MB (Rec: 02/26/21 16:03 MB [id number]) Vestibular Assessment Visual Testing Smooth Pursuits Horizontal Normal Smooth Pursuits Vertical Normal Gaze Evoked Nystagmus With Fixation Negative Convergence Test WNL Spontaneous Nystagmus Negative Positional Testing Марина-Hallpike Negative Left,Negative Right Rolling Test Negative Left,Negative Right Comments Vestibular Comments Pt reports dizziness with Roll Test moving from right to left and may have had one beat nystagmus but very difficult to see if it was PT-OP-Q Treatments Start: 02/26/21 07:29 Freq: Status: Active Protocol: Document 05/15/21 12:19 MB (Rec: 05/15/21 12:53 MB [id number]) Neuro Re-Education Treatment Balance Activities Corner balance Comments Romberg EO at lesat 30 sec; EC for at least 30 sec and pt with increased sway and this will be a good exercise for home (in corner) Tandem standing is too hard and so changed to partial tandem--both feet SLS pt is unable to flex unweighted leg up and so did not perform this one. FGA tasks Comments Right finger on wall: tandem walking, backward walking, right and left and up and down head turns, cues to slow down and work on form. Ed to not press too much into right finger Vestibular Rehabilitation DVA testing and exercises Comments Pt standing holding letter a with left hand: head opposite eyes horizontal and vertical, eyes tracking letter up and down and horizontally, convergence. Pt using left arm as long as possible before it gets tired and then changes to right hand. PT-OP-T Assessment and Plan Start: 02/26/21 07:29 Freq: Status: Active Protocol: Document 05/15/21 12:19 MB (Rec: 05/15/21 12:53 MB [id number]) Physical Therapy Assessment Rehab Potential Rehabilitation Potential Fair Evaluation Complexity Number of Personal Factors/Comorbidities 1-2 Number of Body Systems Impaired 3 Clinical Presentation at Evaluation Evolving Impairments Impairments Activity Tolerance,Balance, Coordination,Functional Activities,Functional Mobility ,Gait,Pain,Posture,ROM, Sensation,Soft Tissue Mobility ,Strength,Vestibular Other Concerns Fall Risk Yes Goals 3 Senior Care Goal (LTG) Pt will perform HEP with I including postural, cervical, VOR, balance, and relaxation exercises to improve dizziness and balance by 06/02/21. 04/02/21: Pt is performing tandem gait, corner balance for SLS (PT did not give him this one), letter a exercise for VOR, head turns with gait and abdominal exercises LTG Duration 8 weeks 2 Bar Machine Operator Production Goal (LTG) Pt will perform WNLs on FGA to decrease fall risk by 06/02/21 . 04/02/21: FGA score is 21/30 and pt has most trouble gait training with narrow AMADOU, eyes closed, head turns and walking backwards LTG Duration 8 weeks 1 Bar Machine Operator Production Goal (LTG) Pt will deny falls to decrease risk of injury by 06/02/21. 04/02/21: Pt reports a fall when wacking weeds with his walking stick on [place] last week. LTG Duration 8 weeks Assessment Summary Assessment Progressed balance exercises for home today and provided write up handout and asked pt to stop any balance exercises he was doing on his own that PT has not given him d/t PT tailored these exercises today for him. Progressed VOR exercises in standing today and may benefit from eye chart exercise in the future. Physical Therapy Plan Frequency and Duration Frequency of Treatment 2x/Week Duration of Treatment 8 weeks Plan of Care Start Date 04/02/21 Plan of Care End Date 06/04/21 Therapeutic Interventions Therapeutic Interventions Balance Training,Canalithic Repositioning,Coordination Training,Gait Training,Home Exercise Program,Joint Mobilizations,Manual Therapy, Neuromuscular Re-education, Patient/Caregiver Education, Self-Care/Home Management,Soft Tissue Mobilization,Taping, Therapeutic Activities, Therapeutic Exercises, Vestibular Rehabilitation Modalities Cold Pack/Ice Massage,Hot Packs Next Visit Focus/Plan Next Note Type Treatment Note Next Visit Plan Progress shoulder exercises-- pool noodle and also standing band exercises, balance training, manual work, hip abduction and extension with band in standing, consider VOR eye chart exercise
--- NOTE | 2021-05-22 09:46 | PT.OTN ---
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) Dizziness and giddiness (05/22/21) Other reduced mobility (05/22/21) Physical Therapy Treatment Note PT-OP-A Visit Information Start: 02/26/21 07:29 Freq: Status: Active Protocol: Document 05/22/21 09:01 MB (Rec: 05/22/21 09:36 MB [id number]) Out-Patient Physical Therapy Visit Information Visit Information Visit Type Treatment Note Visit Note before KX Visit Start Time 09:01 Visit Stop Time 09:45 Total Visit Minutes 44 Visit Number 16 PT-OP-B Current Condition Start: 02/26/21 07:29 Freq: Status: Active Protocol: Document 02/26/21 14:31 MB (Rec: 02/26/21 14:49 MB [id number]) Current Condition History of Current Condition Onset Date 12/12/20 Current Complaints Balance issues come and go History of Current Condition Pt states that after his second COVID shot, he had a lot of dizziness and he was horizontal for two days. He had worst dizziness and nausea with eyes opened. He vomited a lot. Pt saw a neurologist. He was concerned about PD and the neurologist said it is not PD. He was told to keep doing the [place] 3x/day which he has been doing. He was told that dizziness should go away within few months. He went to an opthamologist and was told that his vision is okay. He did see abnormal eye movement in his right eye. 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 He lost his balance nerve and auditory nerve with the surgery. 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 He had balance trouble after the surgery. Ultimately, his brain adjusted and he had normal balance and could ride a bike. He has ringing in his right ear. PMH: essential tremor, removed right acoustic neuroma, B foot numbness Pt states that he is getting better. He did have falls and injured his left shoulder. He always fell to the left. Pt reports left shoulder pain rated 3-4/10. Pt reports 5 falls in the last year and three in the last three months . He is just now feeling comfortable driving in town. Pt reports numbness and tingling in bottom of his feet only, vision changes with reports that his vision bounces around and roaring/ ringing in the ears, performance of sit-ups, chronic hearing change. Pt denies ear pressure, history of concussion or whiplash, weakness, sinus/allergy issues , trouble swallowing, recent overhead lifting, B12 deficiency, eye pressure changes, chirpractor treatment , TMJ/headache. Pt is afraid of falling, walking downstairs is a challenge, he cannot ride a bike and occ has to use his walking sticks. Walking in the dark is really a problem. Prior Treatments and Tests MR brain: some changes on the report but the impression says NAD X-ray left shoulder: downsloping acromion likely impinging the rotator cuff tendons, if clinically indicated, MRI may be helpful. Treatment Goals Patient/Caregiver Goals To improve balance and confidence with walking. PT-OP-C Subjective Start: 02/26/21 07:29 Freq: Status: Active Protocol: Document 05/22/21 09:01 MB (Rec: 05/22/21 09:36 MB [id number]) OP-PT Subjective Patient Comments Patient Comments Pt states that balance has gone well. He has gotten on a bicycle and it went okay. Pt sees neurologist today for 3 month follow-up after cervical MRI and neuropathy testing. PT-OP-D Balance Start: 02/26/21 07:29 Freq: Status: Active Protocol: Document 02/26/21 14:31 MB (Rec: 02/26/21 16:03 MB [id number]) OP-PT Balance Assessment Sitting Balance Static Sitting Balance Ability Fair Dynamic Sitting Balance Ability Fair Sitting Balance Comments UE support for static and dynamic sitting balance Standing Balance Static Standing Balance Ability Fair Dynamic Standing Balance Ability Fair Standing Balance Comments Pt occ reaches for chair d/t LOB Mullins Fall Scale Copyright Permission PT-OP-H Neuro Start: 02/26/21 07:29 Freq: Status: Active Protocol: Document 02/26/21 14:31 MB (Rec: 02/26/21 16:03 MB [id number]) Sensation Evaluation Comments Summary Comments Pt reports chronic change in sensation both feet Coordination Evaluation Comments Coordination Comments B finger to nose altered d/t B tremor, more noticeable in right UE today Vital Signs Comments Vital Signs Comments Positive orthostatic assessment with BP and HR in LUE: supine 168/81, 73; standing 150/80, 76; standing 30 sec 140/76, 69; standing 1 min 30 sec 144/77, 70. Pt reports spinning type dizziness upon standing PT-OP-J Posture/Palpation/Skin Start: 02/26/21 07:29 Freq: Status: Active Protocol: Document 02/26/21 14:31 MB (Rec: 02/26/21 16:03 MB [id number]) Posture Evaluation Comments Posture Comments Standing with shoes donned: forward head with left tragus 2 1/2 inch in front of left AC joint, rounded left shoulder, decreased cervical and thoracic curvature, increased convexity right thoracic spine , right shoulder lower than the left with some scapular positioning differences, anterior tilt pelvis, head rests in mild right rotation and left SB PT-OP-K Range of Motion Start: 02/26/21 07:29 Freq: Status: Active Protocol: Document 02/26/21 14:31 MB (Rec: 02/26/21 16:03 MB [id number]) Cervical Spine Range of Motion Cervical Spine Active Testing Position Standing Flexion 40 Extension 30 Rotation Left 20 Rotation Right 35 Comments Increased tension right SCM and scalenes Shoulder Goniometric Range of Motion Shoulder ROM Limitations Comments B shoulder flexion and abduction grossly normal and pt reports pain 3-4/10 left shoulder PT-OP-M Strength Start: 02/26/21 07:29 Freq: Status: Active Protocol: Document 02/26/21 14:31 MB (Rec: 02/26/21 16:03 MB [id number]) Shoulder Strength Shoulder Manual Muscle Testing Left Comments NT in setting of injury and painful active movement Right Flexion 5 Normal Abduction (C5) 5 Normal Elbow/Forearm Strength Elbow and Forearm Manual Muscle Testing Left Comments NT in setting of left shoulder injury Right Flexion (C6) 5 Normal Extension (C7) 5 Normal Pronation 5 Normal Supination 5 Normal Wrist Strength Wrist Manual Muscle Testing Left Flexion (C7) 5 Normal Extension (C6) 4 Good Right Flexion (C7) 5 Normal Extension (C6) 5 Normal PT-OP-O Vestibular Start: 02/26/21 07:29 Freq: Status: Active Protocol: Document 02/26/21 14:31 MB (Rec: 02/26/21 16:03 MB [id number]) Vestibular Assessment Visual Testing Smooth Pursuits Horizontal Normal Smooth Pursuits Vertical Normal Gaze Evoked Nystagmus With Fixation Negative Convergence Test WNL Spontaneous Nystagmus Negative Positional Testing Марина-Hallpike Negative Left,Negative Right Rolling Test Negative Left,Negative Right Comments Vestibular Comments Pt reports dizziness with Roll Test moving from right to left and may have had one beat nystagmus but very difficult to see if it was PT-OP-Q Treatments Start: 02/26/21 07:29 Freq: Status: Active Protocol: Document 05/22/21 09:01 MB (Rec: 05/22/21 09:36 [id number]) Therapeutic Exercises Sitting Exercises Ankle eversion and DF Side bilateral Comments Level 2 band too easy, given level 3 Standing Exercises Hip abduction crab walk and backwards walk Side bilateral Comments Level 2 band around ankles Multifidi engaged, heel raises Side bilateral Comments Level 2 band at side, cues to raise heels 1,2,3 and lower 4, 5,6 Shoulder ER Side bilateral Comments Level 2 band and elbow at side Scapular retraction with arms straight Side bilateral Comments Level 2 band and cues to keep shoulders down PT-OP-T Assessment and Plan Start: 02/26/21 07:29 Freq: Status: Active Protocol: Document 05/22/21 09:01 MB (Rec: 05/22/21 09:36 [id number]) Physical Therapy Assessment Rehab Potential Rehabilitation Potential Fair Evaluation Complexity Number of Personal Factors/Comorbidities 1-2 Number of Body Systems Impaired 3 Clinical Presentation at Evaluation Evolving Impairments Impairments Activity Tolerance,Balance, Coordination,Functional Activities,Functional Mobility ,Gait,Pain,Posture,ROM, Sensation,Soft Tissue Mobility ,Strength,Vestibular Other Concerns Fall Risk Yes Goals 3 Detention Goal (LTG) Pt will perform HEP with I including postural, cervical, VOR, balance, and relaxation exercises to improve dizziness and balance by 06/02/21. 04/02/21: Pt is performing tandem gait, corner balance for SLS (PT did not give him this one), letter a exercise for VOR, head turns with gait and abdominal exercises LTG Duration 8 weeks 2 Rn Float Goal (LTG) Pt will perform WNLs on FGA to decrease fall risk by 06/02/21 . 04/02/21: FGA score is 21/30 and pt has most trouble gait training with narrow AMADOU, eyes closed, head turns and walking backwards LTG Duration 8 weeks 1 Rn Float Goal (LTG) Pt will deny falls to decrease risk of injury by 06/02/21. 04/02/21: Pt reports a fall when wacking weeds with his walking stick [place] last week. LTG Duration 8 weeks Physical Therapy Plan Frequency and Duration Frequency of Treatment 2x/Week Duration of Treatment 8 weeks Plan of Care Start Date 04/02/21 Plan of Care End Date 06/04/21 Therapeutic Interventions Therapeutic Interventions Balance Training,Canalithic Repositioning,Coordination Training,Gait Training,Home Exercise Program,Joint Mobilizations,Manual Therapy, Neuromuscular Re-education, Patient/Caregiver Education, Self-Care/Home Management,Soft Tissue Mobilization,Taping, Therapeutic Activities, Therapeutic Exercises, Vestibular Rehabilitation Modalities Cold Pack/Ice Massage,Hot Packs Next Visit Focus/Plan Next Note Type Treatment Note Next Visit Plan Check VOR again and consider eye chart test and ex
--- NOTE | 2021-05-31 09:41 | PT.OTN ---
Current Diagnoses Benign neoplasm of cranial nerves (05/31/21) Dizziness and giddiness (05/31/21) Other reduced mobility (05/31/21) Physical Therapy Treatment Note PT-OP-A Visit Information Start: 02/26/21 07:29 Freq: Status: Active Protocol: Document 05/31/21 09:02 MB (Rec: 05/31/21 09:40 MB [id number]) Out-Patient Physical Therapy Visit Information Visit Information Visit Type Treatment Note Visit Note before KX Visit Start Time 09:02 Visit Stop Time 09:40 Total Visit Minutes 38 Visit Number 17 PT-OP-B Current Condition Start: 02/26/21 07:29 Freq: Status: Active Protocol: Document 02/26/21 14:31 MB (Rec: 02/26/21 14:49 MB [id number]) Current Condition History of Current Condition Onset Date 12/12/20 Current Complaints Balance issues come and go History of Current Condition Pt states that after his second COVID shot, he had a lot of dizziness and he was horizontal for two days. He had worst dizziness and nausea with eyes opened. He vomited a lot. Pt saw a neurologist. He was concerned about PD and the neurologist said it is not PD. He was told to keep doing the [place] 3x/day which he has been doing. He was told that dizziness should go away within few months. He went to an opthamologist and was told that his vision is okay. He did see abnormal eye movement in his right eye. 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 He lost his balance nerve and auditory nerve with the surgery. 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 He had balance trouble after the surgery. Ultimately, his brain adjusted and he had normal balance and could ride a bike. He has ringing in his right ear. PMH: essential tremor, removed right acoustic neuroma, B foot numbness Pt states that he is getting better. He did have falls and injured his left shoulder. He always fell to the left. Pt reports left shoulder pain rated 3-4/10. Pt reports 5 falls in the last year and three in the last three months . He is just now feeling comfortable driving in town. Pt reports numbness and tingling in bottom of his feet only, vision changes with reports that his vision bounces around and roaring/ ringing in the ears, performance of sit-ups, chronic hearing change. Pt denies ear pressure, history of concussion or whiplash, weakness, sinus/allergy issues , trouble swallowing, recent overhead lifting, B12 deficiency, eye pressure changes, chirpractor treatment , TMJ/headache. Pt is afraid of falling, walking downstairs is a challenge, he cannot ride a bike and occ has to use his walking sticks. Walking in the dark is really a problem. Prior Treatments and Tests MR brain: some changes on the report but the impression says NAD X-ray left shoulder: downsloping acromion likely impinging the rotator cuff tendons, if clinically indicated, MRI may be helpful. Treatment Goals Patient/Caregiver Goals To improve balance and confidence with walking. PT-OP-C Subjective Start: 02/26/21 07:29 Freq: Status: Active Protocol: Document 05/31/21 09:02 MB (Rec: 05/31/21 09:40 MB [id number]) OP-PT Subjective Patient Comments Patient Comments Pt was doing something yesterday and pulled his left shoulder and it popped and it hurt. It still hurts. He wants to work on balance. He is working on balance exercises everyday at home. He has most difficulty with walking and looking up and down. He was picking potatoes yesterday and was up and down and that was challenging. He did the [place] and it stabilized him. He thinks he is not having the problem right now. He rode his bike to PT. Sometimes when he wakes up in the morning, his eyes are bouncing around and he does the eye exercises and that stabilizes him. PT-OP-D Balance Start: 02/26/21 07:29 Freq: Status: Active Protocol: Document 02/26/21 14:31 MB (Rec: 02/26/21 16:03 MB [id number]) OP-PT Balance Assessment Sitting Balance Static Sitting Balance Ability Fair Dynamic Sitting Balance Ability Fair Sitting Balance Comments UE support for static and dynamic sitting balance Standing Balance Static Standing Balance Ability Fair Dynamic Standing Balance Ability Fair Standing Balance Comments Pt occ reaches for chair d/t LOB Mullins Fall Scale Copyright Permission PT-OP-H Neuro Start: 02/26/21 07:29 Freq: Status: Active Protocol: Document 02/26/21 14:31 MB (Rec: 02/26/21 16:03 MB [id number]) Sensation Evaluation Comments Summary Comments Pt reports chronic change in sensation both feet Coordination Evaluation Comments Coordination Comments B finger to nose altered d/t B tremor, more noticeable in right UE today Vital Signs Comments Vital Signs Comments Positive orthostatic assessment with BP and HR in LUE: supine 168/81, 73; standing 150/80, 76; standing 30 sec 140/76, 69; standing 1 min 30 sec 144/77, 70. Pt reports spinning type dizziness upon standing PT-OP-J Posture/Palpation/Skin Start: 02/26/21 07:29 Freq: Status: Active Protocol: Document 02/26/21 14:31 MB (Rec: 02/26/21 16:03 MB [id number]) Posture Evaluation Comments Posture Comments Standing with shoes donned: forward head with left tragus 2 1/2 inch in front of left AC joint, rounded left shoulder, decreased cervical and thoracic curvature, increased convexity right thoracic spine , right shoulder lower than the left with some scapular positioning differences, anterior tilt pelvis, head rests in mild right rotation and left SB PT-OP-K Range of Motion Start: 02/26/21 07:29 Freq: Status: Active Protocol: Document 02/26/21 14:31 MB (Rec: 02/26/21 16:03 MB [id number]) Cervical Spine Range of Motion Cervical Spine Active Testing Position Standing Flexion 40 Extension 30 Rotation Left 20 Rotation Right 35 Comments Increased tension right SCM and scalenes Shoulder Goniometric Range of Motion Shoulder ROM Limitations Comments B shoulder flexion and abduction grossly normal and pt reports pain 3-4/10 left shoulder PT-OP-M Strength Start: 02/26/21 07:29 Freq: Status: Active Protocol: Document 02/26/21 14:31 MB (Rec: 02/26/21 16:03 MB [id number]) Shoulder Strength Shoulder Manual Muscle Testing Left Comments NT in setting of injury and painful active movement Right Flexion 5 Normal Abduction (C5) 5 Normal Elbow/Forearm Strength Elbow and Forearm Manual Muscle Testing Left Comments NT in setting of left shoulder injury Right Flexion (C6) 5 Normal Extension (C7) 5 Normal Pronation 5 Normal Supination 5 Normal Wrist Strength Wrist Manual Muscle Testing Left Flexion (C7) 5 Normal Extension (C6) 4 Good Right Flexion (C7) 5 Normal Extension (C6) 5 Normal PT-OP-O Vestibular Start: 02/26/21 07:29 Freq: Status: Active Protocol: Document 02/26/21 14:31 MB (Rec: 02/26/21 16:03 MB [id number]) Vestibular Assessment Visual Testing Smooth Pursuits Horizontal Normal Smooth Pursuits Vertical Normal Gaze Evoked Nystagmus With Fixation Negative Convergence Test WNL Spontaneous Nystagmus Negative Positional Testing Марина-Hallpike Negative Left,Negative Right Rolling Test Negative Left,Negative Right Comments Vestibular Comments Pt reports dizziness with Roll Test moving from right to left and may have had one beat nystagmus but very difficult to see if it was PT-OP-Q Treatments Start: 02/26/21 07:29 Freq: Status: Active Protocol: Document 05/31/21 09:02 MB (Rec: 05/31/21 09:40 MB [id number]) Neuro Re-Education Treatment Vestibular Rehabilitation DVA testing and exercises Comments Pt standing in [place] and looking at small eye chart 10' away--can read full chart without trouble. Focusing on little E second from bottom, horizontal head turns. Multiple practices and cues to keep neck loose, perform small head turns and keep E clear. Vertical head turns is easier and pt states that E is staying clear. Progression: chair at side and partial tandem and pt has to hold onto chair with left hand often. Tried vertical head turns first. He cannot perform horizontal head turns with tandem and so he will do [place] for horizontal head turns Other Activities Gait balance exercises, FGA in hallway for home Comments Finger on wall: walking tandem , walking backwards, walking with head turns, added walking with eyes closed x5 reps each . Practiced many times as a circuit and then many with EC and he needs to walk with wall on each side for EC to work on all balance systems given right ear deafness and schwanoma removal PT-OP-T Assessment and Plan Start: 02/26/21 07:29 Freq: Status: Active Protocol: Document 05/31/21 09:02 MB (Rec: 05/31/21 09:40 MB [id number]) Physical Therapy Assessment Rehab Potential Rehabilitation Potential Fair Evaluation Complexity Number of Personal Factors/Comorbidities 1-2 Number of Body Systems Impaired 3 Clinical Presentation at Evaluation Evolving Impairments Impairments Activity Tolerance,Balance, Coordination,Functional Activities,Functional Mobility ,Gait,Pain,Posture,ROM, Sensation,Soft Tissue Mobility ,Strength,Vestibular Other Concerns Fall Risk Yes Goals 3 Intermediate Goal (LTG) Pt will perform HEP with I including postural, cervical, VOR, balance, and relaxation exercises to improve dizziness and balance by 06/02/21. 04/02/21: Pt is performing tandem gait, corner balance for SLS (PT did not give him this one), letter a exercise for VOR, head turns with gait and abdominal exercises LTG Duration 8 weeks 2 Intermediate Goal (LTG) Pt will perform WNLs on FGA to decrease fall risk by 06/02/21 . 04/02/21: FGA score is 21/30 and pt has most trouble gait training with narrow AMADOU, eyes closed, head turns and walking backwards LTG Duration 8 weeks 1 Intermediate Goal (LTG) Pt will deny falls to decrease risk of injury by 06/02/21. 04/02/21: Pt reports a fall when wacking weeds with his walking stick on [place] last week. LTG Duration 8 weeks Assessment Summary Assessment Progressed balance exercises today and ed pt that he does not have to perform all balance exercises everyday, to pick the hardest and to alternate. Ed to perform at least one VOR and one balance exercise everyday. Walking exercises are really challenging today, especially with EC and extensive practice to make sure he does this safely at home. Physical Therapy Plan Frequency and Duration Frequency of Treatment 2x/Week Duration of Treatment 8 weeks Plan of Care Start Date 04/02/21 Plan of Care End Date 06/04/21 Therapeutic Interventions Therapeutic Interventions Balance Training,Canalithic Repositioning,Coordination Training,Gait Training,Home Exercise Program,Joint Mobilizations,Manual Therapy, Neuromuscular Re-education, Patient/Caregiver Education, Self-Care/Home Management,Soft Tissue Mobilization,Taping, Therapeutic Activities, Therapeutic Exercises, Vestibular Rehabilitation Modalities Cold Pack/Ice Massage,Hot Packs Next Visit Focus/Plan Next Note Type Progress Note Next Visit Plan Outdoor walking and balance
--- NOTE | 2021-06-06 15:24 | PT.OTN ---
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) Dizziness and giddiness (06/06/21) Other reduced mobility (06/06/21) Physical Therapy Treatment Note PT-OP-A Visit Information Start: 02/26/21 07:29 Freq: Status: Active Protocol: Document 06/06/21 14:30 MB (Rec: 06/06/21 15:18 MB [id number]) Out-Patient Physical Therapy Visit Information Visit Information Visit Type Treatment Note Visit Note before KX Visit Start Time 14:30 Visit Stop Time 15:10 Total Visit Minutes 40 Visit Number 18 PT-OP-B Current Condition Start: 02/26/21 07:29 Freq: Status: Active Protocol: Document 02/26/21 14:31 MB (Rec: 02/26/21 14:49 MB [id number]) Current Condition History of Current Condition Onset Date 12/12/20 Current Complaints Balance issues come and go History of Current Condition Pt states that after his second COVID shot, he had a lot of dizziness and he was horizontal for two days. He had worst dizziness and nausea with eyes opened. He vomited a lot. Pt saw a neurologist. He was concerned about PD and the neurologist said it is not PD. He was told to keep doing the [place] 3x/day which he has been doing. He was told that dizziness should go away within few months. He went to an opthamologist and was told that his vision is okay. He did see abnormal eye movement in his right eye. 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 He lost his balance nerve and auditory nerve with the surgery. 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 He had balance trouble after the surgery. Ultimately, his brain adjusted and he had normal balance and could ride a bike. He has ringing in his right ear. PMH: essential tremor, removed right acoustic neuroma, B foot numbness Pt states that he is getting better. He did have falls and injured his left shoulder. He always fell to the left. Pt reports left shoulder pain rated 3-4/10. Pt reports 5 falls in the last year and three in the last three months . He is just now feeling comfortable driving in town. Pt reports numbness and tingling in bottom of his feet only, vision changes with reports that his vision bounces around and roaring/ ringing in the ears, performance of sit-ups, chronic hearing change. Pt denies ear pressure, history of concussion or whiplash, weakness, sinus/allergy issues , trouble swallowing, recent overhead lifting, B12 deficiency, eye pressure changes, chirpractor treatment , TMJ/headache. Pt is afraid of falling, walking downstairs is a challenge, he cannot ride a bike and occ has to use his walking sticks. Walking in the dark is really a problem. Prior Treatments and Tests MR brain: some changes on the report but the impression says NAD X-ray left shoulder: downsloping acromion likely impinging the rotator cuff tendons, if clinically indicated, MRI may be helpful. Treatment Goals Patient/Caregiver Goals To improve balance and confidence with walking. PT-OP-C Subjective Start: 02/26/21 07:29 Freq: Status: Active Protocol: Document 06/06/21 14:30 MB (Rec: 06/06/21 15:18 MB [id number]) OP-PT Subjective Patient Comments Patient Comments Pt states that he had a setback over the weekend. He was out walking 2 miles from home with his walking sticks when a helicopter flew over and he looked straight up for a minute or minute and a half. It made him feel very imbalanced. He sat down and tried to do the [place] but could not find a place. He did the [place] at home and it was not very helpful. He had to walk home with walking sticks and it was difficult. He rode his bike today and does not think he should have done that . He went to swim and did breast stroke with his head up and he felt better. He is disappointed about the set back. On Friday, he had the fruit grader and used it to pick apples for two days and he had to look up and that was problematic. PT-OP-D Balance Start: 02/26/21 07:29 Freq: Status: Active Protocol: Document 02/26/21 14:31 MB (Rec: 02/26/21 16:03 MB [id number]) OP-PT Balance Assessment Sitting Balance Static Sitting Balance Ability Fair Dynamic Sitting Balance Ability Fair Sitting Balance Comments UE support for static and dynamic sitting balance Standing Balance Static Standing Balance Ability Fair Dynamic Standing Balance Ability Fair Standing Balance Comments Pt occ reaches for chair d/t ANANTH Mullins Fall Scale Copyright Permission PT-OP-H Neuro Start: 02/26/21 07:29 Freq: Status: Active Protocol: Document 02/26/21 14:31 MB (Rec: 02/26/21 16:03 MB [id number]) Sensation Evaluation Comments Summary Comments Pt reports chronic change in sensation both feet Coordination Evaluation Comments Coordination Comments B finger to nose altered d/t B tremor, more noticeable in right UE today Vital Signs Comments Vital Signs Comments Positive orthostatic assessment with BP and HR in LUE: supine 168/81, 73; standing 150/80, 76; standing 30 sec 140/76, 69; standing 1 min 30 sec 144/77, 70. Pt reports spinning type dizziness upon standing PT-OP-J Posture/Palpation/Skin Start: 02/26/21 07:29 Freq: Status: Active Protocol: Document 02/26/21 14:31 MB (Rec: 02/26/21 16:03 MB [id number]) Posture Evaluation Comments Posture Comments Standing with shoes donned: forward head with left tragus 2 1/2 inch in front of left AC joint, rounded left shoulder, decreased cervical and thoracic curvature, increased convexity right thoracic spine , right shoulder lower than the left with some scapular positioning differences, anterior tilt pelvis, head rests in mild right rotation and left SB PT-OP-K Range of Motion Start: 02/26/21 07:29 Freq: Status: Active Protocol: Document 02/26/21 14:31 MB (Rec: 02/26/21 16:03 MB [id number]) Cervical Spine Range of Motion Cervical Spine Active Testing Position Standing Flexion 40 Extension 30 Rotation Left 20 Rotation Right 35 Comments Increased tension right SCM and scalenes Shoulder Goniometric Range of Motion Shoulder ROM Limitations Comments B shoulder flexion and abduction grossly normal and pt reports pain 3-4/10 left shoulder PT-OP-M Strength Start: 02/26/21 07:29 Freq: Status: Active Protocol: Document 02/26/21 14:31 MB (Rec: 02/26/21 16:03 MB [id number]) Shoulder Strength Shoulder Manual Muscle Testing Left Comments NT in setting of injury and painful active movement Right Flexion 5 Normal Abduction (C5) 5 Normal Elbow/Forearm Strength Elbow and Forearm Manual Muscle Testing Left Comments NT in setting of left shoulder injury Right Flexion (C6) 5 Normal Extension (C7) 5 Normal Pronation 5 Normal Supination 5 Normal Wrist Strength Wrist Manual Muscle Testing Left Flexion (C7) 5 Normal Extension (C6) 4 Good Right Flexion (C7) 5 Normal Extension (C6) 5 Normal PT-OP-O Vestibular Start: 02/26/21 07:29 Freq: Status: Active Protocol: Document 02/26/21 14:31 MB (Rec: 02/26/21 16:03 MB [id number]) Vestibular Assessment Visual Testing Smooth Pursuits Horizontal Normal Smooth Pursuits Vertical Normal Gaze Evoked Nystagmus With Fixation Negative Convergence Test WNL Spontaneous Nystagmus Negative Positional Testing Марина-Hallpike Negative Left,Negative Right Rolling Test Negative Left,Negative Right Comments Vestibular Comments Pt reports dizziness with Roll Test moving from right to left and may have had one beat nystagmus but very difficult to see if it was PT-OP-Q Treatments Start: 02/26/21 07:29 Freq: Status: Active Protocol: Document 06/06/21 14:30 MB (Rec: 06/06/21 15:18 MB [id number]) Therapeutic Exercises Supine Exercises Buteyko breathing Comments Pt performs some at home Core progression Comments Pt is performing at home Sidelying Exercises Open book with elbows bent and rib breathing Comments Performs on left side today and no pain in left shoulder Sitting Exercises Ankle eversion and DF Comments Pt is performing at home Standing Exercises Hip abduction crab walk and backwards walk Comments Pt is performing at home Multifidi engaged, heel raises Comments Pt is performing at home Shoulder ER Comments Pt is performing at home Scapular retraction with arms straight Comments Pt is performing at home Chin tuck and scapular retraction against wall Comments Pt has been working on pt at home STM with racquet ball Standing Exercise Name Intrascapular muscles STM and then TrP hold and pt rotating head, TrP infra Side bilateral Comments and then ER and IR with ball on TrP Other Exercises HEP review Comments Performed this today Neuro Re-Education Treatment Balance Activities FGA Comments Pt performs today and scores 1 point better than last progress note. See goal for comments Self-Care/Home Management Treatment Education Other Education Re-add postural flexibility exercises to HEP including side lying open book with pect stretch, use of racquet ball for massage, increase hydration, ed that his cervical spine changes will limit extension and to make note of this and try to keep neck and shoulders loose and not spend a lot of time in neck extension. Ed in hydration. PT-OP-T Assessment and Plan Start: 02/26/21 07:29 Freq: Status: Active Protocol: Document 06/06/21 14:30 MB (Rec: 06/06/21 15:18 MB [id number]) Physical Therapy Assessment Rehab Potential Rehabilitation Potential Fair Evaluation Complexity Number of Personal Factors/Comorbidities 1-2 Number of Body Systems Impaired 3 Clinical Presentation at Evaluation Evolving Impairments Impairments Activity Tolerance,Balance, Coordination,Functional Activities,Functional Mobility ,Gait,Pain,Posture,ROM, Sensation,Soft Tissue Mobility ,Strength,Vestibular Other Concerns Fall Risk Yes Goals 3 Research Coordinator Goal (LTG) Pt will perform HEP with I including postural, cervical, VOR, balance, and relaxation exercises to improve dizziness and balance by 07/20/21. 06/06/21: Pt is performing progressive balance, postural, VOR, and LE strengthening exercises. He also has core exercises. LTG Duration 6 weeks 2 Nursing Home Goal (LTG) Pt will perform WNLs on FGA to decrease fall risk by . 06/06/21: FGA score is one point improved at 22/30. Pt with most trouble with tandem and walking with eyes closed. He con't with trouble with head turns (mildly so) and occ reaches for rail with steps and he does not have imbalance . 04/02/21: FGA score is 21/30 and pt has most trouble gait training with narrow AMADOU, eyes closed, head turns and walking backwards LTG Duration 6 weeks 1 Research Coordinator Goal (LTG) Pt will deny falls to decrease risk of injury by 06/02/21. 06/06/21: Met 04/02/21: Pt reports a fall when wacking weeds with his walking stick on [place] last week. LTG Duration 8 weeks Assessment Summary Assessment Pt has progressed towards HEP and FGA goals since progress note. He has not had a fall since starting PT. Pt's flare- up is due to cervical limitations and extensive ed today. He will benefit from con't PT for postural, balance and VOR training. Physical Therapy Plan Frequency and Duration Frequency of Treatment 1x/Week Duration of Treatment 6 weeks Plan of Care Start Date 06/06/21 Plan of Care End Date 07/20/21 Therapeutic Interventions Therapeutic Interventions Balance Training,Canalithic Repositioning,Coordination Training,Gait Training,Home Exercise Program,Joint Mobilizations,Manual Therapy, Neuromuscular Re-education, Patient/Caregiver Education, Self-Care/Home Management,Soft Tissue Mobilization,Taping, Therapeutic Activities, Therapeutic Exercises, Vestibular Rehabilitation Modalities Cold Pack/Ice Massage,Hot Packs Other Referrals/Consults Referrals/Consults Recommended Talk with Dr. Foote about whether or not he should get his vaccination booster given severity of reaction to second shot. Next Visit Focus/Plan Next Note Type Treatment Note Next Visit Plan Practice balance and gait outside, further gentle cervical exercises, pect stretch in hook lying with knees bent
--- NOTE | 2021-06-06 15:25 | PT.OPPOC ---
Addendum entered and electronically signed by Frida Polo PT 06/22/21 10:43: Resend to Dr. Foote Original Note: Physical, Occupational & Speech Therapy At 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 Address: [address] [place] [address] Email: Plan Of Care PT-OP-T Assessment and Plan Start: 02/26/21 07:29 Freq: Status: Active Protocol: Document 06/06/21 14:30 MB (Rec: 06/06/21 15:18 MB [id number]) Physical Therapy Assessment Rehab Potential Rehabilitation Potential Fair Evaluation Complexity Number of Personal Factors/Comorbidities 1-2 Number of Body Systems Impaired 3 Clinical Presentation at Evaluation Evolving Impairments Impairments Activity Tolerance,Balance, Coordination,Functional Activities,Functional Mobility ,Gait,Pain,Posture,ROM, Sensation,Soft Tissue Mobility ,Strength,Vestibular Other Concerns Fall Risk Yes Goals 3 Reading Interventionist Goal (LTG) Pt will perform HEP with I including postural, cervical, VOR, balance, and relaxation exercises to improve dizziness and balance by 07/20/21. 06/06/21: Pt is performing progressive balance, postural, VOR, and LE strengthening exercises. He also has core exercises. LTG Duration 6 weeks 2 Reading Interventionist Goal (LTG) Pt will perform WNLs on FGA to decrease fall risk by . 06/06/21: FGA score is one point improved at 22/30. Pt with most trouble with tandem and walking with eyes closed. He con't with trouble with head turns (mildly so) and occ reaches for rail with steps and he does not have imbalance . 04/02/21: FGA score is 21/30 and pt has most trouble gait training with narrow AMADOU, eyes closed, head turns and walking backwards LTG Duration 6 weeks 1 Reading Interventionist Goal (LTG) Pt will deny falls to decrease risk of injury by 06/02/21. 06/06/21: Met 04/02/21: Pt reports a fall when wacking weeds with [place] walking [place] last week. LTG Duration 8 weeks Assessment Summary Assessment Pt has progressed towards HEP and FGA goals since progress note. He has not had a fall since starting PT. Pt's flare- up is due to cervical limitations and extensive ed today. He will benefit from con't PT for postural, balance and VOR training. Physical Therapy Plan Frequency and Duration Frequency of Treatment 1x/Week Duration of Treatment 6 weeks Plan of Care Start Date 06/06/21 Plan of Care End Date 07/20/21 Therapeutic Interventions Therapeutic Interventions Balance Training,Canalithic Repositioning,Coordination Training,Gait Training,Home Exercise Program,Joint Mobilizations,Manual Therapy, Neuromuscular Re-education, Patient/Caregiver Education, Self-Care/Home Management,Soft Tissue Mobilization,Taping, Therapeutic Activities, Therapeutic Exercises, Vestibular Rehabilitation Modalities Cold Pack/Ice Massage,Hot Packs Other Referrals/Consults Referrals/Consults Recommended Talk with Dr. Foote about whether or not he should get his vaccination booster given severity of reaction to second shot. Next Visit Focus/Plan Next Note Type Treatment Note Next Visit Plan Practice balance and gait outside, further gentle cervical exercises, pect stretch in hook lying with knees bent Plan of Care Dates Plan of Care Start Date 06/06/21 Plan of Care End Date 07/20/21 Electronically Signed by: Frida Polo, PT 06/06/21 [id number] Please Sign and Return: I have reviewed this Plan of Care and certify that the skilled therapy services above are required to meet the patient?s needs. Physician Signature Date Printed Name and Credentials Clinical Instructor Signature Printed Name and Credentials
--- NOTE | 2021-06-12 09:54 | PT.OTN ---
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) Dizziness and giddiness (06/12/21) Other reduced mobility (06/12/21) Physical Therapy Treatment Note PT-OP-A Visit Information Start: 02/26/21 07:29 Freq: Status: Active Protocol: Document 06/12/21 09:03 MB (Rec: 06/12/21 09:08 MB [id number]) Out-Patient Physical Therapy Visit Information Visit Information Visit Type Treatment Note Visit Note before KX, KX next treatment Visit Start Time 09:03 Visit Stop Time 09:43 Total Visit Minutes 40 Visit Number 19 PT-OP-B Current Condition Start: 02/26/21 07:29 Freq: Status: Active Protocol: Document 02/26/21 14:31 MB (Rec: 02/26/21 14:49 MB [id number]) Current Condition History of Current Condition Onset Date 12/12/20 Current Complaints Balance issues come and go History of Current Condition Pt states that after his second COVID shot, he had a lot of dizziness and he was horizontal for two days. He had worst dizziness and nausea with eyes opened. He vomited a lot. Pt saw a neurologist. He was concerned about PD and the neurologist said it is not PD. He was told to keep doing the Carrie 3x/day which he has been doing. He was told that dizziness should go away within few months. He went to an opthamologist and was told that his vision is okay. He did see abnormal eye movement in his right eye. 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 He lost his balance nerve and auditory nerve with the surgery. 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 He had balance trouble after the surgery. Ultimately, his brain adjusted and he had normal balance and could ride a bike. He has ringing in his right ear. PMH: essential tremor, removed right acoustic neuroma, B foot numbness Pt states that he is getting better. He did have falls and injured his left shoulder. He always fell to the left. Pt reports left shoulder pain rated 3-4/10. Pt reports 5 falls in the last year and three in the last three months . He is just now feeling comfortable driving in town. Pt reports numbness and tingling in bottom of his feet only, vision changes with reports that his vision bounces around and roaring/ ringing in the ears, performance of sit-ups, chronic hearing change. Pt denies ear pressure, history of concussion or whiplash, weakness, sinus/allergy issues , trouble swallowing, recent overhead lifting, B12 deficiency, eye pressure changes, chirpractor treatment , TMJ/headache. Pt is afraid of falling, walking downstairs is a challenge, he cannot ride a bike and occ has to use his walking sticks. Walking in the dark is really a problem. Prior Treatments and Tests MR brain: some changes on the report but the impression says NAD X-ray left shoulder: downsloping acromion likely impinging the rotator cuff tendons, if clinically indicated, MRI may be helpful. Treatment Goals Patient/Caregiver Goals To improve balance and confidence with walking. PT-OP-C Subjective Start: 02/26/21 07:29 Freq: Status: Active Protocol: Document 06/12/21 09:03 MB (Rec: 06/12/21 09:08 MB [id number]) OP-PT Subjective Patient Comments Patient Comments Pt was picking apples over the weekend and he palpated his neck and noticed it was stiff and he got dizzy when his worked on a portion of it. He knows it is his neck now and he is generally massaging and stretching his neck and it got better. PT-OP-D Balance Start: 02/26/21 07:29 Freq: Status: Active Protocol: Document 02/26/21 14:31 MB (Rec: 02/26/21 16:03 MB [id number]) OP-PT Balance Assessment Sitting Balance Static Sitting Balance Ability Fair Dynamic Sitting Balance Ability Fair Sitting Balance Comments UE support for static and dynamic sitting balance Standing Balance Static Standing Balance Ability Fair Dynamic Standing Balance Ability Fair Standing Balance Comments Pt occ reaches for chair d/t LOB Mullins Fall Scale Copyright Permission PT-OP-H Neuro Start: 02/26/21 07:29 Freq: Status: Active Protocol: Document 02/26/21 14:31 MB (Rec: 02/26/21 16:03 MB [id number]) Sensation Evaluation Comments Summary Comments Pt reports chronic change in sensation both feet Coordination Evaluation Comments Coordination Comments B finger to nose altered d/t B tremor, more noticeable in right UE today Vital Signs Comments Vital Signs Comments Positive orthostatic assessment with BP and HR in LUE: supine 168/81, 73; standing 150/80, 76; standing 30 sec 140/76, 69; standing 1 min 30 sec 144/77, 70. Pt reports spinning type dizziness upon standing PT-OP-J Posture/Palpation/Skin Start: 02/26/21 07:29 Freq: Status: Active Protocol: Document 02/26/21 14:31 MB (Rec: 02/26/21 16:03 MB [id number]) Posture Evaluation Comments Posture Comments Standing with shoes donned: forward head with left tragus 2 1/2 inch in front of left AC joint, rounded left shoulder, decreased cervical and thoracic curvature, increased convexity right thoracic spine , right shoulder lower than the left with some scapular positioning differences, anterior tilt pelvis, head rests in mild right rotation and left SB PT-OP-K Range of Motion Start: 02/26/21 07:29 Freq: Status: Active Protocol: Document 02/26/21 14:31 MB (Rec: 02/26/21 16:03 MB [id number]) Cervical Spine Range of Motion Cervical Spine Active Testing Position Standing Flexion 40 Extension 30 Rotation Left 20 Rotation Right 35 Comments Increased tension right SCM and scalenes Shoulder Goniometric Range of Motion Shoulder ROM Limitations Comments B shoulder flexion and abduction grossly normal and pt reports pain 3-4/10 left shoulder PT-OP-M Strength Start: 02/26/21 07:29 Freq: Status: Active Protocol: Document 02/26/21 14:31 MB (Rec: 02/26/21 16:03 MB [id number]) Shoulder Strength Shoulder Manual Muscle Testing Left Comments NT in setting of injury and painful active movement Right Flexion 5 Normal Abduction (C5) 5 Normal Elbow/Forearm Strength Elbow and Forearm Manual Muscle Testing Left Comments NT in setting of left shoulder injury Right Flexion (C6) 5 Normal Extension (C7) 5 Normal Pronation 5 Normal Supination 5 Normal Wrist Strength Wrist Manual Muscle Testing Left Flexion (C7) 5 Normal Extension (C6) 4 Good Right Flexion (C7) 5 Normal Extension (C6) 5 Normal PT-OP-O Vestibular Start: 02/26/21 07:29 Freq: Status: Active Protocol: Document 02/26/21 14:31 MB (Rec: 02/26/21 16:03 MB [id number]) Vestibular Assessment Visual Testing Smooth Pursuits Horizontal Normal Smooth Pursuits Vertical Normal Gaze Evoked Nystagmus With Fixation Negative Convergence Test WNL Spontaneous Nystagmus Negative Positional Testing [place]-Hallpike Negative Left,Negative Right Rolling Test Negative Left,Negative Right Comments Vestibular Comments Pt reports dizziness with Roll Test moving from right to left and may have had one beat nystagmus but very difficult to see if it was PT-OP-Q Treatments Start: 02/26/21 07:29 Freq: Status: Active Protocol: Document 06/12/21 09:03 MB (Rec: 06/12/21 09:53 MB [id number]) Gait Training Gait Activity Gait and balance activities outside today Comments Gait training without AD today : pavement, sidewalk, grass, unstable grass with hills, over curbs, stepping on cement pieces, on gravel for balance challenges: I gait on flat surfaces of parking lot and side walk, superv for unstable grass with hills and mole hills, CGA for stepping on cement pieces and over curbs PT-OP-T Assessment and Plan Start: 02/26/21 07:29 Freq: Status: Active Protocol: Document 06/12/21 09:03 MB (Rec: 06/12/21 09:08 MB [id number]) Physical Therapy Assessment Rehab Potential Rehabilitation Potential Fair Evaluation Complexity Number of Personal Factors/Comorbidities 1-2 Number of Body Systems Impaired 3 Clinical Presentation at Evaluation Evolving Impairments Impairments Activity Tolerance,Balance, Coordination,Functional Activities,Functional Mobility ,Gait,Pain,Posture,ROM, Sensation,Soft Tissue Mobility ,Strength,Vestibular Other Concerns Fall Risk Yes Goals 3 Shelter Goal (LTG) Pt will perform HEP with I including postural, cervical, VOR, balance, and relaxation exercises to improve dizziness and balance by 07/20/21. 06/06/21: Pt is performing progressive balance, postural, VOR, and LE strengthening exercises. He also has core exercises. LTG Duration 6 weeks 2 Shelter Goal (LTG) Pt will perform WNLs on FGA to decrease fall risk by . 06/06/21: FGA score is one point improved at 22/30. Pt with most trouble with tandem and walking with eyes closed. He con't with trouble with head turns (mildly so) and occ reaches for rail with steps and he does not have imbalance . 04/02/21: FGA score is 21/30 and pt has most trouble gait training with narrow AMADOU, eyes closed, head turns and walking backwards LTG Duration 6 weeks Assessment Summary Assessment Progressed gait and balance outside today and pt performs well with CGA for stepping is more precarious situations like up on concrete pieces. Progress flexibility exercises . Physical Therapy Plan Frequency and Duration Frequency of Treatment 1x/Week Duration of Treatment 6 weeks Plan of Care Start Date 06/06/21 Plan of Care End Date 07/20/21 Therapeutic Interventions Therapeutic Interventions Balance Training,Canalithic Repositioning,Coordination Training,Gait Training,Home Exercise Program,Joint Mobilizations,Manual Therapy, Neuromuscular Re-education, Patient/Caregiver Education, Self-Care/Home Management,Soft Tissue Mobilization,Taping, Therapeutic Activities, Therapeutic Exercises, Vestibular Rehabilitation Modalities Cold Pack/Ice Massage,Hot Packs Other Referrals/Consults Referrals/Consults Recommended Talk with Dr. Foote about whether or not he should get his vaccination booster given severity of reaction to second shot. Next Visit Focus/Plan Next Note Type Treatment Note Next Visit Plan Further gentle cervical exercises, pect stretch in hook lying with knees bent
--- NOTE | 2021-06-22 10:41 | PT.OPDS ---
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) Dizziness and giddiness (06/12/21) Other reduced mobility (06/12/21) Visit Care Team Role Provider Type Neal Foote DO Attending Provider Physician Primary Care Provider Referring Provider Specialty: [facility] Address: [address] [place] [address], [phone] Email: Visit Number Visit Number 19 Discharge Summary PT-OP-B Current Condition Start: 02/26/21 07:29 Freq: Status: Active Protocol: Document 02/26/21 14:31 MB (Rec: 02/26/21 14:49 MB [id number]) Current Condition History of Current Condition Onset Date 12/12/20 Current Complaints Balance issues come and go History of Current Condition Pt states that after his second COVID shot, he had a lot of dizziness and he was horizontal for two days. He had worst dizziness and nausea with eyes opened. He vomited a lot. Pt saw a neurologist. He was concerned about PD and the neurologist said it is not PD. He was told to keep doing the Carrie 3x/day which he has been doing. He was told that dizziness should go away within few months. He went to an opthamologist and was told that his vision is okay. He did see abnormal eye movement in his right eye. 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 He lost his balance nerve and auditory nerve with the surgery. 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 He had balance trouble after the surgery. Ultimately, his brain adjusted and he had normal balance and could ride a bike. He has ringing in his right ear. PMH: essential tremor, removed right acoustic neuroma, B foot numbness Pt states that he is getting better. He did have falls and injured his left shoulder. He always fell to the left. Pt reports left shoulder pain rated 3-4/10. Pt reports 5 falls in the last year and three in the last three months . He is just now feeling comfortable driving in town. Pt reports numbness and tingling in bottom of his feet only, vision changes with reports that his vision bounces around and roaring/ ringing in the ears, performance of sit-ups, chronic hearing change. Pt denies ear pressure, history of concussion or whiplash, weakness, sinus/allergy issues , trouble swallowing, recent overhead lifting, B12 deficiency, eye pressure changes, chirpractor treatment , TMJ/headache. Pt is afraid of falling, walking downstairs is a challenge, he cannot ride a bike and occ has to use his walking sticks. Walking in the dark is really a problem. Prior Treatments and Tests MR brain: some changes on the report but the impression says NAD X-ray left shoulder: downsloping acromion likely impinging the rotator cuff tendons, if clinically indicated, MRI may be helpful. Treatment Goals Patient/Caregiver Goals To improve balance and confidence with walking. PT-OP-C Subjective Start: 02/26/21 07:29 Freq: Status: Active Protocol: Document 06/12/21 09:03 MB (Rec: 06/12/21 09:08 MB [id number]) OP-PT Subjective Patient Comments Patient Comments Pt was picking apples over the weekend and he palpated his neck and noticed it was stiff and he got dizzy when his worked on a portion of it. He knows it is his neck now and he is generally massaging and stretching his neck and it got better. PT-OP-D Balance Start: 02/26/21 07:29 Freq: Status: Active Protocol: Document 02/26/21 14:31 MB (Rec: 02/26/21 16:03 MB [id number]) OP-PT Balance Assessment Sitting Balance Static Sitting Balance Ability Fair Dynamic Sitting Balance Ability Fair Sitting Balance Comments UE support for static and dynamic sitting balance Standing Balance Static Standing Balance Ability Fair Dynamic Standing Balance Ability Fair Standing Balance Comments Pt occ reaches for chair d/t LOB Mullins Fall Scale Copyright Permission PT-OP-H Neuro Start: 02/26/21 07:29 Freq: Status: Active Protocol: Document 02/26/21 14:31 MB (Rec: 02/26/21 16:03 MB [id number]) Sensation Evaluation Comments Summary Comments Pt reports chronic change in sensation both feet Coordination Evaluation Comments Coordination Comments B finger to nose altered d/t B tremor, more noticeable in right UE today Vital Signs Comments Vital Signs Comments Positive orthostatic assessment with BP and HR in LUE: supine 168/81, 73; standing 150/80, 76; standing 30 sec 140/76, 69; standing 1 min 30 sec 144/77, 70. Pt reports spinning type dizziness upon standing PT-OP-J Posture/Palpation/Skin Start: 02/26/21 07:29 Freq: Status: Active Protocol: Document 02/26/21 14:31 MB (Rec: 02/26/21 16:03 MB [id number]) Posture Evaluation Comments Posture Comments Standing with shoes donned: forward head with left tragus 2 1/2 inch in front of left AC joint, rounded left shoulder, decreased cervical and thoracic curvature, increased convexity right thoracic spine , right shoulder lower than the left with some scapular positioning differences, anterior tilt pelvis, head rests in mild right rotation and left SB PT-OP-K Range of Motion Start: 02/26/21 07:29 Freq: Status: Active Protocol: Document 02/26/21 14:31 MB (Rec: 02/26/21 16:03 MB [id number]) Cervical Spine Range of Motion Cervical Spine Active Testing Position Standing Flexion 40 Extension 30 Rotation Left 20 Rotation Right 35 Comments Increased tension right SCM and scalenes Shoulder Goniometric Range of Motion Shoulder ROM Limitations Comments B shoulder flexion and abduction grossly normal and pt reports pain 3-4/10 left shoulder PT-OP-M Strength Start: 02/26/21 07:29 Freq: Status: Active Protocol: Document 02/26/21 14:31 MB (Rec: 02/26/21 16:03 MB [id number]) Shoulder Strength Shoulder Manual Muscle Testing Left Comments NT in setting of injury and painful active movement Right Flexion 5 Normal Abduction (C5) 5 Normal Elbow/Forearm Strength Elbow and Forearm Manual Muscle Testing Left Comments NT in setting of left shoulder injury Right Flexion (C6) 5 Normal Extension (C7) 5 Normal Pronation 5 Normal Supination 5 Normal Wrist Strength Wrist Manual Muscle Testing Left Flexion (C7) 5 Normal Extension (C6) 4 Good Right Flexion (C7) 5 Normal Extension (C6) 5 Normal PT-OP-O Vestibular Start: 02/26/21 07:29 Freq: Status: Active Protocol: Document 02/26/21 14:31 MB (Rec: 02/26/21 16:03 MB [id number]) Vestibular Assessment Visual Testing Smooth Pursuits Horizontal Normal Smooth Pursuits Vertical Normal Gaze Evoked Nystagmus With Fixation Negative Convergence Test WNL Spontaneous Nystagmus Negative Positional Testing [place]-Hallpike Negative Left,Negative Right Rolling Test Negative Left,Negative Right Comments Vestibular Comments Pt reports dizziness with Roll Test moving from right to left and may have had one beat nystagmus but very difficult to see if it was PT-OP-T Assessment and Plan Start: 02/26/21 07:29 Freq: Status: Active Protocol: Document 06/22/21 10:36 MB (Rec: 06/22/21 10:41 MB [id number]) Physical Therapy Plan Discharge Physical Therapy Discharge Reasons Patient Request Discharge Comments calls to cancel pt's last two appointments, stating that he does not need any more PT. Will d/c PT.
== END 2021-06-22 14:16 | disposition home or self-care (01) ==
LOC: PHYS 09:00
PROVIDERS: PCP Family Medicine; Referring Provider Family Medicine; Visit Provider Family Medicine
DX: D33.3 Benign neoplasm of cranial nerves (principal); R42 Dizziness and giddiness; Z74.09 Other reduced mobility
CPT/HCPCS: 95992; 97110; 97112; 97116; 97140; 97162; 97535

== ENCOUNTER → 2022-02-08 11:29 | Outpatient (CLI) | payer OTHER, SELFPAY ==
[2022-02-08 12:08] LABS: Add Manual Diff / Slide Review NO; Basophils Absolute Auto 0 /uL (0-100); Basophils Percent Auto 0.5 % (0-2); Eosinophils Absolute Auto 0 /uL (0-450); Eosinophils Percent Auto 0.4 % (2-4); Hematocrit 44.3 % (41-53); Hemoglobin 15.5 g/dL (13.5-17.5); Lymphocytes Absolute Auto 1200 /uL (1100-4500); Lymphocytes Percent Auto 14.1 % (25-40); Mean Corpuscular Hemoglobin 32.8 PG (26-34); Mean Corpuscular Volume 93.6 fL (80-100); Monocytes Absolute Auto 400 /uL (0-900); Monocytes Percent Auto 4.4 % (3-14); Neutrophils Absolute Auto 6700 /uL (1500-7000); Neutrophils Percent Auto 80.6 % (50-75); Platelet Count 240 X10^3/uL (150-400); Red Blood Cell Count 4.73 X10^6/uL (4.5-5.9); Red Cell Distribution Width 12.7 % (11.6-14.8); White Blood Cell Count 8.3 X10^3/uL (4.5-11.0)
[2022-02-08 12:23] LABS: Alanine Aminotransferase 21 IU/L (<50); Albumin Globulin Ratio 1.4 (1.0-2.8); Alkaline Phosphatase 74 U/L (38-126); Aspartate Aminotransferase 33 IU/L (17-59); BUN Creatinine Ratio 22.2 (6-22); Bilirubin Total 0.6 mg/dL (0.2-1.3); Blood Urea Nitrogen 18 mg/dL (9-20); Calcium 9.1 mg/dL (8.4-10.2); Carbon Dioxide 27 mmol/L (22-32); Chloride 108 mmol/L (98-107); Cholesterol 182 mg/dL (140-199); Estimated Glomerular Filt Rate > 60 mL/min (>60); Globulin 2.9 g/dL (1.7-4.1); Glucose 108 mg/dL (80-110); HDL Cholesterol 51 mg/dL (40-60); HEMOLYSIS < 15 (0-50); LDL Cholesterol Calculated 118 mg/dL (<100); Potassium 4.1 mmol/L (3.4-5.1); Sodium 139 mmol/L (137-145); Total Protein 6.9 g/dL (6.3-8.2); Triglycerides 67 mg/dL (35-150)
[2022-02-08 12:52] LABS: Prostate Specific Antigen Scrn 1.26 ng/mL (0.1-4.0)
[2022-02-08 12:58] LABS: TSH w/ Reflex to FT4 2.95 uIU/mL (0.47-4.68)
== END ==
PROVIDERS: PCP Family Medicine; Referring Provider Family Medicine; Visit Provider Family Medicine
DX: N13.8 Other obstructive and reflux uropathy (principal); I10 Essential (primary) hypertension; Z12.5 Encounter for screening for malignant neoplasm of prostate; N40.1 Benign prostatic hyperplasia with lower urinary tract symptoms; Z13.220 Encounter for screening for lipoid disorders
CPT/HCPCS: 36415; 80053; 80061; 84443; 85025; G0103

== ENCOUNTER → 2022-06-13 14:42 | Outpatient (CLI) | payer OTHER, SELFPAY ==
[2022-06-13 16:16] LABS: Prostate Specific Antigen Scrn 1.42 ng/mL (0.1-4.0)
== END ==
PROVIDERS: PCP Family Medicine; Referring Provider Family Medicine; Visit Provider Family Medicine
DX: Z12.5 Encounter for screening for malignant neoplasm of prostate (principal)
CPT/HCPCS: 36415; G0103

== ENCOUNTER → 2022-09-16 13:31 | Outpatient (CLI) | payer OTHER, SELFPAY ==
[2022-09-16 15:06] LABS: Prostate Specific Antigen 1.41 ng/mL (0.10-4.00)
== END ==
PROVIDERS: PCP Family Medicine; Referring Provider Family Medicine; Visit Provider Family Medicine
DX: R97.20 Elevated prostate specific antigen [PSA] (principal); Z12.5 Encounter for screening for malignant neoplasm of prostate
CPT/HCPCS: 36415; 84153

== ENCOUNTER → 2022-12-02 13:30 | Outpatient (CLI) | payer OTHER, SELFPAY ==
[2022-12-04 10:09] LABS: Fecal Immunochemical Test Negative (Negative)
== END ==
PROVIDERS: PCP Family Medicine; Referring Provider Family Medicine; Visit Provider Family Medicine
DX: Z12.11 Encounter for screening for malignant neoplasm of colon (principal)
CPT/HCPCS: 82274

== ENCOUNTER 2023-05-20 08:05 | Day surgery (SDC) | payer OTHER, SELFPAY ==
[2023-05-20 08:43] VITALS: BMI 28.7
[2023-05-20 08:53] VITALS: BP 154/83; PULSE 75; RESP 18; TEMP 36.1; O2SAT 97
[2023-05-20] MEDS: LACTATED RINGERS 1,000 ML 200 ML IV (08:55)
--- NOTE | 2023-05-20 09:49 | PM.HP.1 ---
History of Present Illness History of Present Illness Date Patient Seen: 05/20/23 Time Patient Seen: 09:49 Chief complaint: [facility] Narrative: 72-year-old man personal history of colonic polyps here for screening colonoscopy. Last colonoscopy 2017. No abdominal concerns at this time including abdominal pain nausea vomiting unintentional weight loss. No family history of intestinal cancer. [facility] Medical History Acoustic neuroma (1987) Benign colon polyp (01/23/18) Body posture problem BPH w urinary obs/LUTS Cellulitis of right foot Diverticular disease (2006) Edema Hearing loss (1987) History of poliovirus vaccination (1954) History of recurrent ear infection (1955) Hyperglycemia Measles (1955) Medicare annual wellness visit, subsequent Nocturia Screening for hyperlipidemia Screening for prostate cancer Skin cancer (1993) Tinnitus (1967) Vertigo Surgical History Anesthesia H/O knee surgery H/O vasectomy History of brain surgery (1987) History of colonoscopy (11/24/06) History of colonoscopy with polypectomy (01/23/18) Status post surgical removal of malignant neoplasm of skin (2010) Status post tonsillectomy and adenoidectomy Family History Father Hypertension Prostate cancer Grandmother Alzheimer's disease Mother Alzheimer's disease Skin cancer Heart disease Grandfather Motorcycle accident Grandmother Alzheimer's disease Heart disease Grandfather No problems noted. Grandmother No problems noted. Social History marital status: number of children: 2 household members: spouse Smoking Status: Never smoker alcohol intake: never caffeine: No Meds Home Medications and Allergies Home Medications Medication Instructions Recorded Confirmed Type multivitamin 1 tab PO DAILY 02/08/22 05/20/23 History valacyclovir 1 gram tablet 1,000 mg PO TID #21 tabs 06/13/22 05/20/23 Rx propranolol 60 mg tablet 30 mg PO BID #90 tabs 09/09/22 05/20/23 Rx Allergies Allergy/AdvReac Type Severity Reaction Status Date / Time No Known Drug Allergies Allergy Verified 05/20/23 08:41 Exam Vital Signs (past 8 hours): - 05/20/23 08:53 Temperature 97.0 F L Pulse Rate 75 Respiratory Rate 18 Blood Pressure 154/83 H Pulse Oximetry 97 Oxygen Delivery Method Room Air Oxygen Delivery Method Room Air Narrative Exam Narrative: General adult man alert oriented no acute distress Abdomen soft nontender nondistended Assessment & Plan Assessment and plan (1) Personal history of colonic polyps: Status: Acute Assessment & Plan narrative: The patient requires colorectal screening and colonoscopy is recommended. Technical details were discussed. Risks, benefits, alternatives explained. Risks including but not limited to myocardial infarction, aspiration, bleeding, pain, missed lesion, incomplete examination, need for further radiographic studies, colonic perforation, and need for major abdominal surgery were discussed. All questions were answered to their satisfaction, and they are in agreement with this plan.
--- NOTE | 2023-05-20 09:51 | PM.OP.COLON ---
Operative Date/Time/Diagnoses Date of procedure: 05/20/23 Time of procedure: 09:51 Pre-op diagnosis: Personal history of colonic polyps Post-op diagnosis: same Procedure & Clinicians Study performed: Colonoscopy Same procedure as scheduled: Yes Indications: Personal history of colonic polyps Surgeon: Garfield Streeter Procedure Notes Procedure in detail: The history and physical was performed/updated and the patient is ASA class is 2. The procedure was discussed in detail with the patient. Potential risks complications including infection, bleeding, missed diagnosis, perforation, need for surgery, and were explained. Their questions were answered and informed consent was obtained. Patient was brought to the procedure room and placed standard monitoring equipment. The patient's vital signs were monitored continuously throughout the entire procedure. Prior to starting time-out was performed. The patient was placed in the left lateral recumbent position. Procedural sedation was administered by anesthesia. Examination began with a thorough inspection of the perianal area there was no evidence of fissures, fistulae, external hemorrhoids or cutaneous malignancy. The colonoscopy scope was then placed into the anal canal and was advanced to the cecum, which was identified by the ileocecal valve, the appendiceal orifice and the confluence of the taenia. The scope was then slowly withdrawn examining colon thoroughly in all directions, irrigating it of any residual stool. No masses or polyps. Sigmoid colon notable for moderate diverticulosis. The patient tolerated the procedure well. They will be discharged once criteria are met. The prep was of good/excellent quality. The withdrawl time was 7 minutes. Impression: Normal colonoscopy. Post-procedure Recommendations: High fiber diet Plan for aftercare: No further colonoscopy necessary unless symptomatic Disposition: same day surgery
[2023-05-20 10:22] VITALS: BP 151/77; PULSE 66; RESP 13; TEMP 37.1; O2SAT 94
[2023-05-20 10:25] VITALS: BP 139/78; PULSE 69; RESP 13; O2SAT 96
[2023-05-20 10:29] VITALS: BP 145/75; PULSE 69; RESP 14; TEMP 36.2; O2SAT 98
[2023-05-20 10:46] VITALS: BP 151/77; PULSE 60; RESP 17; TEMP 36.3; O2SAT 99
== END 2023-05-20 10:59 | disposition home or self-care (01) ==
PROVIDERS: PCP Family Medicine; Referring Provider Surgery; Visit Provider Surgery
PROC: 0DJD8ZZ Inspection of Lower Intestinal Tract, Via Natural or Artificial Opening Endoscopic (ICD-10-PCS; CPT 45378; principal; 2023-05-20 09:45)
DX: Z12.11 Encounter for screening for malignant neoplasm of colon (principal); Z86.010 Personal history of colon polyps; K57.30 Diverticulosis of large intestine without perforation or abscess without bleeding
CPT/HCPCS: 45378; J2704; J3010

== ENCOUNTER → 2023-05-28 07:09 | Outpatient (CLI) | payer OTHER, SELFPAY ==
[2023-05-28 07:57] LABS: Add Manual Diff / Slide Review NO; Basophils Absolute Auto 100 /uL (0-100); Basophils Percent Auto 0.8 % (0-2); Eosinophils Absolute Auto 100 /uL (0-450); Eosinophils Percent Auto 2.4 % (2-4); Hematocrit 44.2 % (41-53); Hemoglobin 15.3 g/dL (13.5-17.5); Lymphocytes Absolute Auto 1400 /uL (1100-4500); Lymphocytes Percent Auto 22.3 % (25-40); Mean Corpuscular HGB Conc 34.7 % (30-36); Mean Corpuscular Hemoglobin 33.9 PG (26-34); Mean Corpuscular Volume 97.7 fL (80-100); Monocytes Absolute Auto 500 /uL (0-900); Monocytes Percent Auto 7.4 % (3-14); Neutrophils Absolute Auto 4200 /uL (1500-7000); Neutrophils Percent Auto 67.1 % (50-75); Platelet Count 232 X10^3/uL (150-400); Red Blood Cell Count 4.52 X10^6/uL (4.5-5.9); Red Cell Distribution Width 13.8 % (11.6-14.8); White Blood Cell Count 6.2 X10^3/uL (4.5-11.0)
[2023-05-28 08:20] LABS: Creatinine Urine Random 188.2 mg/dL
[2023-05-28 08:21] LABS: Alanine Aminotransferase 23 IU/L (<50); Albumin 3.9 g/dL (3.5-5.0); Albumin Globulin Ratio 1.6 (1.0-2.8); Alkaline Phosphatase 57 U/L (38-126); Aspartate Aminotransferase 32 IU/L (17-59); Bilirubin Total 0.6 mg/dL (0.2-1.3); Blood Urea Nitrogen 18 mg/dL (9-20); Calcium 9.2 mg/dL (8.4-10.2); Carbon Dioxide 29 mmol/L (22-32); Chloride 103 mmol/L (98-107); Cholesterol 157 mg/dL (140-199); Estimated Glomerular Filt Rate > 60 mL/min (>60); Globulin 2.4 g/dL (1.7-4.1); Glucose 107 mg/dL (80-110); HDL Cholesterol 43 mg/dL (40-60); HEMOLYSIS < 15 (0-50); LDL Cholesterol Calculated 101 mg/dL (<100); Potassium 5.2 mmol/L (3.4-5.1); Sodium 137 mmol/L (137-145); Total Protein 6.3 g/dL (6.3-8.2); Triglycerides 67 mg/dL (35-150)
[2023-05-28 08:25] LABS: Microalbumi Creatinin Ratio Ur 14.8 ug/mg CR (<30); Microalbumin Urine Random 2.8 mg/dL (0-1.6)
[2023-05-28 08:50] LABS: Prostate Specific Antigen Scrn 1.61 ng/mL (0.1-4.0)
== END ==
PROVIDERS: PCP Family Medicine; Referring Provider Family Medicine; Visit Provider Family Medicine
DX: Z00.00 Encounter for general adult medical examination without abnormal findings (principal); C44.91 Basal cell carcinoma of skin, unspecified; N13.8 Other obstructive and reflux uropathy; K57.90 Diverticulosis of intestine, part unspecified, without perforation or abscess without bleeding; R25.1 Tremor, unspecified; N40.1 Benign prostatic hyperplasia with lower urinary tract symptoms; Z12.5 Encounter for screening for malignant neoplasm of prostate; Z13.220 Encounter for screening for lipoid disorders
CPT/HCPCS: 36415; 80053; 80061; 82043; 82570; 85025; G0103

== ENCOUNTER → 2023-07-28 19:00 | Outpatient (ROUT) | payer OTHER, SELFPAY | PROVIDERS: PCP Family Medicine; Visit Provider Dermatology | DX: L02.92 Furuncle, unspecified (principal) | CPT/HCPCS: 87070; 87075; 87205 ==

== ENCOUNTER → 2023-12-19 07:31 | Outpatient (CLI) | payer OTHER, SELFPAY ==
[2023-12-19 09:16] LABS: Prostate Specific Antigen 1.52 ng/mL (0.10-4.00)
== END ==
PROVIDERS: PCP Family Medicine; Referring Provider Family Medicine; Visit Provider Family Medicine
DX: Z12.5 Encounter for screening for malignant neoplasm of prostate (principal)
CPT/HCPCS: 36415; 84153

== ENCOUNTER → 2024-06-24 09:03 | Outpatient (CLI) | payer OTHER, SELFPAY ==
[2024-06-24 09:55] LABS: Add Manual Diff / Slide Review NO; Basophils Absolute Auto 0 /uL (0-100); Basophils Percent Auto 0.7 % (0-2); Eosinophils Absolute Auto 100 /uL (0-450); Eosinophils Percent Auto 1.4 % (2-4); Hematocrit 44.7 % (41-53); Hemoglobin 15.5 g/dL (13.5-17.5); Lymphocytes Absolute Auto 1500 /uL (1100-4500); Lymphocytes Percent Auto 23.4 % (25-40); Mean Corpuscular HGB Conc 34.7 % (30-36); Mean Corpuscular Hemoglobin 34.2 PG (26-34); Mean Corpuscular Volume 98.7 fL (80-100); Monocytes Absolute Auto 500 /uL (0-900); Monocytes Percent Auto 7.3 % (3-14); Neutrophils Absolute Auto 4300 /uL (1500-7000); Neutrophils Percent Auto 67.2 % (50-75); Platelet Count 203 X10^3/uL (150-400); Red Blood Cell Count 4.53 X10^6/uL (4.5-5.9); Red Cell Distribution Width 12.9 % (11.6-14.8); White Blood Cell Count 6.3 X10^3/uL (4.5-11.0)
[2024-06-24 10:13] LABS: Alanine Aminotransferase 18 IU/L (<50); Albumin 3.7 g/dL (3.5-5.0); Albumin Globulin Ratio 1.5 (1.0-2.8); Alkaline Phosphatase 67 U/L (38-126); Aspartate Aminotransferase 31 IU/L (17-59); BUN Creatinine Ratio 20.2 (6-22); Bilirubin Total 1.1 mg/dL (0.2-1.3); Blood Urea Nitrogen 17 mg/dL (9-20); Calcium 9.3 mg/dL (8.4-10.2); Carbon Dioxide 30 mmol/L (22-32); Chloride 104 mmol/L (98-107); Cholesterol 156 mg/dL (140-199); Estimated Glomerular Filt Rate > 60 mL/min (>60); Globulin 2.4 g/dL (1.7-4.1); Glucose 105 mg/dL (80-110); HDL Cholesterol 48 mg/dL (40-60); HEMOLYSIS < 15 (0-50); LDL Cholesterol Calculated 97 mg/dL (<100); Potassium 4.7 mmol/L (3.4-5.1); Sodium 137 mmol/L (137-145); Total Protein 6.1 g/dL (6.3-8.2); Triglycerides 54 mg/dL (35-150)
[2024-06-24 10:42] LABS: TSH w/ Reflex to FT4 2.13 uIU/mL (0.47-4.68)
[2024-06-24 11:02] LABS: Creatinine Urine Random 180.28 mg/dL
[2024-06-24 11:07] LABS: Microalbumin Urine Random 0.6 mg/dL (0-1.6)
[2024-06-25 07:11] LABS: Apolipoprotein B 85 mg/dL (<90)
== END ==
PROVIDERS: Family Provider Family Medicine; PCP Family Medicine; Referring Provider Family Medicine; Visit Provider Family Medicine
DX: K57.90 Diverticulosis of intestine, part unspecified, without perforation or abscess without bleeding (principal); Z12.5 Encounter for screening for malignant neoplasm of prostate; R25.1 Tremor, unspecified; Z00.00 Encounter for general adult medical examination without abnormal findings; Z13.220 Encounter for screening for lipoid disorders; N40.1 Benign prostatic hyperplasia with lower urinary tract symptoms; N13.8 Other obstructive and reflux uropathy; R97.20 Elevated prostate specific antigen [PSA]; C44.91 Basal cell carcinoma of skin, unspecified
CPT/HCPCS: 36415; 80053; 80061; 82043; 82172; 82570; 84443; 85025; G0103

== ENCOUNTER 2024-12-14 12:20 | Day surgery (SDC) | payer OTHER, SELFPAY ==
[2024-12-01 12:58] VITALS: BMI 29.4
[2024-12-14 14:12] VITALS: BP 142/64; PULSE 47; RESP 16; TEMP 36.7; O2SAT 99
[2024-12-14 14:13] VITALS: BMI 28.3
[2024-12-14] MEDS: LACTATED RINGERS 1,000 ML 42 ML IV (14:32)
[2024-12-14] MEDS: ACETAMINOPHEN 325 MG TABLET 975 MG PO (14:32)
--- NOTE | 2024-12-14 15:41 | P.HP_ITS ---
History of Present Illness History of Present Illness Date Patient Seen: 12/14/24 Time Patient Seen: 15:41 Chief complaint: [facility] Narrative: 74-year-old white male has had a right groin bulge for a few months. He has been wearing a truss. It sticks out while he is standing but it will spontaneously reduced when he lays. He denies obstructive symptoms. [facility] Medical History Essential tremor Basal cell carcinoma Right inguinal hernia Cellulitis of right foot Medicare annual wellness visit, subsequent Screening for prostate cancer Body posture problem Vertigo Screening for hyperlipidemia Nocturia BPH w urinary obs/LUTS Benign colon polyp (01/23/18) Acoustic neuroma (1987) Diverticular disease (2006) Hyperglycemia Edema History of poliovirus vaccination (1954) Measles (1955) Tinnitus (1967) History of recurrent ear infection (1955) Hearing loss (1987) Skin cancer (1993) Surgical History H/O vasectomy H/O knee surgery History of colonoscopy with polypectomy (01/23/18) History of colonoscopy (11/24/06) Anesthesia Status post surgical removal of malignant neoplasm of skin (2010) History of brain surgery (1987) Status post tonsillectomy and adenoidectomy Family History Father Hypertension Prostate cancer Grandmother Alzheimer's disease Mother Alzheimer's disease Skin cancer Heart disease Grandfather Motorcycle accident Grandmother Alzheimer's disease Heart disease Grandfather No problems noted. Grandmother No problems noted. Social History marital status: number of children: 2 household members: spouse lives independently: Yes education level: master's degree occupational status: previously employed Smoking Status: Never smoker alcohol intake: never substance use type: does not use caffeine: No Meds Home Medications and Allergies Home Medications Medication Instructions Recorded Confirmed Type multivitamin 1 tab PO DAILY 02/08/22 10/28/24 History propranolol 60 mg tablet 30 mg (1/2 x 60 mg) PO BID #90 tabs 03/13/24 01/23/25 Rx tamsulosin 0.4 mg capsule 0.4 mg PO ONCE PM 12/01/24 12/01/24 History Allergies Allergy/AdvReac Type Severity Reaction Status Date / Time No Known Drug Allergies Allergy Verified 10/28/24 10:34 Review of Systems Review of Systems ROS: Yes All systems reviewed with the patient and are negative except as otherwise documented Exam Vital Signs (past 8 hours): - 12/14/24 14:12 Temperature 98.1 F Pulse Rate 47 L Respiratory Rate 16 Blood Pressure 142/64 H Pulse Oximetry 99 Oxygen Delivery Method Room Air Oxygen Delivery Method Room Air Narrative Exam Narrative: Gen: NAD, sitting comfortably in bed, appears well HEENT: Sclera are anicteric, head is normocephalic and atraumatic, trachea is midline. CV: RRR, no JVD Resp: clear to auscultation bilaterally, equal chest wall movement bilaterally Abd: soft, nontender, normoactive bowel sounds. right inguinal hernia Ext: no edema, full range of motion Neuro: Cranial nerves II-XII grossly intact, no focal deficits Skin: No erythema or ecchymosis Assessment & Plan Assessment and plan (1) Right inguinal hernia: Status: Acute Assessment & Plan narrative: Risks include but are not limited to bleeding, infection, 5% chance of chronic pain, 1 in a 1000 chance of needing mesh explantation in the future, 2% chance of recurrence of the hernia. Risks of observation include a 50% chance over the next 10 years of worsening pain that would drive him to have surgery regardless, unlikely chance of incarceration or strangulation. Patient agrees to proceed with: Time-Based Coding :: [TOTAL MINUTES] spent with patient and on the chart (including review of chart, obtaining history, exam, reviewing outside data, placing orders, documenting exam and treatment plan, and counseling patient) on [DATE]. PROFEE Derrick Worker [employer] Document charge(s): No
[2024-12-14] MEDS: CEFAZOLIN 2 GM/100 ML PREMIX 100 ML IV (15:51)
--- NOTE | 2024-12-14 15:56 | SUR.OPER ---
Prone on spine table, head in foam head support, padded chest and pelvic supports, gel pad at knees, lower legs supported by pillows; nipples, genitalia and toes free of pressure, arms secured on foam padded arm boards at <90 degrees abduction. Tape over blanket at thigh secured to table.
[2024-12-14] MEDS: BUPIVACAINE 0.5% W/ EPI (PF) 30 ML VIAL INJ (16:04)
[2024-12-14] MEDS: LIDOCAINE 2% INJ MDV 20ML 20 ML INJ (16:06)
--- NOTE | 2024-12-14 16:36 | PM.OP.1 ---
Operative Date/Time/Diagnoses Date of procedure: 12/14/24 Time of procedure: 16:36 Pre-op diagnosis: Right inguinal hernia Post-op diagnosis: same Procedure & Clinicians Procedure: Open repair of right inguinal hernia with mesh Same procedure as scheduled: Yes Indications: Painful right inguinal hernia Surgeon: Federico Farooq [employer] Operator: Benitez Salas Click Yes if Unassisted: No Anesthesia Type: MAC +/- Operative Notes Findings: Indirect hernia Closure Type: primary Specimen(s): none sent Prosthetic devices, grafts, tissues, transplants, or devices: Large Bard PerFix plug and patch Estimated Blood Loss (mL): 5 Procedure in detail: Patient was brought to the operating room suite. General anesthesia was induced. The groin was shaved prepped and draped in the usual fashion. Total 30 mL of 0.5% Marcaine was used to perform an ilioinguinal nerve block and cord block and field block. Transverse incision was made over the groin and carried down to the external oblique fibers with Bovie electrocautery. The external oblique fibers were opened along the direction of the fibers and retracted superiorly and inferiorly. The floor of the inguinal canal was inspected to evaluate for direct defect. The cord structures were ensnared with a Sourav drain. There was an indirect defect that was dissected free from the cord structures and along with the large cord lipoma was reduced back into the abdomen. A large Bard PerFix plug was placed through the indirect defect. A patch was placed over the floor. 2-0 PDS was used to affix the patch from Kirk's ligament with a running stitch inferiorly along the inguinal ligament. The 2 leaflets and plug were all brought together and affixed to recreate the deep ring. Another 2-0 PDS suture was used to affix the mesh to the conjoined tendon thus reapproximating the floor. The ilioinguinal nerve was identified and neurolysis was performed. External oblique was closed with running 3-0 Vicryl. Yg's closed 3-0 Vicryl. Skin was closed with 4-0 Monocryl and Dermabond. Patient tolerated the procedure well was transferred to PACU in stable condition for anticipated same-day discharge. Complications: none Post-operative Condition: stable Disposition: PACU Plan for aftercare: Home
[2024-12-14 16:37] VITALS: BP 119/65; PULSE 52; RESP 17; TEMP 36.4; O2SAT 96
[2024-12-14 16:44] VITALS: BP 121/64; PULSE 51; RESP 11; O2SAT 97
[2024-12-14 16:47] VITALS: BP 125/65; PULSE 54; RESP 10; O2SAT 96
[2024-12-14] MEDS: methocarbamoL 500 MG TABLET PO (16:52)
[2024-12-14 16:56] VITALS: BP 135/71; PULSE 48; RESP 10; O2SAT 96
[2024-12-14 17:06] VITALS: BP 145/77; PULSE 43; RESP 12; TEMP 36.2; O2SAT 96
== END 2024-12-14 17:46 | disposition home or self-care (01) ==
PROVIDERS: Family Provider Family Medicine; PCP Family Medicine; Referring Provider Surgery; Visit Provider Surgery
PROC: (CPT 49505; principal; 2024-12-14 14:00)
DX: K40.90 Unilateral inguinal hernia, without obstruction or gangrene, not specified as recurrent (principal); D17.6 Benign lipomatous neoplasm of spermatic cord
CPT/HCPCS: 49505; C1781; J0690; J2704; J3010

== ENCOUNTER → 2025-07-04 07:11 | Outpatient (CLI) | payer OTHER, SELFPAY ==
[2025-07-04 07:57] LABS: Add Manual Diff / Slide Review NO; Hematocrit 45.4 % (41-53); Hemoglobin 15.9 g/dL (13.5-17.5); Lymphocytes Absolute Auto 1500 /uL (1100-4500); Mean Corpuscular HGB Conc 35.1 % (30-36); Mean Corpuscular Hemoglobin 34.3 PG (26-34); Mean Corpuscular Volume 97.7 fL (80-100); Platelet Count 246 X10^3/uL (150-400)
[2025-07-04 08:18] LABS: Alanine Aminotransferase 19 IU/L (<50); Albumin 4.1 g/dL (3.5-5.0); Albumin Globulin Ratio 1.5 (1.0-2.8); Alkaline Phosphatase 70 U/L (38-126); Blood Urea Nitrogen 16 mg/dL (9-20); Calcium 9.3 mg/dL (8.4-10.2); Carbon Dioxide 28 mmol/L (22-32); Chloride 103 mmol/L (98-107); Cholesterol 173 mg/dL (140-199); Estimated Glomerular Filt Rate > 60 mL/min (>60); Globulin 2.7 g/dL (1.7-4.1); Glucose 105 mg/dL (70-99); HDL Cholesterol 53 mg/dL (40-60); HEMOLYSIS < 15 (0-50); Potassium 5.0 mmol/L (3.4-5.1); Sodium 138 mmol/L (137-145); Total Protein 6.8 g/dL (6.3-8.2); Triglycerides 67 mg/dL (35-150)
[2025-07-04 08:49] LABS: TSH w/ Reflex to FT4 4.21 uIU/mL (0.47-4.68)
== END ==
PROVIDERS: PCP Family Medicine; Referring Provider Family Medicine; Visit Provider Family Medicine
DX: R25.1 Tremor, unspecified (principal); Z13.220 Encounter for screening for lipoid disorders; Z12.5 Encounter for screening for malignant neoplasm of prostate; N40.1 Benign prostatic hyperplasia with lower urinary tract symptoms; N13.8 Other obstructive and reflux uropathy
CPT/HCPCS: 36415; 80053; 80061; 82172; 82274; 84443; 85025; G0103

== ENCOUNTER → 2025-07-06 13:35 | Outpatient (CLI) | payer OTHER, SELFPAY ==
--- NOTE | 2025-07-06 13:37 | DI.ECHO.S_ITS ---
:Name: CATIE PERAZA Study Date: 07/06/2025 Height: 70 in : :Hospital ReadingLocation: Weight: 200 lb : : Gender: Male BSA: 2.1 m2 : :: 1950 Age: 74 yrs BP: 153/71 mmHg: :Reason For Study: MURMUR : :Ordering Physician: NATANAEL BARNES Performed By: Tunde Mckee : :Referring: NATANAEL BARNES : + + Interpretation Summary Sinus bradycardia with heart rate 55 bpm. Normal LV size and wall thickness. Normal wall motion and LV systolic function. Ejection fraction is 60-65%. Mild right atrial enlargement and RV enlargement. No significant valvular abnormalities to explain observed murmur. No prior echo report available for comparison. Procedure: A two-dimensional transthoracic echocardiogram with color flow and Doppler was performed. The study quality was technically good. Comparison is made with the echocardiogram of 11/02/2003. The patient was in sinus bradycardia with heart rates between 55 bpm during the exam. Left Ventricle: The left ventricle is normal in size. There is normal left ventricular wall thickness. There is no ventricular septal defect visualized. The ejection fraction is estimated to be 60-65%. There are no focal wall motion abnormalities. Diastolic parameters suggest probable normal left ventricular diastolic function and normal filling pressures. Right Ventricle: The right ventricle is mildly dilated. The right ventricular systolic function is normal. Atria: Borderline left atrial enlargement. The right atrium is mildly dilated. There is no Doppler evidence for an interatrial shunt. Mitral Valve: The mitral valve leaflets are mildly calcified. There is trace mitral regurgitation. Aortic Valve: The aortic valve is trileaflet. The aortic valve opens well. There is no hemodynamically significant valvular aortic stenosis. No aortic regurgitation is present. Tricuspid Valve: The tricuspid valve is normal in structure and function. There is a trace or physiologic amount of tricuspid regurgitation. Pulmonic Valve: The pulmonic valve is not well seen, but is grossly normal. Velocity increase through MPA. There is trace pulmonic regurgitation. Great Vessels: The aortic root is normal size. The dimensions of the ascending aorta are normal. The pulmonary is not well visualized. The IVC is of normal diameter and collapses greater than 50% with a sniff. This suggests a low right atrial pressure of 3 mm Hg. Pericardium/ Pleura There is no pericardial effusion. There is no pleural effusion. MMode/2D Measurements & Calculations LVIDd: 4.5 cm LVOT diam: 1.9 cm LVIDs: 2.0 cm Ao root diam: 2.9 cm FS: 54.6 % asc Aorta Diam: 3.0 cm EPSS: 0.43 cm IVSd: 1.0 cm LVPWd: 0.96 cm LV zepeda. diameter/BSA (cm/m^2): 2.2 LV sys. diameter/BSA (cm/m^2): 0.98 LA A2 area: 21.9 cm2 RA long axis: 5.6 cm LA A4 area: 22.0 cm2 RA area: 22.7 cm2 LA length (vol): 5.7 cm RA vol: 78.8 ml LA vol: 71.4 ml RA : 37.8 ml/m2 LA vol index: 34.2 ml/m2 IVC diam: 1.8 cm RVD1 (basal): 4.0 cm RVD2 (mid): 3.3 cm TAPSE: 2.9 cm Doppler Measurements & Calculations Ao V2 max: 209.2 cm/sec LVOT Max Ludwig: 85.5 cm/sec Ao V2 mean: 133.5 cm/sec LV V1 max P.9 mmHg Ao max P.5 mmHg LV V1 VTI: 21.2 cm Ao mean P.5 mmHg BALWINDER(I,D): 1.2 cm2 Ao V2 VTI: 47.8 cm BALWINDER(V,D): 1.1 cm2 sev ratio: 0.44 BALWINDER indexed to BSA (cm^2/m^2): 0.59 MV E max ludwig: 80.5 cm/sec TR max ludwig: 222.8 cm/sec MV A max ludwig: 70.1 cm/sec TR max P.9 mmHg MV E/A: 1.1 Med Peak E' Ludwig: 11.1 cm/sec E/E' med: 7.2 Lat Peak E' Ludwig: 8.8 cm/sec E/E' lat: 9.2 E/e' average: 8.2 MV dec time: 0.17 sec SV(LVOT): 59.2 ml
== END ==
LOC: ECHO 13:36
PROVIDERS: PCP Family Medicine; Referring Provider Family Medicine; Visit Provider Family Medicine
DX: R01.1 Cardiac murmur, unspecified (principal)
CPT/HCPCS: 93306